=== PATIENT | female | born 1945 | race Caucasian/White ===

== ENCOUNTER 2020-08-15 15:10 | Inpatient (IN) | payer MEDICARE, OTHER, SELFPAY ==
[2020-08-15 15:36] VITALS: BP 143/79; PULSE 95; RESP 19; TEMP 37.1; O2SAT 93; BMI 29.2
--- NOTE | 2020-08-15 15:37 | XRR_ITS ---
PROCEDURE INFORMATION: Exam: XR Chest, 1 View Exam date and time: 08/15/2020 3:54 PM Age: 74 years old Clinical indication: Dyspnea TECHNIQUE: Imaging protocol: XR of the chest Views: 1 view. COMPARISON: CR Chest 1 [place] [id number] 11/10/2019 8:58 AM FINDINGS: Lungs: Patchy parenchymal densities are present in the right upper lobe and left lower lobe these findings are new since prior examination and are suspicious for pneumonia. Low lung volumes seen. Pleural space: Unremarkable. No pleural effusion. No pneumothorax. Heart/Mediastinum: Unremarkable. No cardiomegaly. Bones/joints: Unremarkable. XR/XR chest 1V portable [id number] IMPRESSION: Parenchymal densities right upper lobe and left lower lobe suspicious for pneumonia.
[2020-08-15 16:02] LABS: ABG PCO2 33.6 mmHg (35-45); ABG PH Result 7.53 (7.35-7.45); Arterial Blood Gas Hematocrit 35.7 % (37-47); Base Excess ABG 5.6 mmol/L (-2.0-2.0); Blood Gas Allen Test Pos; Blood Gas Operator Identificat CAK; Blood Gas Sample Site Radial, left; Blood Gas Sample Type Arterial; HCO3 ABG 28.2 mmol/L (22-26); Oxygen Device ROOM AIR; PO2 ABG 58.5 mmHg (80.0-100.0)
--- NOTE | 2020-08-15 16:33 | ED_ITS ---
HPI - SOB/Dyspnea General: Chief Complaint: Shortness of Breath/Dyspnea Stated Complaint: COVID POSS WITH SOB Time Seen by Provider: 08/15/20 15:28 Source: patient Mode of arrival: ambulatory Limitations: no limitations History of Present Illness: HPI Narrative: Mrs. Galeana is a nice 74-year-old female who comes in complaining of shortness of breath. She states she is been short of breath with nonproductive cough for the past 2 days. Patient was diagnosed with the COVID-19 infection on the third of this month. She states that has not had a fever or chills. Initially her symptoms were that of a URI and she was tested at the outpatient office. She states that because she had the shortness of breath and cough she was advised by her doctor to come here to the hospital. She states otherwise she feels fine. She does admit to mild increased shortness of breath with exertion but denies chest pain. Associated symptoms: Deny abdominal pain, chest congestion, chest pain, diaphoresis, dizziness, extremity pain, fever(s), hemoptysis, lightheadedness, nausea, orthopnea, palpitations, syncope or vomiting Review of Systems Const: Denies: fever(s), chills, body aches, fatigue, malaise or diaphoresis Eyes: Denies: change in vision, blurry vision, photophobia, eye discomfort, eye discharge, eye redness or yellow eyes ENMT: Denies: throat pain, odynophagia, hoarseness, swelling of lips/tongue, ear or mastoid pain, ear discharge, change in hearing or nasal discharge Card: Denies: chest pain, palpitations, irregular heart rhythm, edema, lightheadedness, syncope, pre-syncope, dyspnea on exertion or orthopnea Resp: Reports: dyspnea and non-productive cough; Denies: productive cough, wheezing, hemoptysis or chest congestion GI: Denies: abdominal pain, nausea, vomiting, hematemesis, coffee ground emesis, heartburn, diarrhea, constipation, GI cramping, hematochezia or melena : Denies: flank pain, dysuria, urinary frequency, urinary urgency or hematuria Musc: Denies: neck pain, back pain, extremity pain, extremity swelling, joint pain, joint swelling, joint redness, joint warmth or joint stiffness Skin/Breast: Denies: rash, pruritus, erythema, skin pain or skin tenderness Neuro: Denies: headache(s), numbness in extremities, weakness in extremities, sensory changes, lack of coordination, difficulty walking, dizziness, vertigo, confusion, Slurred speech present or seizure-like activity Darshan/Lymph: Denies: easy bruising, easy bleeding, petechiae, purpura or enlarged lymph nodes All/Imm: Denies: urticaria, throat swelling, tongue swelling, facial swelling or acute wheezing PFSH ED PFSH: Medical History (Updated 08/15/20 @ 19:22 by Mitchel Jimenes MD) Allergic rhinitis History of pancreatitis Surgical History (Updated 08/15/20 @ 19:14 by Mitchel Jimenes MD) History of knee surgery Family History (Updated 08/15/20 @ 19:14 by Mitchel Jimenes MD) Other CAD (coronary artery disease) Dementia Social History (Updated 08/15/20 @ 19:14 by Mitchel Jimenes MD) Smoking and tobacco status: never smoked Alcohol intake: never Physical Exam Const: COMMON NORMALS: no acute distress, patient oriented x3, no limitations and alert GENERAL APPEARANCE: cooperative HENMT: COMMON NORMALS: normocephalic, atraumatic, external ears normal, EAC's normal and Normal external nose present HEAD & SCALP: normal to inspection, normocephalic and atraumatic FACE & SINUS: normal facial exam and face s ymmetric NOSE: Normal external nose present and Normal nares present EXTERNAL EAR: Yes external ears normal EXTERNAL AUDITORY CANAL: EAC's normal MOUTH: Normal oral and palatal mucosa present, lip normal and tongue normal Eye: COMMON NORMALS: Equal, round and reactive pupils present and conjunctivae normal GENERAL EYE: appearance normal, both eyes and all related structures ALIGNMENT: Yes alignment normal PERIORBITAL: periorbital findings normal EYELID: eyelids normal CONJUNCTIVA: Yes conjunctivae normal SCLERA: sclerae normal PUPIL: Yes Equal, round and reactive pupils present Neck/C-Spine: COMMON NORMALS: full ROM, no lymphadenopathy, supple, no meningeal signs and no JVD GENERAL: Yes normal visual inspection and Yes trachea midline Chest: COMMONS NORMALS: normal inspection of the chest and normal palpation of entire chest wall Resp: COMMON NORMALS: normal respiratory effort, No retractions, No use of accessory muscles and clear to auscultation bilaterally EFFORT & INSPECTION: Yes able to speak in complete sentences and Yes symmetric chest movement AUSCULTATION: clear to auscultation bilaterally, no crackles, no rales, no rhonchi and no wheezes Cardio: COMMON NORMALS: no JVD, regular rate, regular rhythm, S1 normal heart sound present and S2 normal heart sound present RATE: regular rate RHYTHM: regular rhythm HEART SOUNDS: S1 normal heart sound present, S2 normal heart sound present, no click, no gallops, no murmurs and no rubs GI: COMMON NORMALS: Soft to palpation and No hepatosplenomegaly present PALPATION: Yes Soft to palpation, No Tenderness to palpation present (GI), No Guarding due to palpation present (GI), No Rigid due to palpation, Yes No hepatosplenomegaly present, No Hernia present, No Palpable mass present and No Pulsatile mass present : COMMON NORMALS: Yes no CVA tenderness BLADDER/KIDNEY EXAM: Yes no CVA tenderness EXTERNAL FEMALE EXAM: No Hernia present Back/Pelvis: COMMON NORMALS: no CVA tenderness, thoracic and lumbar spine normal to inspection, no thoracic nor lumbar tenderness and thoraco-lumbar ROM normal Extremity: COMMON NORMALS: normal to inspection, full ROM, capillary refill normal, no joint enlargement, no clubbing, cyanosis or edema and no calf tenderness Neuro: COMMON NORMALS: patient oriented x3, CN's II-XII intact bilaterally, moves all extremities, no focal motor deficits and no sensory deficits noted SENSORIUM/ORIENTATION: Yes alert MENINGEAL SIGNS: Yes no meningeal signs SPEECH: speech normal Psych: COMMON NORMALS: mental status grossly normal, Normal thought process present, cooperative, normal affect, speech normal and activity/motor behavior normal SPEECH: Yes normal speech THOUGHT PROCESS: Normal thought process present Skin: COMMON NORMALS: no rashes or lesions noted, turgor normal, no jaundice, no petechiae and no mottling GENERAL SKIN EXAM: no rashes or lesions noted and turgor normal Course Vital Signs: Vital signs: Vital Signs Temperature 98.8 F 08/15/20 15:36 Pulse Rate 90 08/15/20 18:54 Respiratory Rate 19 H 08/15/20 15:36 Blood Pressure 142/77 08/15/20 18:54 Pulse Oximetry 98 08/15/20 18:54 MDM - SOB/Dyspnea MDM Narrative: Medical decision making narrative: The patient has new onset of shortness of breath with cough and dyspnea on exertion for the past 2 days. She is several days into this Covid infection, it appears at least 14. Possibility of secondary bacterial pneumonia is present or just a prolonged COVID infection is possible. The patient is hypoxic and is requiring supplemental oxygen. She is not in distress. I have discussed the case with Dr. Jimenes he agrees to admission for rhythm severe, Decadron and oxygen. Lab Data: Attestation: I reviewed the patient's lab results. Labs: Lab Results 08/15/20 08/15/20 08/15/20 Range/Units 15:50 17:00 17:00 WBC 6.1 (4.0-10.0) 10^3/ uL RBC 4.03 L (4.1-5.3) 10^6/u L Hgb 12.1 (11.5-15.3) g/dL Hct 37.7 (37.0-47.0) % MCV 93.5 (81-99) fL MCH 30.0 (28.0-34.0) pg MCHC 32.1 (30.0-36.0) g/dL RDW 12.5 (12.1-15.1) % Plt Count 334 (130-400) 10^3/c mm MPV 11.1 H (7.4-10.4) fL Neut % (Auto) 69.0 % Lymph % (Auto) 19.1 % [place] % (Auto) 10.1 % Eos % (Auto) 0.7 % Baso % (Auto) 0.3 % Neut # (Auto) 4.24 (1.8-7.7) 10^3/u L Lymph # (Auto) 1.2 (0.8-4.8) 10^3/u L [place] # (Auto) 0.6 (0.2-0.9) 10^3/u L Eos # (Auto) 0.0 (0.0-0.8) 10^3/u L Baso # (Auto) 0.0 (0.0-0.1) 10^3/u L Nucleated RBC % (a uto) 0 % Nucleated RBCs # 0.0 /100WBC D-Dimer (0-0.59) ug/mIFE U Specimen Type Arterial Sample Site Radial, left ABG pH 7.53 H (7.35-7.45) ABG pCO2 33.6 L (35-45) mmHg ABG pO2 58.5 L (80.0-100.0) mmH g ABG HCO3 28.2 H (22-26) mmol/L ABG Base Excess 5.6 H (-2.0-2.0) mmol/ L Tl Test Pos Hematocrit 35.7 L (37-47) % O2 Delivery Device Room air Elevator Repairer ID Cak Sodium 140 (136-145) mmol/L Potassium 3.2 L (3.5-5.1) mmol/L Chloride 102 (98-107) mmol/L Carbon Dioxide 26 (22-29) mmol/L Anion Gap 15.2 (5-19) BUN 8 (8-23) mg/dL Creatinine 0.6 (0.5-0.9) mg/dL GFR Calculation Not Reportable Glucose 91 (65-115) mg/dL Calculated Osmolal ity 288 (285-295) mOsm/k g Calcium 8.4 L (8.5-10.5) mg/dL Magnesium 2.2 (1.7-2.3) mg/dL Total Bilirubin 0.4 (0.15-1.2) mg/dL AST 96 H (0-32) U/L ALT 70 H (0-33) U/L Alkaline Phosphata se 111 H (35-105) IU/L Lactate Dehydrogen ase 255 H (135-214) U/L C-Reactive Protein 85.8 H (0.0-4.9) mg/L Total Protein 6.9 (6.6-8.7) g/dL Albumin 3.2 L (3.5-5.2) g/dL Globulin 3.7 (1.3-4.6) g/dL 08/15/20 Range/Units 17:00 WBC (4.0-10.0) 10^3/ uL RBC (4.1-5.3) 10^6/u L Hgb (11.5-15.3) g/dL Hct (37.0-47.0) % MCV (81-99) fL MCH (28.0-34.0) pg MCHC (30.0-36.0) g/dL RDW (12.1-15.1) % Plt Count (130-400) 10^3/c mm MPV (7.4-10.4) fL Neut % (Auto) % Lymph % (Auto) % [place] % (Auto) % Eos % (Auto) % Baso % (Auto) % Neut # (Auto) (1.8-7.7) 10^3/u L Lymph # (Auto) (0.8-4.8) 10^3/u L [place] # (Auto) (0.2-0.9) 10^3/u L Eos # (Auto) (0.0-0.8) 10^3/u L Baso # (Auto) (0.0-0.1) 10^3/u L Nucleated RBC % (a uto) % Nucleated RBCs # /100WBC D-Dimer 0.91 H (0-0.59) ug/mIFE U Specimen Type Sample Site ABG pH (7.35-7.45) ABG pCO2 (35-45) mmHg ABG pO2 (80.0-100.0) mmH g ABG HCO3 (22-26) mmol/L ABG Base Excess (-2.0-2.0) mmol/ L Tl Test Hematocrit (37-47) % O2 Delivery Device Elevator Repairer ID Sodium (136-145) mmol/L Potassium (3.5-5.1) mmol/L Chloride (98-107) mmol/L Carbon Dioxide (22-29) mmol/L Anion Gap (5-19) BUN (8-23) mg/dL Creatinine (0.5-0.9) mg/dL GFR Calculation Glucose (65-115) mg/dL Calculated Osmolal ity (285-295) mOsm/k g Calcium (8.5-10.5) mg/dL Magnesium (1.7-2.3) mg/dL Total Bilirubin (0.15-1.2) mg/dL AST (0-32) U/L ALT (0-33) U/L Alkaline Phosphata se (35-105) IU/L Lactate Dehydrogen ase (135-214) U/L C-Reactive Protein (0.0-4.9) mg/L Total Protein (6.6-8.7) g/dL Albumin (3.5-5.2) g/dL Globulin (1.3-4.6) g/dL Imaging Data^: CXR: Attestation: I personally reviewed and interpreted this imaging study as follows: My impression: Mild diffuse interstitial infiltrates Discharge Plan Discharge Patient Disposition: Admitted As Inpatient Admit Provider: Mitchel Jimenes Clinical Impression: Viral pneumonia, Hypoxia, COVID-19 virus infection Condition: Stable Referrals: Eyal Acevedo MD [Family Provider] - Discharge Date/Time: 08/15/20 19:19 Coding Level of Care Code 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
[2020-08-15] MEDS: sodium chloride 0.9% 1,000 ML 999 ML IV (17:00)
[2020-08-15] MEDS: dexamethasone 10 mg/mL INJ IVP (17:00)
[2020-08-15 17:08] VITALS: O2SAT 95
[2020-08-15 17:26] LABS: Basophils % 0.3 %; Eosinophils % 0.7 %; Hematocrit 37.7 % (37.0-47.0); Hemoglobin 12.1 g/dL (11.5-15.3); Lymphocytes # 1.2 10^3/uL (0.8-4.8); Lymphocytes % 19.1 %; Mean Corpuscular HGB Conc 32.1 g/dL (30.0-36.0); Mean Corpuscular Volume 93.5 fL (81-99); Mean Platelet Volume 11.1 fL (7.4-10.4); Monocytes # 0.6 10^3/uL (0.2-0.9); Monocytes % 10.1 %; Neutrophils # 4.24 10^3/uL (1.8-7.7); Nucleated Red Blood Cells % 0 %; Platelet Count 334 10^3/cmm (130-400); Red Blood Count 4.03 10^6/uL (4.1-5.3); Red Cell Distribution Width 12.5 % (12.1-15.1); White Blood Count 6.1 10^3/uL (4.0-10.0)
[2020-08-15 17:38] LABS: D Dimer 0.91 ug/mIFEU (0-0.59)
[2020-08-15 17:46] LABS: Alanine Aminotransferase 70 U/L (0-33); Albumin Level 3.2 g/dL (3.5-5.2); Alkaline Phosphatase 111 IU/L (35-105); Aspartate Amino Transferase 96 U/L (0-32); Blood Urea Nitrogen 8 mg/dL (8-23); Calcium 8.4 mg/dL (8.5-10.5); Carbon Dioxide 26 mmol/L (22-29); Creatinine Clr Calc Pharmacy 56.6792; Globulin 3.7 g/dL (1.3-4.6); Glucose 91 mg/dL (65-115); Magnesium 2.2 mg/dL (1.7-2.3); Total Bilirubin 0.4 mg/dL (0.15-1.2); Total Protein 6.9 g/dL (6.6-8.7)
[2020-08-15 18:01] LABS: Lactate Dehydrogenase 255 U/L (135-214); Potassium 3.2 mmol/L (3.5-5.1)
[2020-08-15 18:12] LABS: Anion Gap 15.2 (5-19); C Reactive Protein 85.8 mg/L (0.0-4.9)
[2020-08-15 18:17] VITALS: BP 155/84; PULSE 81; RESP 20; TEMP 36.8; O2SAT 92
[2020-08-15 18:17] LABS: Chloride 102 mmol/L (98-107); Osmolality Calculated 288 mOsm/kg (285-295); Sodium 140 mmol/L (136-145)
[2020-08-15 18:54] VITALS: BP 142/77; PULSE 90; O2SAT 98
--- NOTE | 2020-08-15 19:09 | PC.NURSE ---
report received from ROMMEL Quinn and care transferred to ROMMEL Ayoub
--- NOTE | 2020-08-15 19:12 | PM.HP ---
Providers/Chief Complaint Admitting Physician: Mitchel Jimenes MD Chief Complaint: COVID POSS WITH SOB History of Present Illness Kevin Galeana is a 74 year old female who reports she was diagnosed with COVID on the third of this month, at [facility]. She reports she initially had congestion, cough, fever. She did not have loss of taste. She had some loose stool and nausea. She seemed to get better, and then got worse again about 3 days ago with cough and shortness of breath. She denies any vomiting. She has had some low-grade temperature elevations. She denies any chest pain. Review of Systems General: Reports: 10 or more systems reviewed and unremarkable except in HPI and below Const: Reports: fever(s), chills and body aches Eyes: Denies: change in vision ENMT: Denies: throat pain Card: Denies: chest pain Resp: Reports: dyspnea and non-productive cough GI: Denies: abdominal pain : Denies: flank pain Musc: Denies: neck pain Skin/Breast: Denies: rash Neuro: Denies: headache(s) Psych: Denies: anxiety Endo: Denies: polyuria Darshan/Lymph: Denies: easy bruising All/Imm: Denies: urticaria Medications/Allergies Home Medications Medication Instructions Recorded Confirmed Last Taken Type cetirizine 5 mg PO DAILY PRN 08/15/20 08/15/20 Unknown History Allergies Allergy/AdvReac Type Severity Reaction Status Date / Time No Known Allergies Allergy Verified 08/15/20 15:39 PFSH Acute PFSH: Medical History (Updated 08/15/20 @ 19:22 by Mitchel Jimenes MD) Allergic rhinitis History of pancreatitis Surgical History (Updated 08/15/20 @ 19:14 by Mitchel Jimenes MD) History of knee surgery Family History (Updated 08/15/20 @ 19:14 by Mitchel Jimenes MD) Other CAD (coronary artery disease) Dementia Social History (Updated 08/15/20 @ 19:14 by Mitchel Jimenes MD) Smoking and tobacco status: never smoked Alcohol intake: never Vitals/I&O/Wt Last Vital Signs Temp 98.8 F 08/15/20 15:36 Pulse 90 08/15/20 18:54 Resp 19 H 08/15/20 15:36 BP 142/77 08/15/20 18:54 Pulse Ox 98 08/15/20 18:54 Weight last 48 hrs Weight 72.575 kg Physical Exam Narrative: EXAM NARRATIVE: General exam is a white female, no apparent distress HEENT: Pupils equally round. Oropharynx clear. Neck supple no lymphadenopathy or thyromegaly. No JVD Cardiovascular regular rate and rhythm without murmur Lungs c a few dry crackles bibasilar Abdomen is soft nontender with positive bowel sounds Extremities no cyanosis clubbing or edema Skin no rash Neuro no focal deficits. Data : 08/15/20 17:00 08/15/20 17:00 Micro: Microbiology 08/15/20 17:00 Blood Culture - Preliminary Blood SPECIMEN COLLECTED 08/15/20 17:00 Blood Culture - Preliminary Blood SPECIMEN COLLECTED Other data: D-dimer elevated at 0.91 pH 7.53, PCO2 33, PO2 58 on room air Liver function tests elevated with AST of 96, ALT 70, alk phos 111, LDH 255. CRP 85.8 Patchy infiltrates right upper and left lower lobe on chest x-ray A&P Assessment and plan (1) Pneumonia due to COVID-19 virus: Somewhat atypical presenting so late. Initiate dexamethasone Initiate remdesivir Albuterol as needed Follow-up inflammatory markers Check BNP Check pro calcitonin in case superimposed bacterial infection could be present Oxygen and supportive care. Wean oxygen as tolerated. Status: Acute (2) Acute respiratory failure: Secondary to above Supportive care with oxygen Status: Acute (3) Hypokalemia: Supplement potassium Check magnesium level Status: Acute Additional A&P Information History of pancreatitis Full code Lovenox for DVT prophylaxis Attestations Medical Necessity Statement*: Will need greater than 2 midnight stay for evaluation and treatment of Covid 19 associated pneumonia Time Spent in Patient Care: Greater than 35 minutes Coding Level of Care Code Acute Access Services Representative for [facility] Diagnoses Pneumonia due to COVID-19 virus U07.1; J12.89 Acute respiratory failure J96.00 Hypokalemia E87.6
[2020-08-15 19:49] VITALS: BP 155/84; PULSE 85; RESP 20; O2SAT 92
[2020-08-15 20:00] VITALS: BP 148/83; PULSE 85; RESP 22; O2SAT 91
[2020-08-15] MEDS: potassium chloride ER 10 mEq Tablet 40 MEQ PO (20:43)
[2020-08-15] MEDS: enoxaparin 40 mg/0.4 mL Syringe SUBCUT (20:44)
[2020-08-15] MEDS: levoFLOXacin 750 mg Tablet PO (20:44)
[2020-08-15 21:08] LABS: Add Urine Microscopic? NO
--- NOTE | 2020-08-15 21:13 | PC.NURSE ---
Admission to VICU Arrived from ED 1944 via gurney, transferred to bed with stand by assist, AO x4, follows commands, speech clear, regular unlabored RR 2L NC, C/O mild SOB that increased with ambulation, lungs clear throughout, chronic skin graft to L thigh site clean dry and intact no redness noted pt reported graft occurred a year and a half ago, supine 45 degrees call light within reach
[2020-08-15 21:27] LABS: Bilirubin Urine Neg (Negative); Blood Urine Neg (Negative); Glucose Urine UA Norm (Normal); Ketones Urine Negative (Negative); Leukocyte Esterase Urine Negative (Negative); Nitrate Urine Negative (Negative); Protein Urine Neg (Negative); Urine Appearance Clear (CLEAR); Urine Color Straw (Yellow); Urobilinogen Urine Norm (Negative); pH Urine 7 (5-7)
[2020-08-15 22:07] LABS: NT Pro B Type Natriuretic Pept 346 pg/mL (0-450); Procalcitonin 0.06 ng/mL (0-0.5)
[2020-08-15 22:18] LABS: Magnesium 2.1 mg/dL (1.7-2.3)
[2020-08-16] VITALS (20 sets, daily range): BP systolic 127–155; BP diastolic 70–95; PULSE 76–97; RESP 15–29; TEMP 36.4–36.7; O2SAT 89–94
[2020-08-16 05:12] LABS: Basophils % 0.2 %; Hematocrit 38.5 % (37.0-47.0); Hemoglobin 12.3 g/dL (11.5-15.3); Lymphocytes # 0.7 10^3/uL (0.8-4.8); Lymphocytes % 14.3 %; Mean Corpuscular HGB Conc 31.9 g/dL (30.0-36.0); Mean Corpuscular Hemoglobin 29.7 pg (28.0-34.0); Monocytes # 0.3 10^3/uL (0.2-0.9); Monocytes % 5.3 %; Neutrophils # 3.76 10^3/uL (1.8-7.7); Neutrophils % 79.4 %; Nucleated Red Blood Cells % 0 %; Platelet Count 437 10^3/cmm (130-400); Red Blood Count 4.14 10^6/uL (4.1-5.3); Red Cell Distribution Width 12.3 % (12.1-15.1); White Blood Count 4.7 10^3/uL (4.0-10.0)
[2020-08-16] MEDS: levoFLOXacin 750 mg Tablet PO (05:37)
[2020-08-16 05:43] LABS: Ferritin 480 ng/mL (15-150)
[2020-08-16 05:52] LABS: D Dimer 0.79 ug/mIFEU (0-0.59)
--- NOTE | 2020-08-16 06:01 | NUR.SHIFT ---
maintains sat 92-93 on 2L NC decreases to 89-90 RA with ambulation, intermittent non productive cough, reports improved respiratory effort from yesterday, afebrile, AOx4, follows commands, transfers with standby assist, denied pain
[2020-08-16] MEDS: dexamethasone 4 mg Tablet 6 MG PO (09:11)
--- NOTE | 2020-08-16 13:26 | PM.PN ---
Subjective Subjective: Interval history: Kevin reports she feels a lot better than she did when she came in. Less short of breath. No nausea. Medications: Reviewed: Yes Vitals/I&O/Wt Last Vital Signs Temp 97.8 F 08/16/20 12:00 Pulse 88 08/16/20 13:13 Resp 21 H 08/16/20 12:00 BP 144/78 08/16/20 12:00 Pulse Ox 94 08/16/20 13:13 08/15/20 08/16/20 08/16/20 22:59 06:59 14:59 Intake Total 478 / 478 Output Total 180 / 180 350 / 530 Balance -180 / -180 -350 / -530 478 / 478 Weight last 48 hrs Weight 72.575 kg Physical Exam Narrative: EXAM NARRATIVE: General exam is a white female, no apparent distress Cardiovascular regular rate and rhythm without murmur Lungs clear Abdomen is soft nontender with positive bowel sounds Extremities no cyanosis clubbing or edema Data : 08/16/20 04:45 08/15/20 17:00 Micro: Microbiology 08/15/20 17:00 Blood Culture - Preliminary Blood SPECIMEN COLLECTED 08/15/20 17:00 Blood Culture - Preliminary Blood SPECIMEN COLLECTED A&P Assessment and plan (1) Pneumonia due to COVID-19 virus: Somewhat atypical presenting so late. Continue dexamethasone Continue remdesivir Albuterol as needed Levaquin added secondary to concern for superimposed bacterial infection Wean oxygen as tolerated BMP was checked and normal. Status: Acute (2) Acute respiratory failure: Secondary to above Supportive care with oxygen Status: Acute (3) Hypokalemia: Supplemented. Magnesium level was normal. 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
--- NOTE | 2020-08-16 14:59 | PC.NURSE ---
pt went to the bathroom Noted desaturation of spO2 to 87-88% during activity on Room Air. Oxygen applied back to 2 L/min NC with longer tubing.
[2020-08-16] MEDS: enoxaparin 40 mg/0.4 mL Syringe SUBCUT (20:24)
[2020-08-16] MEDS: acetaminophen 325 mg Tablet 650 MG PO (20:24)
[2020-08-17] VITALS (16 sets, daily range): BP systolic 137–166; BP diastolic 76–99; PULSE 64–95; RESP 16–26; TEMP 36.5–36.8; O2SAT 90–95
[2020-08-17] MEDS: levoFLOXacin 750 mg Tablet PO (05:40)
[2020-08-17 05:52] LABS: Basophils % 0.1 %; Hematocrit 39.2 % (37.0-47.0); Hemoglobin 12.3 g/dL (11.5-15.3); Lymphocytes # 1.4 10^3/uL (0.8-4.8); Lymphocytes % 9.5 %; Mean Corpuscular HGB Conc 31.4 g/dL (30.0-36.0); Mean Corpuscular Hemoglobin 29.6 pg (28.0-34.0); Mean Corpuscular Volume 94.5 fL (81-99); Mean Platelet Volume 10.8 fL (7.4-10.4); Monocytes # 0.9 10^3/uL (0.2-0.9); Monocytes % 6.1 %; Neutrophils # 12.35 10^3/uL (1.8-7.7); Neutrophils % 83.5 %; Nucleated Red Blood Cells % 0 %; Platelet Count 491 10^3/cmm (130-400); Red Blood Count 4.15 10^6/uL (4.1-5.3); Red Cell Distribution Width 12.5 % (12.1-15.1); White Blood Count 14.8 10^3/uL (4.0-10.0)
[2020-08-17 06:14] LABS: Alanine Aminotransferase 70 U/L (0-33); Albumin Level 3.5 g/dL (3.5-5.2); Alkaline Phosphatase 94 IU/L (35-105); Anion Gap 15.6 (5-19); Aspartate Amino Transferase 35 U/L (0-32); Blood Urea Nitrogen 17 mg/dL (8-23); Calcium 8.6 mg/dL (8.5-10.5); Carbon Dioxide 24 mmol/L (22-29); Chloride 103 mmol/L (98-107); Creatinine Clr Calc Pharmacy 56.6792; Globulin 3.7 g/dL (1.3-4.6); Glucose 151 mg/dL (65-115); Osmolality Calculated 292 mOsm/kg (285-295); Potassium 3.6 mmol/L (3.5-5.1); Sodium 139 mmol/L (136-145); Total Bilirubin 0.2 mg/dL (0.15-1.2); Total Protein 7.2 g/dL (6.6-8.7)
--- NOTE | 2020-08-17 06:52 | PC.NURSE ---
Call to physician Dr. Dumont paged and notified regarding patient and her spouse coming into unit with a positive Covid test. The plan was to room the couple together; however, after reviewing this patient's chart, it was found that patient had not been retested for Covid19. The concern was that if patient was now negative, do we want to risk potentially re-infecting patient since her is positive. After discussing with Dr. Dumont, patient is likely still positive for Covid19 and will be appropriate to place in same room as her spouse.
--- NOTE | 2020-08-17 06:56 | PC.NURSE ---
Shift Events: Patient moved to bigger room, in anticipation of her coming to VICU, so that they can share the same hospital room. Patient remained alert and oriented x 4. Complaints of CHANG that was relieved with tylenol. Patient did not rest until patient's arrived to unit. Remains on 2L O2 nasal cannula.
[2020-08-17] MEDS: pantoprazole DR 40 mg Tablet PO (09:03)
[2020-08-17] MEDS: dexamethasone 4 mg Tablet 6 MG PO (09:03)
--- NOTE | 2020-08-17 12:51 | PM.PN ---
Subjective Subjective: Interval history: Kevin reports she is feeling even better than yesterday. She is down to 1 L of oxygen. No nausea. No fever. Medications: Reviewed: Yes Vitals/I&O/Wt Last Vital Signs Temp 98.2 F 08/17/20 10:46 Pulse 82 08/17/20 12:00 Resp 23 H 08/17/20 12:00 BP 166/89 08/17/20 12:00 Pulse Ox 95 08/17/20 12:00 08/16/20 08/17/20 08/17/20 22:59 06:59 14:59 Intake Total 336 / 1174 100 / 1274 240 / 240 Output Total 1000 / 1000 Balance -664 / 174 100 / 274 240 / 240 Weight last 48 hrs Weight 72.575 kg Physical Exam Narrative: EXAM NARRATIVE: General exam is a white female, no apparent distress Cardiovascular regular rate and rhythm without murmur Lungs clear Abdomen is soft nontender with positive bowel sounds Extremities no cyanosis clubbing or edema Data : 08/17/20 05:20 08/17/20 05:20 Micro: Microbiology 08/15/20 17:00 Blood Culture - Preliminary Blood NEGATIVE TO DATE 08/15/20 17:00 Blood Culture - Preliminary Blood NEGATIVE TO DATE A&P Assessment and plan (1) Pneumonia due to COVID-19 virus: Somewhat atypical presenting so late. Continue dexamethasone Continue remdesivir Albuterol as needed Levaquin added secondary to concern for superimposed bacterial infection Wean oxygen as tolerated She appears to be improving Status: Acute (2) Acute respiratory failure: Secondary to above Supportive care with oxygen Status: Acute (3) Hypokalemia: Supplemented. Magnesium level was normal. 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
[2020-08-17] MEDS: enoxaparin 40 mg/0.4 mL Syringe SUBCUT (21:05)
[2020-08-17] MEDS: polyethylene glycol 3350 Pkt 17 gm PO (21:05)
[2020-08-18] VITALS (20 sets, daily range): BP systolic 129–158; BP diastolic 68–98; PULSE 63–135; RESP 13–25; TEMP 36.6–36.8; O2SAT 90–98
[2020-08-18] MEDS: levoFLOXacin 750 mg Tablet PO (05:17)
[2020-08-18 05:27] LABS: Basophils % 0.1 %; Hematocrit 39.5 % (37.0-47.0); Hemoglobin 12.6 g/dL (11.5-15.3); Lymphocytes # 1.4 10^3/uL (0.8-4.8); Lymphocytes % 13.2 %; Mean Corpuscular HGB Conc 31.9 g/dL (30.0-36.0); Mean Corpuscular Hemoglobin 29.4 pg (28.0-34.0); Mean Corpuscular Volume 92.3 fL (81-99); Mean Platelet Volume 10.1 fL (7.4-10.4); Monocytes # 0.8 10^3/uL (0.2-0.9); Monocytes % 7.8 %; Neutrophils # 8.34 10^3/uL (1.8-7.7); Neutrophils % 77.9 %; Nucleated Red Blood Cells % 0 %; Platelet Count 569 10^3/cmm (130-400); Red Blood Count 4.28 10^6/uL (4.1-5.3); Red Cell Distribution Width 12.5 % (12.1-15.1); White Blood Count 10.7 10^3/uL (4.0-10.0)
[2020-08-18 05:53] LABS: Alanine Aminotransferase 127 U/L (0-33); Albumin Level 3.5 g/dL (3.5-5.2); Alkaline Phosphatase 99 IU/L (35-105); Anion Gap 15.4 (5-19); Aspartate Amino Transferase 91 U/L (0-32); Blood Urea Nitrogen 18 mg/dL (8-23); C Reactive Protein 13.7 mg/L (0.0-4.9); Calcium 8.3 mg/dL (8.5-10.5); Carbon Dioxide 26 mmol/L (22-29); Chloride 105 mmol/L (98-107); Creatinine Clr Calc Pharmacy 56.6792; Globulin 3.6 g/dL (1.3-4.6); Glucose 143 mg/dL (65-115); Osmolality Calculated 298 mOsm/kg (285-295); Potassium 4.4 mmol/L (3.5-5.1); Sodium 142 mmol/L (136-145); Total Bilirubin 0.3 mg/dL (0.15-1.2); Total Protein 7.1 g/dL (6.6-8.7)
[2020-08-18 06:00] LABS: D Dimer 0.57 ug/mIFEU (0-0.59)
[2020-08-18] MEDS: pantoprazole DR 40 mg Tablet PO (08:45)
[2020-08-18] MEDS: dexamethasone 4 mg Tablet 6 MG PO (08:45)
[2020-08-18] MEDS: petrolatum oint Pkt 5 gm 1 APPLIC TOPICAL (08:47)
--- NOTE | 2020-08-18 09:10 | PC.NURSE ---
up in bed am brk served at this time no distress at this time o2 in use watching tv at this time
--- NOTE | 2020-08-18 09:11 | PC.NURSE ---
up to bathroom with cane with max assist some dyspnea noted with activity at this time .. refused to eat any am brk sats at 91 %
--- NOTE | 2020-08-18 12:39 | PM.PN ---
Subjective Subjective: Interval history: Kevin reports she feels a little bit better. Still requiring oxygen at night, and desaturates with exertion to the bathroom. Medications: Reviewed: Yes Vitals/I&O/Wt Last Vital Signs Temp 98.3 F 08/18/20 04:00 Pulse 83 08/18/20 12:00 Resp 16 08/18/20 12:00 BP 148/81 08/18/20 12:00 Pulse Ox 90 08/18/20 12:00 08/17/20 08/18/20 08/18/20 22:59 06:59 14:59 Intake Total 240 / 480 350 / 350 Balance 240 / 480 350 / 350 Physical Exam Narrative: EXAM NARRATIVE: General exam is a white female, no apparent distress Cardiovascular regular rate and rhythm without murmur Lungs a few crackles bilaterally Abdomen is soft nontender with positive bowel sounds Extremities no cyanosis clubbing or edema Data : 08/18/20 05:04 08/18/20 05:04 A&P Assessment and plan (1) Pneumonia due to COVID-19 virus: Somewhat atypical presenting so late. Continue dexamethasone Continue remdesivir Albuterol as needed Levaquin added secondary to concern for superimposed bacterial infection. We will continue this currently Continue to wean oxygen. I am hopeful she might be able to discharge in the next 24 hours to 48 hours. Inflammatory markers today demonstrate normal dimer, markedly improved CRP ALT has increased slightly. Not yet 5 times normal. Will review again tomorrow as antiviral could cause this although COVID could cause as well. Status: Acute (2) Acute respiratory failure: Secondary to above Supportive care with oxygen Improving Status: Acute (3) Hypokalemia: Supplemented. Magnesium level was normal. Potassium is normal now Status: Acute Additional A&P Information History of pancreatitis Full code Lovenox for DVT prophylaxis Attestations Medical Necessity Statement*: Needs continued hospitalization for treatment of Covid 19 pneumonia with antiviral and steroid as well as supportive care. 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
--- NOTE | 2020-08-18 17:16 | DCPLANNER ---
Phoned Pt's cell # [phone] to explain the IM to her. No answer and phone is not taking messages. Will attempt it again tomorrow.
[2020-08-18] MEDS: enoxaparin 40 mg/0.4 mL Syringe SUBCUT (20:58)
[2020-08-18] MEDS: polyethylene glycol 3350 Pkt 17 gm PO (20:58)
[2020-08-19] VITALS (17 sets, daily range): BP systolic 110–130; BP diastolic 78–82; PULSE 62–99; RESP 7–25; TEMP 36.3–36.4; O2SAT 91–94
[2020-08-19] MEDS: levoFLOXacin 750 mg Tablet PO (05:40)
[2020-08-19 06:48] LABS: Basophils % 0.3 %; Eosinophils % 0.1 %; Hematocrit 42.8 % (37.0-47.0); Hemoglobin 13.1 g/dL (11.5-15.3); Lymphocytes # 1.8 10^3/uL (0.8-4.8); Lymphocytes % 16.8 %; Mean Corpuscular HGB Conc 30.6 g/dL (30.0-36.0); Mean Corpuscular Hemoglobin 29.8 pg (28.0-34.0); Mean Corpuscular Volume 97.3 fL (81-99); Monocytes # 1.1 10^3/uL (0.2-0.9); Monocytes % 10.1 %; Neutrophils # 7.54 10^3/uL (1.8-7.7); Neutrophils % 70.8 %; Nucleated Red Blood Cells % 0 %; Platelet Count 428 10^3/cmm (130-400); Red Cell Distribution Width 12.5 % (12.1-15.1); White Blood Count 10.7 10^3/uL (4.0-10.0)
[2020-08-19 07:15] LABS: Alanine Aminotransferase 99 U/L (0-33); Albumin Level 3.1 g/dL (3.5-5.2); Alkaline Phosphatase 83 IU/L (35-105); Aspartate Amino Transferase 42 U/L (0-32); Blood Urea Nitrogen 17 mg/dL (8-23); Calcium 8.8 mg/dL (8.5-10.5); Carbon Dioxide 24 mmol/L (22-29); Chloride 105 mmol/L (98-107); Creatinine Clr Calc Pharmacy 56.6792; Globulin 3.6 g/dL (1.3-4.6); Glucose 124 mg/dL (65-115); Osmolality Calculated 291 mOsm/kg (285-295); Sodium 139 mmol/L (136-145); Total Bilirubin 0.2 mg/dL (0.15-1.2); Total Protein 6.7 g/dL (6.6-8.7)
[2020-08-19] MEDS: pantoprazole DR 40 mg Tablet PO (08:47)
[2020-08-19] MEDS: dexamethasone 4 mg Tablet 6 MG PO (08:47)
--- NOTE | 2020-08-19 14:58 | PM.DCS ---
Discharge Providers Date of Admission: 08/15/20 18:17 Date of Discharge: August 19, 2020 Attending Provider at Admission: Mitchel Jimenes MD Attending Provider at Discharge: Kyle Pascal Diagnoses at Discharge Discharge Diagnosis (1) Pneumonia due to COVID-19 virus: Status: Acute (2) Acute respiratory failure: Status: Acute (3) Hypokalemia: Status: Acute (4) Transaminitis: Status: Acute Reason for Visit Reason for Visit: COVID POSS WITH SOB Hospital Course Hospital Course: Pleasant 74 yo lady diagnosed with COVID on August 01 and [facility] initially had congestion, cough and fever, some loose stool and nausea, seemed to get better, then got worse again about 3 days prior to admission. Reported low-grade temperatures. No chest pain or vomiting. Had chills and body aches. Dyspnea and nonproductive cough. Due to COVID-19 pneumonia she was started on remdesivir, dexamethasone, supportive care with oxygen. Hypokalemia was replaced. AST and ALT transiently elevated, considered possibly due to viral illness or possibly antiviral, but after peak 96 AST, 127 ALT, have been decreasing. She has no abdominal pain and appetite has remained good. She weaned off oxygen support and all other symptoms resolved. She remains afebrile and without any shortness of breath, cough, chest pain or pressure, headache, muscle ache. She is in good spirits, reports feeling very well and is wanting to return home. Discussed with her to follow-up with primary care with regards to reassessing liver function parameters to ensure today normalized. She also has been treated empirically with Levaquin due to possibility of superimposed bacterial infection. She will complete 2 more days after discharge. Discussed with her with regards to isolation. This is a little bit more difficult question to answer as also discussed with her son Kervin. Her original positive test was on 08/01. 20 days from that is going to be tomorrow, and so if she remains asymptomatic and afebrile 24 hours after that, could probably discontinue isolation. On a more cautious approach, molecular testing with negative result and with repetition 24 hours later would be more reliable. They are agreeable to discuss this again with primary care provider. She is aware to watch out for any red flags in herself or her who is also being discharged today and return to the hospital in case of any concerns. She did not qualify for oxygen on home O2 evaluation. Physical Exam Const: COMMON NORMALS: no acute distress and patient oriented x3 HENMT: COMMON NORMALS: oropharynx normal Neck/C-Spine: COMMON NORMALS: no JVD Resp: COMMON NORMALS: normal respiratory effort and clear to auscultation bilaterally AUSCULTATION: clear to auscultation bilaterally Cardio: COMMON NORMALS: no JVD, regular rhythm, S1 normal heart sound present, S2 normal heart sound present and No murmurs present (Cardio) RHYTHM: regular rhythm HEART SOUNDS: S1 normal heart sound present and S2 normal heart sound present GI: COMMON NORMALS: Normal to inspection, nondistended, normoactive bowel sounds present, Soft to palpation and non-tender PALPATION: Yes Soft to palpation Extremity: COMMON NORMALS: no joint enlargement and no pedal edema Neuro: COMMON NORMALS: patient oriented x3 and moves all extremities Skin: COMMON NORMALS: no rashes or lesions noted GENERAL SKIN EXAM: no rashes or lesions noted Discharge Data Data Completed and Pending: Completed Studies During Hospitalization Category Date Time Status XR chest 1V carmela ble [id number] Stat Exams 08/15/20 15:37 Completed Pending at discharge Category Date Time Status Blood Culture Sta t Lab 08/15/20 17:00 Results Labs from last 24 hours 08/19/20 08/19/20 06:35 06:35 WBC 10.7 H RBC 4.40 Hgb 13.1 Hct 42.8 MCV 97.3 MCH 29.8 MCHC 30.6 RDW 12.5 Plt Count 428 H MPV 11.0 H Neut % (Auto) 70.8 Lymph % (Auto) 16.8 Fountain % (Auto) 10.1 Eos % (Auto) 0.1 Baso % (Auto) 0.3 Neut # (Auto) 7.54 Lymph # (Auto) 1.8 Fountain # (Auto) 1.1 H Eos # (Auto) 0.0 Baso # (Auto) 0.0 Nucleated RBC % (a uto) 0 Nucleated RBCs # 0.0 Sodium 139 Potassium 4.0 Chloride 105 Carbon Dioxide 24 Anion Gap 14.0 BUN 17 Creatinine 0.5 GFR Calculation Not Reportable Glucose 124 H Calculated Osmolal ity 291 Calcium 8.8 Total Bilirubin 0.2 AST 42 H ALT 99 H Alkaline Phosphata se 83 Total Protein 6.7 Albumin 3.1 L Globulin 3.6 Vitals: Last Vital Signs Temp 97.5 F L 08/19/20 08:33 Pulse 89 08/19/20 08:33 Resp 21 H 08/19/20 08:33 BP 110/80 08/19/20 08:33 Pulse Ox 94 08/19/20 11:19 Discharge Plan Discharge Patient Disposition: Home Condition: Stable Prescriptions: New levofloxacin 750 mg Tablet 750 mg PO DAILY@0600 Qty: 2 RF: 0 Continued cetirizine 10 mg Tablet 5 mg PO DAILY PRN (Reason: Allergy Symptoms) RF: 0 Pepcid RF: 0 Protonix RF: 0 vitamin B complex RF: 0 Discharge Orders: Discharge Order (Routine); Ordered 08/19/20 Ordered By: Kyle Pascal Referrals: Eyal Acevedo MD [Physician] - 2 weeks Discharge Diet: Cardiac Discharge Activity: Resume usual activity and Increase activity as tolerated Activity Restrictions/Additional Instructions: Please maintain isolation for now until at least tomorrow, and if no further fever or any symptoms for at least 24 hours, potentially could discontinue isolation at that time. If you get significantly short of breath, spike high fevers, develop any chest pain or pressure, any fast breathing, change in color skin with bluing of your fingers or legs, any dizziness or fainting, or any other abnormal symptoms, please seek medical attention immediately. Complete 2 more days of Levaquin for possible superimposed bacterial pneumonia. Please work with your primary care doctor to reassess your liver function parameters as there was noted some mild elevation of AST and ALT while in the hospital which has been improving. Discharge Attestations Time Spent in Discharge Care*: greater than 30 min Quality Metrics Clinical Quality Measures During this hospital stay, did patient experience: None Coding Level of Care Code Acute Credit Operations Processor for [facility] Fwd Diagnoses Pneumonia due to COVID-19 virus U07.1; J12.89 Acute respiratory failure J96.00 Hypokalemia E87.6 Transaminitis R74.0
--- NOTE | 2020-08-19 15:42 | PC.NURSE ---
Dr tello oked for remdisever to be given early for pending DC home
--- NOTE | 2020-08-19 17:37 | PC.NURSE ---
patient discharged home at this time; patient provided discharge instructions along with home medications delivered to bedside patient assisted to wheel chair and accompanied to private vehicle all discharge instruction and belongings in hand patient alert oriented and in stable condition,
--- NOTE | 2020-08-23 09:57 | PC.SOCIAL ---
This conventional underwriter Spoke with Mrs. Kevin Galeana [phone] on the phone. She stated that both her and her were doing well, all except last night when she was having a pancreatitis attack. She stated that she is doing well now. I asked if she or her had seen their PCP since discharge she stated that their appointment is not until September 03. I informer her that if she would not care, I would like to try to see if I can get their appointment moved up sooner. She stated that she would be fine with that. I called [facility] Gutiérrez and they were able to move both their appointments up to this Wednesday at 8:30AM and 8:45AM. I did inform the nurse that Kevin was having the pancreatitis attacks. I spoke a little while about ways to protect their selves from the COVID as well as preventing the spread of the COVID. We spoke about proper face covering, proper hand washing, cleaning surfaces with disinfected, the family plans to have the home fogged to kill any bacteria as well as the car. We also spoke a bit about ways to keep their immune systems up which include healthy eating habits, keeping up on health screenings, lowering stress, and staying up to date with immunizations such as the flu and pneumonia vaccine. Another topic that was discussed was symptoms to monitor. These symptoms were; shortness of breath, trouble breathing, lips and/or face turning blue, tightness and pressure or pain in chest lasting longer then 5 minutes, and fever of 104 or higher. She stated that they did not have any of the symptoms. I also was able to educate both the and on the benefits of plasma donation. They found the information very interesting but feel they will likely not be able to donate.
== END 2020-08-19 17:38 | disposition home or self-care (01) | DRG 177 ==
LOC: ER 18:21 → ICU 18:41
PROVIDERS: Emergency Medicine; Admitting Provider Internal Medicine; Visit Provider Internal Medicine
DX: U07.1 COVID-19 (principal); J12.89 Other viral pneumonia; J96.00 Acute respiratory failure, unspecified whether with hypoxia or hypercapnia; E87.6 Hypokalemia
CPT/HCPCS: 12345; 36415; 36600; 71045; 80053; 81003; 82728; 82803; 83615; 83735; 83880; 84145; 85025; 85378; 86140; 87040; 96372; 96375; 99283; J1100; J1650; J7030; J8540

== ENCOUNTER 2020-12-06 10:35 | Outpatient (CLI) | payer MEDICARE, OTHER, SELFPAY ==
--- NOTE | 2020-12-06 10:48 | XR_ITS ---
WS: [id number] Right knee, 3 views standing, 12/06/2020 Clinical Data: RIGHT KNEE PAIN Comparison: None. Findings: There is lateral joint compartment narrowing. There are some osteophytes of the lateral tibial platea u and lateral femoral condyle. The patella was intact. There is minimal medial compartment narrowing. The soft tissues are normal. XR/XR knee RT 3V* [id number] Impression: Osteoarthritis of the lateral joint compartment of the right knee.
== END 2020-12-06 10:36 | disposition home or self-care (01) ==
LOC: RAD 10:41
PROVIDERS: Visit Provider Emergency Medicine
DX: M17.11 Unilateral primary osteoarthritis, right knee (principal)
CPT/HCPCS: 73562

== ENCOUNTER 2021-01-25 11:12 | Inpatient (IN) | payer MEDICARE, OTHER, SELFPAY ==
[2021-01-25] VITALS (13 sets, daily range): BP systolic 133–188; BP diastolic 66–90; PULSE 64–81; RESP 16–20; TEMP 36.3–37.1; O2SAT 92–98; BMI 30.7
--- NOTE | 2021-01-25 11:42 | XRR_ITS ---
PROCEDURE INFORMATION: Exam: XR Chest Exam date and time: 01/25/2021 12:08 PM Age: 75 years old Clinical indication: Cough and dyspnea; Additional info: Dyspnea/cough TECHNIQUE: Imaging protocol: XR of the chest Views: 1 view. COMPARISON: CR XR chest 1V portable [id number] 08/15/2020 3:45 PM FINDINGS: Lungs: Unremarkable. No consolidation. Pleural spaces: Unremarkable. No pleural effusion. No pneumothorax. Heart/Mediastinum: Unremarkable. No cardiomegaly. Bones/joints: Unremarkable. XR/XR chest 1V portable [id number] IMPRESSION: No acute findings.
--- NOTE | 2021-01-25 11:42 | CTR_ITS ---
PROCEDURE INFORMATION: Exam: CT Abdomen And Pelvis With Contrast Exam date and time: 01/25/2021 12:41 PM Age: 75 years old Clinical indication: Abdominal pain; Epigastric; Additional info: Abd pain TECHNIQUE: Imaging protocol: Computed tomography of the abdomen and pelvis with contrast. Radiation optimization: All CT scans at this facility use at least one of these dose optimization techniques: automated exposure control; mA and/or kV adjustment per patient size (includes targeted exams where dose is matched to clinical indication); or iterative reconstruction. Contrast material: OMNI 300; Contrast volume: 95 ml; Contrast route: INTRAVENOUS (IV); COMPARISON: CT abdomen pelvis w con* [id number] 11/05/2019 8:17 AM RADIATION DOSE METRICS: Total DLP (mGy-cm): 983.77 FINDINGS: Lungs: There is a small benign calcified granuloma in the right lung base. Mediastinal space: Small sliding hiatal hernia. Liver: Multiple small benign calcified granulomas in the liver. No other liver mass. Gallbladder and bile ducts: Normal. No calcified stones. No ductal dilation. Pancreas: There is fluid surrounding the pancreas which also extends into the proximal mesentery and anterior pararenal spaces. These findings are consistent with acute pancreatitis. The pancreas enhances normally. No pancreatic mass or ductal dilatation is seen. Spleen: Small benign calcified granulomas in the spleen. Adrenal glands: Normal. No mass. Kidneys and ureters: Normal. No hydronephrosis. Stomach and bowel: Unremarkable. No obstruction. No mucosal thickening. Appendix: No evidence of appendicitis. Intraperitoneal space: Unremarkable. No free air. No significant fluid collection. Vasculature: Unremarkable. No abdominal aortic aneurysm. Lymph nodes: Unremarkable. No enlarged lymph nodes. Urinary bladder: Unremarkable as visualized. Reproductive: Unremarkable as visualized. Bones/joints: Chronic degenerative changes are present in the spine with disc space narrowing sclerosis and osteophytes. There is grade 1-2 spondylolisthesis at L4-L5. Orthopedic hardware bridges an old left intertrochanteric fracture. Soft tissues: Unremarkable. CT/CT abdomen pelvis w con* [id number] IMPRESSION: Acute pancreatitis. Radiation Dose CTDIVOL = (mGy): DLP = 983.77 (mGy-cm)
[2021-01-25] MEDS: sodium chloride 0.9% 1,000 ML 999 ML IV (12:06)
[2021-01-25] MEDS: ondansetron 2 mg/ML SDV 2 mL 4 MG IVP ×2 (12:06→15:48)
[2021-01-25] MEDS: HYDROmorphone 1 mg/mL INJ 1 mL 0.5 MG IVP ×2 (12:07→14:42)
--- NOTE | 2021-01-25 12:12 | ED_ITS ---
HPI - Abdominal Pain General: Chief Complaint: Abdominal Pain Stated Complaint: abdomen pain Time Seen by Provider: 01/25/21 11:32 History of Present Illness: HPI narrative: 75-year-old female presents to the emergency room with complaints of left upper quadrant pain she has a history of pancreatitis and cholelithiasis yesterday she ate some frozen custard this seems to have triggered it. Overnight she began getting increasing pain with nausea. She denies dysuria urgency or frequency. Not had any chest pain or shortness of breath with this. MD elicited complaint: abdominal pain Pertinent past history: other (Pancreatitis) Onset (ago): hour(s) Pain Consistency: constant Location: Epigastric and LUQ Severity: severe Quality: stabbing Radiation: none Exacerbating factors: eating Relieving factors: rest Associated Symptoms: Reports GI cramping, nausea, poor appetite and vomiting; Denies anorexia, belching, bloating, change in bowel habits, change in stool character, chills, coffee ground emesis, constipation, diarrhea, dyspepsia, dysuria, excessive flatus, fever(s), heartburn, hematochezia, hematuria, hematemesis, fecal incontinence, loose stools, melena and syncope Related Data: Date of Last Menstrual Period: 08/15/00 Review of Systems Const: Denies: fever(s) or chills ENMT: Denies: throat pain, ear or mastoid pain, nasal discharge or nasal congestion Card: Denies: syncope Resp: Denies: dyspnea, productive cough or non-productive cough GI: Reports: nausea, vomiting and GI cramping; Denies: hematemesis, coffee ground emesis, heartburn, diarrhea, constipation, bloating, belching, excessive flatus, fecal incontinence, change in bowel habits, change in stool character, hematochezia or melena : Denies: dysuria or hematuria Skin/Breast: Denies: rash or pruritus PFSH ED PFSH: Medical History Acute pancreatitis Allergic rhinitis History of pancreatitis Surgical History History of knee surgery Family History Other CAD (coronary artery disease) Dementia Social History Smoking and tobacco status: never smoked Alcohol intake: never Female Reproductive History: Date of last menstrual period: 08/15/00 Physical Exam Const: COMMON NORMALS: no acute distress GENERAL APPEARANCE: cooperative and comfortable ORIENTATION/CONSCIOUSNESS: Yes awake, Yes oriented to person, Yes oriented to place and Yes oriented to time HENMT: COMMON NORMALS: normocephalic, atraumatic and hearing grossly normal bilaterally HEAD & SCALP: normocephalic and atraumatic Neck/C-Spine: COMMON NORMALS: no JVD Resp: COMMON NORMALS: normal respiratory effort, No retractions, No use of accessory muscles and clear to auscultation bilaterally AUSCULTATION: clear to auscultation bilaterally Cardio: COMMON NORMALS: no JVD, regular rate, regular rhythm and No murmurs present (Cardio) RATE: regular rate RHYTHM: regular rhythm GI: COMMON NORMALS: No hepatosplenomegaly present AUSCULTATION: Yes normoactive bowel sounds PALPATION: Yes Tenderness to palpation present (GI) Details: LUQ, No Guarding due to palpation present (GI) and Yes No hepatosplenomegaly present Extremity: COMMON NORMALS: normal to inspection, capillary refill normal, no clubbing, cyanosis or edema, no calf tenderness and no pedal edema Neuro: SENSORIUM/ORIENTATION: Yes oriented to person, Yes oriented to place and Yes oriented to time Skin: COMMON NORMALS: no rashes or lesions noted GENERAL SKIN EXAM: no rashes or lesions noted Course Vital Signs: Vital signs: Vital Signs Temperature 98.1 F 01/30/21 20:00 Pulse Rate 94 01/30/21 20:00 Respiratory Rate 18 01/30/21 20:00 Blood Pressure 137/84 01/30/21 20:00 Pulse Oximetry 95 01/30/21 20:00 MDM - Abdominal Pain MDM Narrative: Medical decision making narrative: Lipase greater than 9200. CT shows acute pancreatitis patient will be admitted started on IV antibiotics IV fluids antiemetics pain control and kept n.p.o. discussed with hospitalist orders written Lab Data: Labs: Lab Results 01/25/21 01/25/21 01/25/21 Range/Units 11:50 11:50 12:17 WBC 11.3 H (4.0-10.0) 10^3/ uL RBC 5.15 (4.1-5.3) 10^6/u L Hgb 15.2 (11.5-15.3) g/dL Hct 46.8 (37.0-47.0) % MCV 90.9 (81-99) fL MCH 29.5 (28.0-34.0) pg MCHC 32.5 (30.0-36.0) g/dL RDW 12.6 (12.1-15.1) % Plt Count 277 (130-400) 10^3/c mm MPV 10.7 H (7.4-10.4) fL Neut % (Auto) 73.6 % Lymph % (Auto) 17.7 % Granite % (Auto) 6.9 % Eos % (Auto) 1.0 % Baso % (Auto) 0.4 % Neut # (Auto) 8.34 H (1.8-7.7) 10^3/u L Lymph # (Auto) 2.0 (0.8-4.8) 10^3/u L Granite # (Auto) 0.8 (0.2-0.9) 10^3/u L Eos # (Auto) 0.1 (0.0-0.8) 10^3/u L Baso # (Auto) 0.0 (0.0-0.1) 10^3/u L Nucleated RBC % (a uto) 0 % Nucleated RBCs # 0.0 /100WBC Sodium 140 (136-145) mmol/L Potassium 3.4 L (3.5-5.1) mmol/L Chloride 103 (98-107) mmol/L Carbon Dioxide 24 (22-29) mmol/L Anion Gap 16.4 (5-19) BUN 15 (8-23) mg/dL Creatinine 0.7 (0.5-0.9) mg/dL GFR Calculation Not Reportable Glucose 122 H (65-115) mg/dL Calculated Osmolal ity 292 (285-295) mOsm/k g Calcium 9.5 (8.5-10.5) mg/dL Magnesium 1.7 (1.7-2.3) mg/dL Total Bilirubin 0.6 (0.15-1.2) mg/dL AST 19 (0-32) U/L ALT 14 (0-33) U/L Alkaline Phosphata se 71 (35-105) IU/L Total Protein 7.5 (6.6-8.7) g/dL Albumin 4.4 (3.5-5.2) g/dL Globulin 3.1 (1.3-4.6) g/dL Lipase > 9270 H (13-60) U/L Urine Color Dark yellow (Yellow) Urine Appearance Clear (CLEAR) Urine pH 5 (5-7) Ur Specific Gravit y 1.020 (1.005-1.030) Urine Protein Trace (Negative) Urine Glucose (UA) Norm (Normal) Urine Ketones Negative (Negative) Urine Blood Neg (Negative) Urine Nitrate Negative (Negative) Urine Bilirubin Neg (Negative) Urine Urobilinogen Norm (Negative) mg/dL Ur Leukocyte Johanna ase Negative (Negative) Urine RBC None (0-2) /hpf Urine WBC Rare (0-5) /hpf Ur Squamous Epith Cells 0-4 H (0-5) /hpf Amorphous Sediment 1+ /hpf Urine Bacteria Trace (NONE) /hpf Hyaline Casts 0-4 H /lpf Coarse Granular Ca sts 0-4 H /lpf Urine Mucus 2+ /hpf Discharge Plan Discharge Admit Provider: Alysa Wei Condition: Stable Discharge Orders: Discharge Order (Routine); Ordered 01/30/21 Ordered By: Kyle Pacsal Discharge Diet: Diabetic and Low Fat Discharge Activity: Increase activity as tolerated Coding Level of Care Code ED Respiratory Scientist for Anam Aguilera
[2021-01-25 12:16] LABS: Basophils % 0.4 %; Eosinophils # 0.1 10^3/uL (0.0-0.8); Hematocrit 46.8 % (37.0-47.0); Hemoglobin 15.2 g/dL (11.5-15.3); Lymphocytes % 17.7 %; Mean Corpuscular HGB Conc 32.5 g/dL (30.0-36.0); Mean Corpuscular Hemoglobin 29.5 pg (28.0-34.0); Mean Corpuscular Volume 90.9 fL (81-99); Mean Platelet Volume 10.7 fL (7.4-10.4); Monocytes # 0.8 10^3/uL (0.2-0.9); Monocytes % 6.9 %; Neutrophils # 8.34 10^3/uL (1.8-7.7); Neutrophils % 73.6 %; Nucleated Red Blood Cells % 0 %; Platelet Count 277 10^3/cmm (130-400); Red Blood Count 5.15 10^6/uL (4.1-5.3); Red Cell Distribution Width 12.6 % (12.1-15.1); White Blood Count 11.3 10^3/uL (4.0-10.0)
[2021-01-25 12:19] LABS: Alanine Aminotransferase 14 U/L (0-33); Albumin Level 4.4 g/dL (3.5-5.2); Alkaline Phosphatase 71 IU/L (35-105); Anion Gap 16.4 (5-19); Aspartate Amino Transferase 19 U/L (0-32); Blood Urea Nitrogen 15 mg/dL (8-23); Calcium 9.5 mg/dL (8.5-10.5); Carbon Dioxide 24 mmol/L (22-29); Chloride 103 mmol/L (98-107); Globulin 3.1 g/dL (1.3-4.6); Glucose 122 mg/dL (65-115); Magnesium 1.7 mg/dL (1.7-2.3); Osmolality Calculated 292 mOsm/kg (285-295); Potassium 3.4 mmol/L (3.5-5.1); Sodium 140 mmol/L (136-145); Total Bilirubin 0.6 mg/dL (0.15-1.2); Total Protein 7.5 g/dL (6.6-8.7)
--- NOTE | 2021-01-25 12:21 | ECG_ITS ---
[facility] Test Date: 2021-01-25 Pat Name: Kevin Galeana Department: Room: Gender: Female Tooth Grinder: : 1945 Requested By: Raji Desai Order Number: [id number] Rohith MD: Zachary Loja M.D. Measurements Intervals Halliday Rate: 67 P: 10 SD: 171 QRS: -42 QRSD: 142 T: -14 QT: 439 QTc: 465 Interpretive Statements SINUS RHYTHM RIGHT BUNDLE BRANCH BLOCK [120+ ms QRS DURATION, UPRIGHT V1, 40+ ms S IN I/aVL/V4/V5/V6] POSSIBLE ANTERIOR MYOCARDIAL INFARCTION [30 ms Q WAVE IN V3/V4, OR R < 0.2 mV IN V4], OF INDETERMINATE AGE INFERIOR MYOCARDIAL INFARCTION [40+ ms Q WAVE AND/OR ST/T ABNORMALITY IN II/aVF], OF INDETERMINATE AGE Compared to ECG 11/05/2019 08:57:20 Myocardial infarct finding now present Sinus arrhythmia no longer present Electronically Signed On 01-26-2021 17:14:19 WEATHERIZATION FIELD TECHNICIAN by Zachary Loja M.D. [email or web address] medical groupAdvanced Manufacturing Control Systemsparma [facility].[employer]/store/NU/[id number] rivera
[2021-01-25] MEDS: iohexol 300 mg/mL 100 mL Btl IV (12:53)
[2021-01-25 13:40] LABS: Urine Appearance Clear (CLEAR); Urine Color Dark Yellow (Yellow); pH Urine 5 (5-7)
[2021-01-25 13:41] LABS: Add Urine Microscopic? YES; Amorphous Sediment Urine 1+ /hpf; Bacteria Urine TRACE /hpf; Bilirubin Urine Neg (Negative); Blood Urine Neg (Negative); Glucose Urine UA Norm (Normal); Hyaline Casts Urine 0-4 /lpf; Ketones Urine Negative (Negative); Leukocyte Esterase Urine Negative (Negative); Mucus Urine 2+ /hpf; Nitrate Urine Negative (Negative); Protein Urine Trace (Negative); Squamous Epithelial Cell Urine 0-4 /hpf (0-5); Urobilinogen Urine Norm (Negative); WBC Urine RARE /hpf (0-5)
[2021-01-25 13:43] LABS: Add Urine Culture? No; Coarse Granular Casts Urine 0-4 /lpf
[2021-01-25] MEDS: piperacillin-tazobactam 3.375 GM in sodium chloride 0.9% (plus) 50 ML IV (13:56)
[2021-01-25] MEDS: HYDROmorphone 1 mg/mL INJ 1 mL 0.2 MG IVP ×3 (16:10→23:30)
[2021-01-25] MEDS: D5-NS 0.45% + KCL 20 mEq 20 MEQ/1,000 ML BAG 125 MEQ IV (16:19)
--- NOTE | 2021-01-25 16:26 | P.HP_ITS ---
Providers/Chief Complaint Admitting Physician: Alysa Wei Primary Care Provider: Eyal Acevedo MD Chief Complaint: abdomen pain History of Present Illness 74-year-old female with a past medical history significant for COVID-19 pneumonia for which she was admitted in July 2020, gastritis and pancreatitis who has presented to the hospital with mid epigastric abdominal elizabeth n. This has been progressively worsening for the past few days. Associated with nausea and poor appetite. Patient follows with gastroenterology in [place]. Previous episode was suspected to be related to gallstones. Denies any recent fever chills. No respiratory distress chest pain, diarrhea or constipation. Laboratory workup on arrival showed a WBC of 11.3, hemoglobin of 15.2, hematocrit of 46.8 and a platelet count of 277. Sodium 140, potassium 3.4, chloride 103, bicarb 24, BUN 15 and creatinine 0.7. Lipase is pending. LFTs were within normal limits. Urinalysis was normal. CT of abdomen pelvis was performed which showed fluid surrounding the pancreas extending into the proximal mesentery in anterior prior renal spaces. These findings were consistent with acute pancreatitis. Of note in review of gallbladder, no stones or ductal dilation was noted. Chest x-ray did not show any acute findings. Patient was admitted to the hospital for ongoing management of acute pancr eatitis. Review of Systems General: Reports: 10 or more systems reviewed and unremarkable except in HPI and below Medications/Allergies Home Medications Medication Instructions Recorded Confirmed Last Taken Type cetirizine 5 mg PO DAILY PRN 08/15/20 01/25/21 01/24/21 History Protonix 1 tab PO DAILY@0930 08/16/20 01/25/21 01/24/21 History vitamin B complex 1 tab PO DAILY@0930 08/16/20 01/25/21 01/24/21 History Vitamin D3 1 tab PO DAILY@0930 01/25/21 01/25/21 01/24/21 History multivitamin with minerals 1 tab PO DAILY@0930 01/25/21 01/25/21 01/24/21 History [Hair,Skin and Nails] polyethylene glycol 3350 [Miralax] 17 g PO DAILY@0930 01/25/21 01/25/21 01/24/21 History Allergies Allergy/AdvReac Type Severity Reaction Status Date / Time morphine Allergy ADR-Nausea Verified 01/25/21 11:25 PFSH Acute PFSH: Medical History (Updated 01/25/21 @ 16:27 by Alysa Wei MD) Allergic rhinitis History of pancreatitis Surgical History (Updated 08/15/20 @ 19:14 by Mitchel Jimenes MD) History of knee surgery Family History (Updated 08/15/20 @ 19:14 by Mitchel Jimenes MD) Other CAD (coronary artery disease) Dementia Social History (Updated 08/15/20 @ 19:14 by Mitchel Jimenes MD) Smoking and tobacco status: never smoked Alcohol intake: never Female Reproductive History: Date of last menstrual period: 08/15/00 Vitals/I&O/Wt Last Vital Signs Temp 98.7 F 01/25/21 15:38 Pulse 65 01/25/21 15:38 Resp 18 01/25/21 16:10 BP 159/84 01/25/21 15:38 Pulse Ox 96 01/25/21 16:10 Weight last 48 hrs Weight 76.204 kg Physical Exam Narrative: EXAM NARRATIVE: General-mild distress due to abdominal pain HEENT-grossly unremarkable CVS-regular rate rhythm Chest-clear to auscultation bilaterally Abdomen-tenderness to palpation in mid epigastric region Extremities-no lower extremity edema Neuro-which grossly unremarkable Psych-cooperative Data : 01/25/21 11:50 01/25/21 11:50 A&P Assessment and plan (1) Acute pancreatitis: Status: Acute (2) Gastritis: Status: Acute Acute Pancreatitis - Lipase pending - CT abd/pelvis - fluid surrounding pancreas extending to p.mesentery - Bowel rest - NPO - IVF as ordered - IV pain control - Zofran PRN for nausea - May consider surgery consult - CMP, Lipase in am Hypokalemia - K 3.4 - IVF fluid replacement additive Hx of COVID Pneumonia - Chest x-ray stable - No further work up Gastritis - Pepcid 20 mg IV BID DVT pox - Lovenox 40 mg SQ daily Attestations Medical Necessity Statement*: Patient will require over 2 midnight stay in hospital for evaluation and treatment of acute pancreatitis requiring IV fluids and IV pain medication Time Spent in Patient Care: Greater than 35 minutes (>than 50% of time spent in counselling and/or direct pt care on unit) . Coding Level of Care Code Acute Undercover Operator for g Fwd Diagnoses Acute pancreatitis K85.90 Gastritis K29.70
[2021-01-25] MEDS: enoxaparin 40 mg/0.4 mL Syringe SUBCUT (17:33)
[2021-01-25] MEDS: famotidine 20 mg/2 mL INJ IVP (17:34)
[2021-01-26] VITALS (9 sets, daily range): BP systolic 145–176; BP diastolic 75–89; PULSE 62–83; RESP 16–20; TEMP 36.6–37.9; O2SAT 92–95
[2021-01-26] MEDS: D5-NS 0.45% + KCL 20 mEq 20 MEQ/1,000 ML BAG 125 MEQ IV ×2 (00:40→11:22)
--- NOTE | 2021-01-26 02:01 | PC.NURSE ---
Verbal order received from Dr. Dumont to discontinue the telemetry at this time.
[2021-01-26] MEDS: HYDROmorphone 1 mg/mL INJ 1 mL 0.2 MG IVP ×3 (02:36→18:12)
[2021-01-26] MEDS: ondansetron 2 mg/ML SDV 2 mL 4 MG IVP (02:40)
[2021-01-26] MEDS: famotidine 20 mg/2 mL INJ IVP ×2 (05:37→17:33)
[2021-01-26 06:31] LABS: Basophils % 0.1 %; Hematocrit 44.3 % (37.0-47.0); Hemoglobin 14.1 g/dL (11.5-15.3); Lymphocytes % 5.9 %; Mean Corpuscular HGB Conc 31.8 g/dL (30.0-36.0); Mean Corpuscular Hemoglobin 29.8 pg (28.0-34.0); Mean Corpuscular Volume 93.7 fL (81-99); Mean Platelet Volume 10.3 fL (7.4-10.4); Monocytes # 1.1 10^3/uL (0.2-0.9); Monocytes % 6.7 %; Neutrophils # 14.71 10^3/uL (1.8-7.7); Neutrophils % 86.9 %; Nucleated Red Blood Cells % 0 %; Platelet Count 257 10^3/cmm (130-400); Red Blood Count 4.73 10^6/uL (4.1-5.3); Red Cell Distribution Width 12.8 % (12.1-15.1); White Blood Count 16.9 10^3/uL (4.0-10.0)
[2021-01-26 06:59] LABS: Alanine Aminotransferase 12 U/L (0-33); Albumin Level 3.6 g/dL (3.5-5.2); Alkaline Phosphatase 59 IU/L (35-105); Anion Gap 14.6 (5-19); Aspartate Amino Transferase 15 U/L (0-32); Blood Urea Nitrogen 9 mg/dL (8-23); Calcium 8.4 mg/dL (8.5-10.5); Carbon Dioxide 21 mmol/L (22-29); Chloride 106 mmol/L (98-107); Globulin 2.9 g/dL (1.3-4.6); Glucose 164 mg/dL (65-115); Osmolality Calculated 288 mOsm/kg (285-295); Potassium 3.6 mmol/L (3.5-5.1); Sodium 138 mmol/L (136-145); Total Bilirubin 0.4 mg/dL (0.15-1.2); Total Protein 6.5 g/dL (6.6-8.7)
--- NOTE | 2021-01-26 07:19 | PC.NURSE ---
Bedside report to Inna CARNEY at this time.
[2021-01-26 07:27] LABS: Lipase 1237 U/L (13-60)
--- NOTE | 2021-01-26 17:23 | PM.PN ---
Subjective Subjective: Interval history: Patient noted significant improvement in pain. She did have multiple episodes of nausea and vomiting overnight. No fevers or chills. Low-grade temp. Wanting to Advanced diet. Medications: Reviewed: Yes Vitals/I&O/Wt Last Vital Signs Temp 99.5 F 01/26/21 15:26 Pulse 80 01/26/21 15:26 Resp 17 01/26/21 15:26 BP 152/76 01/26/21 15:26 Pulse Ox 93 01/26/21 15:26 01/26/21 01/26/21 01/26/21 06:59 14:59 22:59 Intake Total 1000 / 1150 1000 / 1000 Output Total 100 / 600 Balance 900 / 550 1000 / 1000 Weight last 48 hrs Weight 76.204 kg Physical Exam Narrative: EXAM NARRATIVE: General-mild distress due to abdominal pain HEENT-grossly unremarkable CVS-regular rate rhythm Chest-clear to auscultation bilaterally Abdomen-tenderness to palpation in mid epigastric region Extremities-no lower extremity edema Neuro-which grossly unremarkable Psych-cooperative Data : 01/26/21 06:00 01/26/21 06:00 A&P Assessment and plan (1) Acute pancreatitis: Status: Acute (2) Gastritis: Status: Acute Acute Pancreatitis - Hx of prior episode >1 year prior - Lipase > 9000 -> 1237 - CT abd/pelvis - fluid surrounding pancreas extending to p.mesentery - Leukocytosis - afebrile - holding on abx for now - NPO -> advanced to [facility] today - IVF NS at 75cc/hr - IV pain control - Zofran PRN for nausea - May consider surgery consult - Patient would like to return to [place] for GS - CMP, Lipase in am Hypokalemia - K 3.4 - 3.6 - CMP in am - Replace as needed. Hx of COVID Pneumonia - Chest x-ray stable - No further work up Gastritis - Pepcid 20 mg IV BID DVT pox - Lovenox 40 mg SQ daily Disposition: - Plan to return to home once stable for discharge. Attestations Medical Necessity Statement*: Will require further hospitalization for management of acute pancreatitis Time Spent in Patient Care: Greater than 35 minutes Coding Level of Care Code Acute Trench Pipe Layer for Anam Aguielra Diagnoses Acute pancreatitis K85.90 Gastritis K29.70
[2021-01-26] MEDS: enoxaparin 40 mg/0.4 mL Syringe SUBCUT (17:33)
[2021-01-26] MEDS: sodium chloride 0.9% 1,000 ML 75 ML IV (18:22)
--- NOTE | 2021-01-27 | CT_ITS ---
NOTE: Report was unsigned for reason: Order was edited. Original Signature date and time was: 01/27/[address] ABDOMEN AND PELVIS NONCONTRAST HISTORY: sepsis, abdominal pain TECHNIQUE: Imaging performed through the abdomen and pelvis. Coronal and sagittal reformats are submitted. All CT scans at [facility] use at least one of these dose optimization techniques: automated exposure control; mA and/or kV adjustment per patient size (includes targeted exams where dose is matched to clinical indication); or iterative reconstruction. DLP: 893.04 mGy.cm COMPARISON: 01/25/2021 Lower thorax: New small bilateral pleural effusion since the prior study. Chronic emphysematous changes at the lung bases. 5 mm nodule at the RIGHT lung base is stable since 11/05/2019. Small hiatal hernia. Liver: Enlarged liver with hepatic steatosis and prior granulomatous disease. Gallbladder: Normally distended gallbladder contains stones. High density contrast in the gallbladder from vicarious excretion and prior contrast injection. There is mild thickening of the wall the gallbladder. Pancreas: Pancreas is edematous and enlarged. Moderate amount of peripancreatic fluid with loss of the normal contours of the pancreas. Spleen: Normal spleen with granulomata. Adrenal glands: Normal. No mass. Right kidney: Mild perinephric stranding. No obstruction. Left kidney: Mild perinephric stranding with no obstruction. Aorta: Mild atherosclerosis abdominal aorta with no aneurysm. No adenopathy identified. Increase in the amount of mesenteric edema. Overall there is been increase in the stranding and fat stranding throughout the abdomen. GI tract: Increase in the amount of air fecal material throughout the colon. Appendix is normal. Abdominal wall: Negative. No hernia. Pelvis: Atrophic uterus as expected. No free fluid in the pelvis. Osseous structures: L4 anterolisthesis by 10 mm. IMPRESSION: 1. Overall increased in the amount of mesenteric edema and anasarca as compared to 01/25/2021. 2. New small bilateral pleural effusions. 3. Changes of acute pancreatitis with no abscess. 4. Cholelithiasis with no bile duct dilatation. 5. New perinephric stranding around each kidney with no obstruction. Correlate for possible acute polynephritis. 6. [facility] abdomen pelvis wo con [id number] IMPRESSION: 1. Overall increased in the amount of mesenteric edema and anasarca as compare d to 01/25/2021. 2. New small bilateral pleural effusions. 3. Changes of acute pancreatitis with no abscess. 4. Cholelithiasis with no bile duct dilatation. 5. New perinephric stranding around each kidney with no obstruction. Correlate for possible acute polynephritis. 6. Constipation.
[2021-01-27 03:58] VITALS: BP 144/72; PULSE 78; RESP 17; TEMP 37.9; O2SAT 91
[2021-01-27] MEDS: ondansetron 2 mg/ML SDV 2 mL 4 MG IVP (06:08)
[2021-01-27] MEDS: famotidine 20 mg/2 mL INJ IVP ×2 (06:08→17:43)
[2021-01-27 07:04] LABS: Basophils # 0.1 10^3/uL (0.0-0.1); Basophils % 0.3 %; Hematocrit 37.8 % (37.0-47.0); Hemoglobin 12.4 g/dL (11.5-15.3); Lymphocytes # 1.4 10^3/uL (0.8-4.8); Lymphocytes % 7.4 %; Mean Corpuscular HGB Conc 32.8 g/dL (30.0-36.0); Mean Corpuscular Volume 91.5 fL (81-99); Mean Platelet Volume 10.9 fL (7.4-10.4); Monocytes # 1.5 10^3/uL (0.2-0.9); Monocytes % 8.1 %; Neutrophils # 15.76 10^3/uL (1.8-7.7); Neutrophils % 83.6 %; Nucleated Red Blood Cells % 0 %; Platelet Count 216 10^3/cmm (130-400); Red Blood Count 4.13 10^6/uL (4.1-5.3); White Blood Count 18.9 10^3/uL (4.0-10.0)
[2021-01-27 07:18] LABS: Alanine Aminotransferase 10 U/L (0-33); Albumin Level 3.3 g/dL (3.5-5.2); Alkaline Phosphatase 57 IU/L (35-105); Anion Gap 13.3 (5-19); Aspartate Amino Transferase 17 U/L (0-32); Blood Urea Nitrogen 5 mg/dL (8-23); Calcium 8.1 mg/dL (8.5-10.5); Carbon Dioxide 25 mmol/L (22-29); Chloride 102 mmol/L (98-107); Globulin 2.8 g/dL (1.3-4.6); Glucose 103 mg/dL (65-115); Lipase 235 U/L (13-60); Osmolality Calculated 282 mOsm/kg (285-295); Potassium 3.3 mmol/L (3.5-5.1); Sodium 137 mmol/L (136-145); Total Protein 6.1 g/dL (6.6-8.7)
[2021-01-27 07:25] VITALS: BP 159/79; PULSE 73; RESP 18; TEMP 36.7; O2SAT 93
[2021-01-27] MEDS: sodium chloride 0.9% 1,000 ML 75 ML IV (08:14)
--- NOTE | 2021-01-27 10:34 | XRR_ITS ---
PROCEDURE INFORMATION: Exam: XR Chest Exam date and time: 01/27/2021 10:42 AM Age: 75 years old Clinical indication: Patient HX: Fever, abdomen pain TECHNIQUE: Imaging protocol: XR of the chest Views: 1 view. COMPARISON: CR (CHEST, ) 01/25/2021 12:06 PM FINDINGS: Lungs: Interstitial prominence and chronic granulomatous disease. Pleural spaces: No pleural effusion. Heart/Mediastinum: Borderline cardiomegaly. Vasculature: Ectasia of the thoracic aorta. Bones/joints: Osteopenia and degenerative change. Gastrointestinal tract: Bowel dilatation in the visualized upper abdomen. XR/XR chest 1V portable [id number] IMPRESSION: 1. Interstitial prominence and chronic granulomatous disease. 2. Additional findings as described above.
[2021-01-27 11:22] VITALS: BP 142/77; PULSE 73; RESP 18; TEMP 37.7; O2SAT 91
--- NOTE | 2021-01-27 11:24 | US_ITS ---
WS: [id number] RIGHT UPPER QUADRANT ULTRASOUND HISTORY: hepatobiliary - sepsis, cholelithiasis COMPARISON: None available. Liver: 16.1 cm in length. Normal size liver. No bile duct dilatation or mass. Gallbladder: Normally distended with cholelithiasis. Nonshadowing focus within the gallbladder also m ay be a gallbladder polyp. No significant wall thickening or pericholecystic fluid. CBD: 0.6 cm Pancreas: Not visualized. Completely obscured by bowel gas. Right kidney: 10.4 cm in length. Normal size and echogenicity. No hydronephrosis or mass. Aorta and IVC: Unremarkable abdominal aorta and IVC. No ascites. US/US abdomen limited [id number] IMPRESSION: 1. Cholelithiasis without evidence for acute cholecystitis. 2. No bile duct dilatation. 3. Pancreas not visualized.
--- NOTE | 2021-01-27 11:24 | CT_ITS ---
WS: [id number] CT ABDOMEN AND PELVIS NONCONTRAST HISTORY: sepsis, abdominal pain TECHNIQUE: Imaging performed through the abdomen and pelvis. Coronal and sagittal reformats are submi tted. All CT scans at [facility] use at least one of these dose optimization techniques: automated exposure control; mA and/or kV adjustment per patient size (includes targeted exams where d ose is matched to clinical indication); or iterative reconstruction. DLP: 893.04 mGy.cm COMPARISON: 01/25/2021 Lower thorax: New small bilateral pleural effusion since the prior study. Chronic emphysematous martin es at the lung bases. 5 mm nodule at the RIGHT lung base is stable since 11/05/2019. Small hiatal kimberly ia. Liver: Enlarged liver with hepatic steatosis and prior granulomatous disease. Gallbladder: Normally distended gallbladder contains stones. High density contrast in the gallbladder from vicarious excretion and prior contrast injection. There is mild thickening of the wall the gall bladder. Pancreas: Pancreas is edematous and enlarged. Moderate amount of peripancreatic fluid with loss of th e normal contours of the pancreas. Spleen: Normal spleen with granulomata. Adrenal glands: Normal. No mass. Right kidney: Mild perinephric stranding. No obstruction. Left kidney: Mild perinephric stranding with no obstruction. Aorta: Mild atherosclerosis abdominal aorta with no aneurysm. No adenopathy identified. Increase in the amount of mesenteric edema. Overall there is been increase in the stranding and fat stranding throughout the abdomen. GI tract: Increase in the amount of air fecal material throughout the colon. Appendix is normal. Abdominal wall: Negative. No hernia. Pelvis: Atrophic uterus as expected. No free fluid in the pelvis. Osseous structures: L4 anterolisthesis by 10 mm.
--- NOTE | 2021-01-27 11:24 | MR_ITS ---
WS: [id number] MRI RIGHT KNEE HISTORY: sepsis, recent knee injection COMPARISON: None available. Anterior cruciate ligament: No identifiable ACL. Posterior cruciate ligament: Intact. Medial collateral ligament: Partial tear in the proximal MCL. No full-thickness tear. Posterior lateral corner structures: Mild thickening involving the posterior lateral corner structure s. No tear. Medial menisci: Intrasubstance degeneration in the anterior and posterior horns. No tear. Lateral meniscus: Markedly abnormal meniscus. No identifiable meniscus and the lateral compartment. Extensor mechanism: Distal quadriceps tendon and patellar tendons are intact. Fluid and soft tissue: There is a small amount of fluid in the suprapatellar bursa and also in the ma in compartments of the knee. There is thickening of the synovium with a small amount of increased patrick ma in the soft tissues surrounding the knee. Moderate-sized Jerez's cyst extends over length of at le ast 5 cm. The newman of the cyst are thickened and irregular. Osseous and articular structures: Patellofemoral compartment: Moderate to severe arthropathy with loss of cartilage. No marrow signal a bnormalities. Medial compartment: Severe narrowing of the medial compartment. Complete loss of cartilage with osteo phytes and subchondral edema. No fractures. Lateral compartment: Severe narrowing of the joint space with loss of cartilage. Hypertrophic osteoph ytes from the joint line. MR/MR knee RT wo/w con [id number] IMPRESSION: 1. Cannot exclude septic joint without IV contrast. 2. There is a small amount of fluid in the suprapatellar bursa and also within the medial and lateral compartments with subcutaneous edema. Thickening of the synovium. This may be of benign reactive response or infectious. 3. Moderate-sized complex Jerez's cyst. 4. 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 5. Chronic ACL tear. 6. Partial tear MCL. 7. Completely torn obliterated menisci the lateral compartment.
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
[2021-01-27] MEDS: piperacillin-tazobactam 3.375 GM in sodium chloride 0.9% (plus) 50 ML IV ×2 (11:38→17:42)
--- NOTE | 2021-01-27 11:55 | PC.NURSE ---
pt to ultrasound by wheelchair with tech
[2021-01-27 12:03] LABS: Lactate (Lactic Acid level) 1.4 mmol/L (0.5-2.2)
[2021-01-27] MEDS: lidocaine 1% 5 ML in potassium chloride premix 100 ML 50 ML IV (13:04)
[2021-01-27 14:26] LABS: Add Urine Microscopic? YES; Bilirubin Urine Neg (Negative); Blood Urine 2+ (Negative); Glucose Urine UA Norm (Normal); Ketones Urine Negative (Negative); Leukocyte Esterase Urine Negative (Negative); Nitrate Urine Negative (Negative); Protein Urine Neg (Negative); Specific Gravity, Urine 1.005 (1.005-1.030); Urine Appearance Clear (CLEAR); Urine Color Yellow (Yellow); Urobilinogen Urine Norm (Negative); pH Urine 7 (5-7)
[2021-01-27 14:28] LABS: Add Urine Culture? No; Bacteria Urine TRACE /hpf; RBC Urine 0-4 /hpf (0-2); Squamous Epithelial Cell Urine 0-4 /hpf (0-5)
[2021-01-27 15:22] VITALS: BP 146/72; PULSE 72; RESP 16; TEMP 37.2; O2SAT 91
--- NOTE | 2021-01-27 16:01 | PC.NURSE ---
pt refuses to wear SCD's and they are not indicated as pt is covered for VTE with her lovenox injections
[2021-01-27] MEDS: enoxaparin 40 mg/0.4 mL Syringe SUBCUT (17:42)
--- NOTE | 2021-01-27 18:00 | PC.NURSE ---
pt to MRI by ambulance
[2021-01-27 20:00] VITALS: BP 155/77; PULSE 73; RESP 17; TEMP 37.4; O2SAT 91
[2021-01-28] VITALS: BP 156/83; PULSE 89; RESP 17; TEMP 38.2; O2SAT 93
[2021-01-28] MEDS: piperacillin-tazobactam 3.375 GM in sodium chloride 0.9% (plus) 50 ML IV ×3 (03:28→18:14)
[2021-01-28 04:00] VITALS: BP 156/80; PULSE 81; RESP 17; TEMP 37.1; O2SAT 93
[2021-01-28] MEDS: famotidine 20 mg/2 mL INJ IVP (04:29)
[2021-01-28 05:59] LABS: Basophils # 0.1 10^3/uL (0.0-0.1); Basophils % 0.4 %; Eosinophils % 0.2 %; Hematocrit 39.2 % (37.0-47.0); Hemoglobin 12.6 g/dL (11.5-15.3); Lymphocytes # 1.6 10^3/uL (0.8-4.8); Mean Corpuscular HGB Conc 32.1 g/dL (30.0-36.0); Mean Corpuscular Hemoglobin 29.8 pg (28.0-34.0); Mean Corpuscular Volume 92.7 fL (81-99); Mean Platelet Volume 10.7 fL (7.4-10.4); Monocytes # 1.4 10^3/uL (0.2-0.9); Monocytes % 9.6 %; Neutrophils # 11.29 10^3/uL (1.8-7.7); Neutrophils % 78.1 %; Nucleated Red Blood Cells % 0 %; Platelet Count 203 10^3/cmm (130-400); Red Blood Count 4.23 10^6/uL (4.1-5.3); Red Cell Distribution Width 12.6 % (12.1-15.1); White Blood Count 14.5 10^3/uL (4.0-10.0)
[2021-01-28 06:29] LABS: Alanine Aminotransferase 8 U/L (0-33); Albumin Level 3.3 g/dL (3.5-5.2); Alkaline Phosphatase 90 IU/L (35-105); Anion Gap 11.8 (5-19); Aspartate Amino Transferase 13 U/L (0-32); Blood Urea Nitrogen 7 mg/dL (8-23); Calcium 8.7 mg/dL (8.5-10.5); Carbon Dioxide 27 mmol/L (22-29); Chloride 99 mmol/L (98-107); Globulin 3.4 g/dL (1.3-4.6); Glucose 91 mg/dL (65-115); Lipase 58 U/L (13-60); Osmolality Calculated 278 mOsm/kg (285-295); Sodium 135 mmol/L (136-145); Total Bilirubin 1.3 mg/dL (0.15-1.2); Total Protein 6.7 g/dL (6.6-8.7)
[2021-01-28 06:57] LABS: Potassium 2.8 mmol/L (3.5-5.1)
[2021-01-28 07:15] VITALS: BP 134/75; PULSE 81; RESP 19; TEMP 37.4; O2SAT 96
[2021-01-28 08:27] LABS: Magnesium 1.8 mg/dL (1.7-2.3)
[2021-01-28] MEDS: potassium chloride ER 20 mEq Tablet 40 MEQ PO (09:02)
[2021-01-28] MEDS: polyethylene glycol 3350 Pkt 17 gm PO (09:03)
--- NOTE | 2021-01-28 10:10 | PC.SOCIAL ---
Pg 2 IMM Explained to pt Pg 2 IMM. No questions voiced. Provided pt a copy. Signed, dated, & timed a copy & placed in chart.
[2021-01-28 11:13] VITALS: BP 147/80; PULSE 76; RESP 17; TEMP 36.8; O2SAT 93
--- NOTE | 2021-01-28 11:53 | MR_ITS ---
WS: [id number] MRI right knee pre and postcontrast. HISTORY: Follow-up for possible septic joint. Precontrast T1 fat saturated sequences and T2 sequences performed. Postcontrast sequences in 3 planes . Study is read in conjunction with the noncontrast study from 01/27/2021. There is mild diffuse synovial enhancement and synovial thickening. There is only a small amount of f luid in the joint space. Lobulated fluid with peripheral soft tissue enhancement measures 2.0 x 0.6 c m in the lateral patellofemoral joint space. There is also enhancement of the periphery of the Jerez' s cyst.
--- NOTE | 2021-01-28 15:12 | PC.NURSE ---
At 1445 patient left the floor with EMS staff for MRI.
--- NOTE | 2021-01-28 15:25 | PC.NURSE ---
patient returned from MRI at this time.
[2021-01-28 16:00] VITALS: BP 156/84; PULSE 80; RESP 18; TEMP 37.2; O2SAT 94
[2021-01-28] MEDS: enoxaparin 40 mg/0.4 mL Syringe SUBCUT (17:49)
[2021-01-28] MEDS: famotidine 20 mg Tablet PO (17:49)
[2021-01-28 19:28] VITALS: BP 144/67; PULSE 81; RESP 18; TEMP 38.2; O2SAT 93
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
[2021-01-28] MEDS: magnesium sulfate premix 2 GM/50 ML PIGGYBACK IV (22:10)
[2021-01-29] VITALS: BP 139/74; PULSE 79; RESP 17; TEMP 36.9; O2SAT 92
[2021-01-29] MEDS: piperacillin-tazobactam 3.375 GM in sodium chloride 0.9% (plus) 50 ML IV ×3 (03:26→17:35)
[2021-01-29 04:00] VITALS: BP 120/72; PULSE 82; RESP 18; TEMP 37.2; O2SAT 94
[2021-01-29 05:53] LABS: Basophils % 0.3 %; Eosinophils # 0.1 10^3/uL (0.0-0.8); Eosinophils % 0.9 %; Hematocrit 38.6 % (37.0-47.0); Hemoglobin 12.7 g/dL (11.5-15.3); Lymphocytes # 1.5 10^3/uL (0.8-4.8); Lymphocytes % 12.8 %; Mean Corpuscular HGB Conc 32.9 g/dL (30.0-36.0); Mean Corpuscular Hemoglobin 30.4 pg (28.0-34.0); Mean Corpuscular Volume 92.3 fL (81-99); Mean Platelet Volume 10.3 fL (7.4-10.4); Monocytes # 1.2 10^3/uL (0.2-0.9); Monocytes % 10.5 %; Neutrophils % 74.7 %; Nucleated Red Blood Cells % 0 %; Platelet Count 227 10^3/cmm (130-400); Red Blood Count 4.18 10^6/uL (4.1-5.3); Red Cell Distribution Width 12.5 % (12.1-15.1); White Blood Count 11.7 10^3/uL (4.0-10.0)
[2021-01-29 06:16] LABS: Alanine Aminotransferase 12 U/L (0-33); Alkaline Phosphatase 61 IU/L (35-105); Aspartate Amino Transferase 17 U/L (0-32); Blood Urea Nitrogen 8 mg/dL (8-23); Calcium 8.2 mg/dL (8.5-10.5); Carbon Dioxide 26 mmol/L (22-29); Chloride 100 mmol/L (98-107); Globulin 3.3 g/dL (1.3-4.6); Glucose 88 mg/dL (65-115); Lipase 46 U/L (13-60); Osmolality Calculated 282 mOsm/kg (285-295); Sodium 137 mmol/L (136-145); Total Bilirubin 1.2 mg/dL (0.15-1.2); Total Protein 6.3 g/dL (6.6-8.7)
[2021-01-29 07:03] VITALS: BP 130/65; PULSE 68; RESP 18; TEMP 37.2; O2SAT 92
[2021-01-29] MEDS: polyethylene glycol 3350 Pkt 17 gm PO (07:39)
[2021-01-29] MEDS: famotidine 20 mg Tablet PO ×2 (07:39→17:35)
[2021-01-29] MEDS: potassium chloride ER 20 mEq Tablet 40 MEQ PO (09:04)
[2021-01-29 10:58] VITALS: BP 150/79; PULSE 84; RESP 17; TEMP 37.2; O2SAT 98
--- NOTE | 2021-01-29 12:13 | PC.CHAP ---
Pastoral Care Encounter/Spiritual Assessment Type of Contact [] Declined milk route deliverer visit [] Patient/Family/Request visit [] Outpatient visit [] Follow-up visit [] Physician referral [] Code/Alert [X] Routine visit [] Staff referral [] Actively dying [] Patient sleeping [] Family support [] [] Out of room [] Palliative care [] [] Receiving care in room [] Pre-surgical visit [] Trauma [] Long length of stay [] ICU visit [] Other: Relational/Emotional Strength [X] Patient feels connected with others/family/visitors/staff [] Distress [] Loneliness/isolation [] Abandonment Spirituality of Patient [X] Person of Brittney [] Attends Denominational of their Brittney [] Believes in Prayer [] Reads Bible or Spiritism materials [] There are Spiritual issues to be addressed Senior Environmental Consultant Interventions [X] Prayer [x] Active listening [x] Non-anxious presence [x] Spiritual/emotional support [] Crisis/trauma care [] Spiritual counseling [] Bereavement support [] Provided bereavement packet [] Provided Bible/devotional materials [] Provided toy/stuffed animal, coloring book to patient or family member [] Provided Communion [] Anointing/[place] [] Salvation [x] Completed spiritual assessment [] Other: Impact on Illness or Injury [] Angry [] Fearful [] Anxious [] Often cries [] Exhaustion [] Unable to work [] Unable to attend gnosticism [] Unable to walk/stand [] Unable to read [] Unable to drive [] Unable to eat/drink [] Unable to sleep [] Unable to be with family [] Patient intubated [] Other: Summary SO was present for visit. Pt was upbeat and happy, feels like her life is blessed. Prayers offered and received. Time spent with patient 5m
--- NOTE | 2021-01-29 15:00 | P.CONIM_ITS ---
Providers/Reason For Consult Consulting Physican/Specialty*: Dr. Concetta Bower - Orthopedics Reason for Consult*: Right knee pain and possible septic joint Requesting Physcian: Kyle Pascal Attending Physician: Kyle Pascal Primary Care Provider: Eyal Acevedo MD History of Present Illness History of Present Illness Kevin Galeana is a 75 year old female who presented at the time of admission with pancreatitis. She was admitted and treated for this, and her pancreatitis symptoms have resolved. She continued, however, to have a high white count and fevers with unexplained source of the fevers. I was consulted by the medical team to evaluate her knee for a possible septic joint. Of note, the patient had injections to this knee for postoperative pain relief 1 day prior to the onset of her pancreatitis. Her onset of pancreatitis was January 25 with the injections being January 24. Prior to consultation with me, the patient had had an MRI of her knee and this was available for review. X-rays were also available for review. I personally reviewed the studies. Review of Systems General: Reports: 10 or more systems reviewed and unremarkable except in HPI and below Narrative: The patient did have COVID on August 01. Const: Reports: fever(s) and chills Eyes: Denies: photophobia Card: Denies: chest pain or dyspnea on exertion Resp: Denies: dyspnea or productive cough GI: Reports: nausea (Poor appetite) and other (History of gallstones) Musc: Denies: joint warmth Skin/Breast: Denies: erythema or changes in skin color Neuro: Denies: numbness in extremities Psych: Denies: anxiety or depression Darshan/Lymph: Denies: easy bruising or easy bleeding All/Imm: Denies: acute wheezing Meds/Allergies Home Medications and Allergies Home Medications Medication Instructions Recorded Confirmed Last Taken Type cetirizine 5 mg PO DAILY PRN 08/15/20 01/25/21 01/24/21 History Protonix 1 tab PO DAILY@92908/16/20 01/25/21 01/24/21 History vitamin B complex 1 tab PO DAILY@30 08/16/20 01/25/21 01/24/21 History Vitamin D3 1 tab PO DAILY@92901/25/21 01/25/21 01/24/21 History multivitamin with minerals 1 tab PO DAILY@30 01/25/21 01/25/21 01/24/21 History [Hair,Skin and Nails] polyethylene glycol 3350 [Miralax] 17 g PO DAILY@0930 01/25/21 01/25/21 01/24/21 History Allergies Allergy/AdvReac Type Severity Reaction Status Date / Time morphine Allergy ADR-Nausea Verified 01/25/21 11:25 Current Medications Current Medications Generic Name Dose Route Start Last Admin Trade Name Freq PRN Reason Stop Dose Admin Enoxaparin Sodium 40 mg 01/25/21 17:00 01/28/21 17:49 Enoxaparin 40 Mg/0.4 Ml Syringe SUBCUT 40 mg Q24H TASIA Administration Famotidine 20 mg 01/28/21 18:00 01/29/21 07:39 Famotidine 20 Mg Tablet PO 20 mg BID TASIA Administration Hydromorphone HCl 0.2 mg 01/25/21 16:22 01/26/21 18:12 Hydromorphone 1 Mg/Ml Inj 1 Ml IVP 0.2 mg Q2H PRN Administration PAIN Piperacillin Sod/Tazobactam 50 mls @ 12.5 mls/hr 01/27/21 11:00 01/29/21 12:02 Sod 3.375 gm/ Sodium Chloride IV 12.5 mls/hr Q8H TASIA Administration Protocol Ondansetron HCl 4 mg 01/25/21 15:39 01/27/21 06:08 Ondansetron 2 Mg/Ml Sdv 2 Ml IVP 4 mg Q6H PRN Administration NAUSEA AND VOMITING Polyethylene Glycol 17 gm 01/28/21 09:30 01/29/21 07:39 Polyethylene Glycol 3350 Pkt 17 Gm PO 17 gm DAILY@0930 TASIA Administration PFSH Acute PFSH: Medical History Allergic rhinitis History of pancreatitis Surgical History History of knee surgery Family History Other CAD (coronary artery disease) Dementia Social History Smoking and tobacco status: never smoked Alcohol intake: never Female Reproductive History: Date of last menstrual period: 08/15/00 Vitals/I&O/Wt Last Vital Signs Temp 99.0 F 01/29/21 10:58 Pulse 84 01/29/21 10:58 Resp 17 01/29/21 10:58 BP 150/79 01/29/21 10:58 Pulse Ox 98 01/29/21 10:58 01/29/21 01/29/21 01/29/21 06:59 14:59 22:59 Intake Total 50 / 1170 530 / 530 Balance 50 / 1170 530 / 530 Physical Exam Const: COMMON NORMALS: no acute distress, average body habitus, patient oriented x3 and alert GENERAL APPEARANCE: cooperative and comfortable ORIENTATION/CONSCIOUSNESS: Yes awake HENMT: COMMON NORMALS: normocephalic and atraumatic HEAD & SCALP: normocephalic and atraumatic Eye: GENERAL EYE: appearance normal, both eyes and all related structures Chest: COMMONS NORMALS: normal inspection of the chest Resp: COMMON NORMALS: normal respiratory effort EFFORT & INSPECTION: Yes able to speak in complete sentences and Yes symmetric chest movement Extremity: RIGHT LOWER EXTREMITY: Yes knee joint (No effusion or erythema about the knee) Right knee: Yes inspection (No significant finding aside from ecchymosis at injection site), Yes palpation (Minimal to no tenderness to palpation), Yes ROM (0 to 130 degrees) and Yes neurovascular exam (Intact distally with no evidence of DVT) Neuro: COMMON NORMALS: patient oriented x3 SENSORIUM/ORIENTATION: Yes alert Psych: COMMON NORMALS: mental status grossly normal APPEARANCE: Yes grossly normal ATTITUDE: Yes calm and Yes engaged ATTENTION/CONCENTRATION: Yes attention grossly intact Skin: COMMON NORMALS: no rashes or lesions noted GENERAL SKIN EXAM: no rashes or lesions noted Data Micro: Micro: Microbiology 01/29/21 11:42 Blood Culture - Pr eliminary Blood SPECIMEN [facility] 01/29/21 11:40 Blood Culture - Pr eliminary Blood SPECIMEN [facility] 01/27/21 11:50 Blood Culture - Pr eliminary Blood SPECIMEN [facility] 01/27/21 11:02 Blood Culture - Pr eliminary Blood NEGATIVE TO AGUSTINA E Imaging^: Xray Ortho: I personally reviewed and interpreted this imaging study as follows: My impression: X-rays demonstrate significant osteoarthritis of the knee primarily involving the lateral compartment. There is valgus deformity as well. There is no evidence of significant soft tissue swelling. There is no evidence of acute fracture or dislocation. MRI: I personally reviewed and interpreted this imaging study as follows: My impression: There is minimal effusion within the knee joint. There is no evidence of fracture. The synovium is minimally thickened. 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 There was noted to be enhancement of the periphery of the Jerez's cyst, but this is not of significant concern. A&P Assessment and plan (1) Primary osteoarthritis of right knee: Patient is scheduled for total knee arthroplasty in [place]. She presented with pancreatitis, and subsequently, had elevated white count and medical issues concerning for sepsis. There was no obvious source for her sepsis, and therefore, I was asked to evaluate for the knee as the patient had had recent multiple injections preoperatively. Upon my evaluation, the knee is benign. She has range of motion from 0 to 130 degrees. There is minimal to no palpable effusion. There is no evidence of infection. The knee is of equal warmth to the opposite knee. The patient has a osteoarthritic knee for which she is prepared to have total knee arthroplasty, but there is no evidence of acute findings such as septic knee. Status: Acute (2) Sepsis: Secondary to ongoing laboratory changes, there was concern of sepsis. I was asked to evaluate the knee with regard to possible source. Status: Acute Consult Attestations Medical Necessity Statement: Per medical service Coding Level of Care Code Acute Clinical Education Assistant for [facility] Fwd Exam Comprehensive Diagnoses Primary osteoarthritis of right knee M17.11 Sepsis A41.9
[2021-01-29 15:22] VITALS: BP 136/81; PULSE 81; RESP 18; TEMP 37.3; O2SAT 96
[2021-01-29 17:01] LABS: Bilirubin Urine Neg (Negative); Blood Urine 2+ (Negative); Glucose Urine UA Norm (Normal); Ketones Urine Negative (Negative); Leukocyte Esterase Urine Negative (Negative); Nitrate Urine Negative (Negative); Protein Urine Neg (Negative); Specific Gravity, Urine 1.005 (1.005-1.030); Sulfosalicylic Acid Urine Negative (Negative); Urine Appearance Clear (CLEAR); Urine Color Yellow (Yellow); Urobilinogen Urine 4 mg/dL (Negative); pH Urine 8 (5-7)
[2021-01-29 17:02] LABS: Add Urine Microscopic? YES; RBC Urine 0-4 /hpf (0-2); WBC Urine RARE /hpf (0-5)
[2021-01-29 17:03] LABS: Add Urine Culture? No; Squamous Epithelial Cell Urine RARE /hpf (0-5)
[2021-01-29] MEDS: enoxaparin 40 mg/0.4 mL Syringe SUBCUT (17:35)
[2021-01-29 20:00] VITALS: BP 121/76; PULSE 83; RESP 17; TEMP 38.2; O2SAT 93
--- NOTE | 2021-01-29 20:05 | PM.PN ---
Subjective Subjective: Interval history: Today so far she has been doing well. So far no further fever since last night. Abdominal symptoms continue to resolve. She is wanting to advance to GI soft diet trial. No vomiting or diarrhea. Denies new symptoms. Does not have shortness of breath or cough. No new rash. Denies changes in her right lower extremity. Vitals/I&O/Wt Last Vital Signs Temp 99.1 F 01/29/21 15:22 Pulse 81 01/29/21 15:22 Resp 18 01/29/21 15:22 BP 136/81 01/29/21 15:22 Pulse Ox 96 01/29/21 15:22 01/29/21 01/29/21 01/29/21 06:59 14:59 22:59 Intake Total 50 / 1170 530 / 530 170 / 700 Balance 50 / 1170 530 / 530 170 / 700 Physical Exam Const: COMMON NORMALS: no acute distress, patient oriented x3 and alert GENERAL APPEARANCE: cooperative and comfortable ORIENTATION/CONSCIOUSNESS: Yes awake HENMT: COMMON NORMALS: oropharynx normal Neck/C-Spine: COMMON NORMALS: no JVD Resp: COMMON NORMALS: normal respiratory effort and clear to auscultation bilaterally AUSCULTATION: clear to auscultation bilaterally Cardio: COMMON NORMALS: no JVD, regular rhythm, S1 normal heart sound present, S2 normal heart sound present and No murmurs present (Cardio) RHYTHM: regular rhythm HEART SOUNDS: S1 normal heart sound present and S2 normal heart sound present GI: COMMON NORMALS: Normal to inspection, nondistended, normoactive bowel sounds present, Soft to palpation and non-tender PALPATION: Yes Soft to palpation OTHER: Minimal if any tenderness. Extremity: COMMON NORMALS: no joint enlargement and no pedal edema OTHER: No changes in the knee. No new erythema or warmth. Neuro: COMMON NORMALS: patient oriented x3 and moves all extremities SENSORIUM/ORIENTATION: Yes alert Skin: COMMON NORMALS: no rashes or lesions noted GENERAL SKIN EXAM: no rashes or lesions noted Data : 01/29/21 05:40 01/29/21 05:40 Micro: Microbiology 01/27/21 11:50 Blood Culture - Preliminary Blood NEGATIVE TO DATE 01/29/21 11:42 Blood Culture - Preliminary Blood SPECIMEN COLLECTED 01/29/21 11:40 Blood Culture - Preliminary Blood SPECIMEN COLLECTED A&P Assessment and plan (1) Sepsis: Status: Acute (2) Knee swelling: Status: Acute (3) Acute pancreatitis: Status: Acute (4) Gastritis: Status: Acute Sepsis: It does not appear at this time that the fluid collection is currently accessible after discussion with orthopedics, radiology. She does not have symptoms of joint infection. Fluid collection is also very small. Discussed also with her orthopedic surgeon Dr. De La Cruz. Since she continues to improve, and is interested in discharging from the hospital. Overall consensus per discussion with specialists as well as with her is to continue with empiric coverage with oral antibiotic, with outpatient follow-up with regards to the condition of her knee with the coding support specialist in [place]. Additional consideration given to intra-abdominal process with new perinephric stranding. Urinalysis again repeated today. We are also repeating blood culture. In case she remains afebrile, with continued improvement in leukocytosis, and no further issues, she would like to discharge home, and will tentatively plan to do so tomorrow unless there are further issues. Her son is in agreement with the plan and will be keeping a close eye on her after discharge. She knows to seek medical attention in case of any concerning symptoms. She understands that we have not 100% ruled out occult infection, possibly in the knee joint, although likelihood of this appears to be rather small. Right lower extremity duplex negative for VTE. Ileus: Resolving. Tolerating clear liquid diet. Would like a trial of GI soft diet which is ordered. Recurrent ileus episodes in the past. Continue bowel regimen. Abdominal tenderness: Resolving. Improving pancreatitis. Acute Pancreatitis: Resolving pancreatitis. Lipase down to normal. Abdominal tenderness resolving. Hypokalemia: replace. Hx of COVID Pneumonia Gastritis - Pepcid 20 mg IV BID DVT pox - Lovenox 40 mg SQ daily Disposition: - Plan to return to home once stable for discharge. Attestations Medical Necessity Statement*: Continue admission for assessment management of resolving sepsis, disposition planning. Coding Level of Care Code Acute Mechanic'S Assistant for [facility] Diagnoses Sepsis A41.9 Knee swelling M25.469 Acute pancreatitis K85.90 Gastritis K29.70
--- NOTE | 2021-01-29 20:36 | USCV_ITS ---
Kervin Seymourkatie Age: 75 Gender: F : 1945 Exam Date: 01/29/2021 06:32 Ordering Phys: Kyle Pascal MD Technologist: Ada Vigil [place] [facility] [place] RLE Swelling HISTORY: Lower extremity swelling. PROCEDURES: Venous duplex imaging was performed in only the right lower extremity. The following venous structures were evaluated: common femoral vein, profunda vein, proximal portion of the greater saphenous vein, superficial femoral vein, and the popliteal vein. In addition, the posterior tibial and peroneal trunk were evaluated. FINDINGS: Normal 2-D Doppler and augmentation and compressibility throughout the lower extremity venous structures. Additional imaging through the proximal calf veins also reveals no thrombus. Limited evaluation of the greater saphenous vein is patent with no thrombus. CONCLUSIONS No DVT right lower extremity. Dr. Nallely Webster DO (Electronically Signed) Final Date: 29 January 2021 08:11 S
[2021-01-30] VITALS (7 sets, daily range): BP systolic 97–137; BP diastolic 62–84; PULSE 79–94; RESP 17–18; TEMP 36.7–37.6; O2SAT 92–95
[2021-01-30] MEDS: piperacillin-tazobactam 3.375 GM in sodium chloride 0.9% (plus) 50 ML IV ×2 (03:21→12:13)
[2021-01-30 06:17] LABS: Basophils % 0.4 %; Eosinophils # 0.2 10^3/uL (0.0-0.8); Eosinophils % 1.9 %; Hematocrit 38.3 % (37.0-47.0); Hemoglobin 12.5 g/dL (11.5-15.3); Lymphocytes # 1.7 10^3/uL (0.8-4.8); Lymphocytes % 18.1 %; Mean Corpuscular HGB Conc 32.6 g/dL (30.0-36.0); Mean Corpuscular Hemoglobin 29.8 pg (28.0-34.0); Mean Corpuscular Volume 91.2 fL (81-99); Mean Platelet Volume 10.5 fL (7.4-10.4); Monocytes # 1.2 10^3/uL (0.2-0.9); Monocytes % 12.5 %; Neutrophils # 6.25 10^3/uL (1.8-7.7); Nucleated Red Blood Cells % 0 %; Platelet Count 258 10^3/cmm (130-400); Red Cell Distribution Width 12.5 % (12.1-15.1); White Blood Count 9.5 10^3/uL (4.0-10.0)
[2021-01-30 06:43] LABS: Alanine Aminotransferase 19 U/L (0-33); Albumin Level 3.3 g/dL (3.5-5.2); Alkaline Phosphatase 71 IU/L (35-105); Anion Gap 12.9 (5-19); Aspartate Amino Transferase 20 U/L (0-32); Blood Urea Nitrogen 10 mg/dL (8-23); Calcium 8.7 mg/dL (8.5-10.5); Carbon Dioxide 27 mmol/L (22-29); Chloride 100 mmol/L (98-107); Globulin 3.4 g/dL (1.3-4.6); Glucose 103 mg/dL (65-115); Osmolality Calculated 283 mOsm/kg (285-295); Sodium 137 mmol/L (136-145); Total Bilirubin 0.9 mg/dL (0.15-1.2); Total Protein 6.7 g/dL (6.6-8.7)
[2021-01-30 06:59] LABS: Potassium 2.9 mmol/L (3.5-5.1)
[2021-01-30] MEDS: famotidine 20 mg Tablet PO ×2 (09:05→17:29)
[2021-01-30] MEDS: potassium chloride ER 20 mEq Tablet 40 MEQ PO (09:05)
[2021-01-30] MEDS: polyethylene glycol 3350 Pkt 17 gm PO (09:05)
--- NOTE | 2021-01-30 11:40 | PC.SOCIAL ---
IMM Update Pg. 2 of IMM updated and reviewed with patient who verbalized understanding. Copy provided.
--- NOTE | 2021-01-30 11:57 | CT_ITS ---
WS: [id number] CT ABDOMEN AND PELVIS WITH CONTRAST HISTORY: recurrent fever, recent hepatitis, possible pyelonephritis. TECHNIQUE: Imaging performed of the abdomen and pelvis with IV contrast. Single phase imaging of the abdomen. Coronal and sagittal reformats are submitted. All CT scans at [facility] use at least one of these dose optimization techniques: automated exposure control; mA and/or kV adjustment per patient size (includes targeted exams where dose is matched to clinical indication); or iterativ e reconstruction. IV CONTRAST: Omnipaque 300; 95 mL IV. Oral contrast: No DLP: 1538.51 mGy.cm COMPARISON: 01/27/2021 and 01/25/2021 Lower thorax: Lung bases are slightly hyperinflated. Small bilateral pleural effusions have slightly decreased in size. Mild enlargement of the heart. Small hiatal hernia. Liver/biliary system: Normal size liver with a few scattered hypodensities which are probably cysts b ut really too small to characterize. Small hepatic granulomata. Portal vein is patent. No bile duct d ilatation. Gallbladder: Gallbladder is slightly contracted. There are small known stones within the gallbladder. No adjacent fluid. Pancreas: Pancreas is edematous and mildly heterogeneous. There is still a small amount of edema surr ounding the pancreas. There is a subtle area of nonenhancement within the body of the pancreas which may be an area of necrosis. There are several residual ill-defined fluid collections adjacent to the pancreatic body and also along the fourth portion of the duodenum. The collection along the fourth po rtion of the duodenum is slightly deformed measuring 3.1 x 1.0 cm. Developing pseudocyst should be co nsidered as a possible etiology. This would not be accessible for drainage. No bile duct dilatation o r pancreatic hemorrhage. Spleen: Granulomata. Normal size. Adrenal glands: Normal. Right kidney: Improved perinephric stranding as compared to the prior study. No obstruction. Left kidney: Improved perinephric stranding as compared to the prior study. No obstruction. Aorta: Mild atherosclerosis with no aneurysm. Lymphadenopathy: None. Free fluid: Peripancreatic fluid. GI tract: There is marked gaseous distention of the colon. No wall thickening but there is significan t dilatation of the transverse colon and even the stomach with air. No free air is identified. Abdominal wall: Unremarkable abdominal wall. No hernia. Pelvis: No adenopathy or free fluid. Uterus is atrophic. Bones: L4 anterolisthesis by 8 mm. Prior LEFT hip ORIF. CT/CT abdomen pelvis w con* [id number] IMPRESSION: 1. Persistent but improved changes of acute pancreatitis. There are still flui d collections around the pancreas. Some of these are becoming slightly more dev eloped suggesting these could be developing pseudocyst. There is also an area o f decreased attenuation and decreased enhancement within the body of the pancre as. This could been interbody pancreatic pseudocyst or area of pancreatic necro sis. No hemorrhage. At this time there is no drainable collection. Also signifi cant improvement since 01/25/2021. Recommend continued CT follow-up to be sure t hese collections resolving pancreatitis improves. Suggest follow-up in 4-6 week s. 2. No residual perinephric stranding. No renal obstruction. 3. Marked dilatation of the colon with air, most significant involving the asc ending and transverse colon which is probably an ileus. 4. Small but slightly improved bilateral pleural effusions.
[2021-01-30] MEDS: iohexol 300 mg/mL 100 mL Btl IV (15:41)
[2021-01-30] MEDS: enoxaparin 40 mg/0.4 mL Syringe SUBCUT (17:29)
--- NOTE | 2021-01-30 20:46 | PC.NURSE ---
PT educated on discharge instructions, new medications, and follow up appointments, PT escorted by nurse off the floor with all personal belingings and discharge packet to the surgery entrance via wheelchair at 2039. PT assisted into daughters vehicle by nurse and PT left hospital grounds.
--- NOTE | 2021-01-30 23:40 | PM.DCS ---
Discharge Providers Date of Admission: 01/25/21 13:49 Date of Discharge: January 30, 2021 Attending Provider at Admission: Alysa Wei Attending Provider at Discharge: Kyle Pascal Primary Care Provider: Eyal Acevedo MD Diagnoses at Discharge Discharge Diagnosis (1) Sepsis: Status: Acute (2) Knee swelling: Status: Acute (3) Acute pancreatitis: Status: Acute (4) Gastritis: Status: Acute Reason for Visit Reason for Visit: abdomen pain Hospital Course Hospital Course Very pleasant 75-year-old lady with history of pancreatitis, cholelithiasis, following with gastroenterology in [place], recurrent ileus, right knee end-stage osteoarthritis with preparations for TKA, 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 CT abdomen pelvis showing acute pancreatitis. Normal appearing gallbladder without ductal dilation. Chest x-ray without acute findings. She was initiated on supportive care with IV hydration, bowel rest, pain control, nausea control, electrolyte supplementation for hypokalemia, Pepcid for possible gastritis. Initially with slow to improve abdominal pain, but with persistently improving lipase down to [id number]. However, hospital course complicated by sepsis with continued rise in leukocytosis, 16.9-18.9 on 01/27, and with noted low-grade fevers 100 point 3, febrile through the night 01/26-01/27 with recurrence of fever in the evening of 01/27. Empirically started on Zosyn due to concern for intra-abdominal infection. CT abdomen pelvis repeated. Due to history of gallstones also obtained hepatobiliary ultrasound. CT showed overall increased mesenteric edema and anasarca. IV fluids were discontinued. Noted new small bilateral pleural effusions. Changes of acute pancreatitis with no abscess. Cholelithiasis with no bile duct dilation. Noted perinephric stranding around each kidney without obstruction consideration of possible pyelonephritis. Constipation. At that time she was having also symptoms of again recurrence of ileus. Was kept on bowel rest. Was having nausea, but no vomiting. Some persistence of central abdominal pain. Both gradually improved and now resolved. Abdominal ultrasound without acute cholecystitis. Noted cholelithiasis. No CBD dilation. Pancreas not visualized. Chest x-ray was repeated and was unremarkable. UA was repeated with 0-4 WBC, not impressive for urinary tract infection. She had no symptoms. As at that time and also came to light she had soft tissue needling above and below the knee for nerve freezing as part of the Iovera procedure in preparation for TKA, additional imaging of the knee were obtained due to lack of other credible source of sepsis. Blood cultures were obtained. Knee MRI was obtained with and without contrast. This showed finding of mild diffuse synovial enhancement and synovial thickening. Small amount of fluid in the joint space. Lobulated fluid with peripheral soft tissue enhancement measuring 2 x 0.6 cm in the lateral patellofemoral joint space. Also noted enhancement of the periphery of the moderately complex Jerez's cyst. She was assessed by orthopedics. Results also discussed with radiology. It was determined there was not enough fluid to be able to access for a sample. Findings also discussed with her orthopedic surgeon in [place]. Overall consensus appears that joint infection likelihood is very low given lack of clinical symptoms, very low risk procedure, lack of convincing evidence of imaging. Blood culture so far remains negative. Discussed with her and her son, and we also discussed that infection is not 100% excluded. This is probably much less likely, but vigilance will need to be exercised in case of any lack of resolution of fever, or any worsening condition of her joint with transition to oral antibiotics. We discussed risks of recurrence of infection, systemic spread of infection, septic embolization to other sites, risks of recurrence of sepsis, disability and , notes underlying importance of seeking medical attention in case there is any concerning change in condition and avoidance of procedures or medications which may exacerbate the risk of infection. Her condition overall gradually continue to improve. Right lower extremity venous duplex was negative for VTE. We discussed that she appears to be responding to Zosyn. Without convincing source of infection, and with recurrence of low-grade fever, although at less frequent intervals and with resolution of leukocytosis, resolution of sepsis, and vital signs remained stable, we did assess additionally by CT abdomen pelvis with contrast as she was wanting to return home with set up of outpatient follow-up, and this appears to show perhaps a more likely source of her fever. On the repeat contrast CT today noted to have persistent but improved changes of acute pancreatitis, still fluid collections around the pancreas, some becoming slightly more developed suggesting this could be developing pseudocyst. Also noted in the area of decreased attenuation and decreased enhancement within the body of the pancreas. This could possibly represent interbody pancreatic pseudocyst or area of pancreatic necrosis. No hemorrhage. At this time no drainable collection. Also significant improvement since 01/25/2021. With follow-up imaging recommended in 4-6 weeks. No residual perinephric stranding. Marked dilation of colon with air. Today she also noted having some diarrhea, although states this is not unusual for her after episodes of pancreatitis. We additionally assessed stool studies for C. difficile which were negative. Occult blood was negative. Stool culture and ova and parasites are pending. We discussed risks of pancreatitis with necrosis and infection. Does not appear that there is an area currently that could be targeted for microbial sample. Her condition continues to improve with resolution of most symptoms, normalization of lipase, resolution abdominal pain, and with tolerating oral intake, with improving fevers, resolution of leukocytosis, there is no need for debridement or necrosectomy. We discussed risks of recurrence/progression infection with transition to oral antibiotics. We discussed we discussed that rather low likelihood of systemic spread of infection given suspect infection of area of pancreatic necrosis, although likelihood that this has spread and is also causing the findings in her knee should probably be low. We discussed the risks of transition to oral therapy with ciprofloxacin and Flagyl. She will complete the course of additional 7 days. She will be staying with her son, and states she will be vigilant as to any worsening of her condition, seeking medical attention in case of any concerning changes. She is asked to follow-up with her desk pen set assembler at soonest available appointment given again recurrence of pancreatitis, consideration of additional evaluation for underlying etiologies. Of note although no obstruction noted on CT or ultrasonography, and gallstone pancreatitis with a currently obstructed stone is not suspected, possibility of transient/passed stone given known cholelithiasis was discussed with her and her son. Her liver parameters were normal on admission, and are currently normal at discharge, but transiently T bili was noted to bump up to highest of 1.3 on 01/28. We briefly considered pursuing additional assessment with repeat MRCP, although she would prefer at this time to revisit with her desk pen set assembler first. Please see full imaging and laboratory findings for details. Do not hesitate to reach out with questions. Physical Exam Const: COMMON NORMALS: no acute distress and patient oriented x3 HENMT: COMMON NORMALS: oropharynx normal Neck/C-Spine: COMMON NORMALS: no JVD Resp: COMMON NORMALS: normal respiratory effort and clear to auscultation bilaterally AUSCULTATION: clear to auscultation bilaterally Cardio: COMMON NORMALS: no JVD, regular rhythm, S1 normal heart sound present, S2 normal heart sound present and No murmurs present (Cardio) RHYTHM: regular rhythm HEART SOUNDS: S1 normal heart sound present and S2 normal heart sound present GI: COMMON NORMALS: Normal to inspection, nondistended, normoactive bowel sounds present, Soft to palpation and non-tender PALPATION: Yes Soft to palpation Extremity: COMMON NORMALS: no joint enlargement and no pedal edema Neuro: COMMON NORMALS: patient oriented x3 and moves all extremities Skin: COMMON NORMALS: no rashes or lesions noted GENERAL SKIN EXAM: no rashes or lesions noted Discharge Data Data Completed and Pending: Completed Studies During Hospitalization Category Date Time Status CT abdomen pelvis w con* [id number] Rout ine Cat Scan 01/30/21 11:[address] abdomen pelvis w con* [id number] Stat Cat Scan 01/25/21 11:[address] abdomen pelvis wo con [id number] Rout ine Cat Scan 01/27/21 11:24 Completed XR chest 1V carmela ble [id number] Routine Exams 01/27/21 10:34 Completed XR chest 1V carmela ble [id number] Stat Exams 01/25/21 11:42 Com[place] MR [place] RT wo/[place] [id number] Urgent MRI 01/27/21 11:24 [place] [id number] Routin e Ultrasound 01/29/21 20:36 Completed [place] abdomen limite d [id number] Routine Ultrasound 01/27/21 11:24 Completed Pending at discharge Category Date Time Status Blood Culture Sta t Lab 01/27/21 11:50 Results Blood Culture Sta t Lab 01/29/21 11:42 Results Clostridioides Di fficile PCR Routin e Lab 01/30/21 15:54 Results Enteric Bacterial Panel by PCR Rout ine Lab 01/30/21 15:54 Results Enteric Parasite Panel by PCR Routi ne Lab 01/30/21 15:54 Results Immunochemical Fe monika OCB Routine Lab 01/30/21 15:54 Results Urine Culture Rou elijah Lab 01/29/21 12:49 Results Labs from last 24 hours 01/30/21 01/30/21 05:30 05:30 WBC 9.5 RBC 4.20 Hgb 12.5 Hct 38.3 MCV 91.2 MCH 29.8 MCHC 32.6 RDW 12.5 Plt Count 258 MPV 10.5 H Neut % (Auto) 66.0 Lymph % (Auto) 18.1 [place] % (Auto) 12.5 Eos % (Auto) 1.9 Baso % (Auto) 0.4 Neut # (Auto) 6.25 Lymph # (Auto) 1.7 [place] # (Auto) 1.2 H Eos # (Auto) 0.2 Baso # (Auto) 0.0 Nucleated RBC % (a uto) 0 Nucleated RBCs # 0.0 Sodium 137 Potassium 2.9 L Chloride 100 Carbon Dioxide 27 Anion Gap 12.9 BUN 10 Creatinine 0.5 GFR Calculation Not Reportable Glucose 103 Calculated Osmolal ity 283 L Calcium 8.7 Total Bilirubin 0.9 AST 20 ALT 19 Alkaline Phosphata se 71 Total Protein 6.7 Albumin 3.3 L Globulin 3.4 Vitals: Last Vital Signs Temp 98.1 F 01/30/21 20:00 Pulse 94 01/30/21 20:00 Resp 18 01/30/21 20:00 BP 137/84 01/30/21 20:00 Pulse Ox 95 01/30/21 20:00 Discharge Plan Discharge Patient Disposition: Home Condition: Stable Prescriptions: New Cipro 500 mg tablet 500 mg PO BID Qty: 14 RF: 0 Flagyl 500 mg tablet 500 mg PO Q8H 7 Days Qty: 21 RF: 0 potassium chloride 20 mEq tablet extended release 20 meq PO DAILY Qty: 14 RF: 0 Continued Hair,Skin and Nails Tablet 1 tab PO DAILY@0930 RF: 0 Miralax 17 gram/dose Powder 17 g PO DAILY@0930 RF: 0 Vitamin D3 1 tab PO DAILY@0930 RF: 0 cetirizine 10 mg Tablet 5 mg PO DAILY PRN (Reason: Allergy Symptoms) RF: 0 Protonix 1 tab PO DAILY@0930 RF: 0 vitamin B complex 1 tab PO DAILY@0930 RF: 0 Discharge Orders: Discharge Order (Routine); Ordered 01/30/21 Ordered By: Kyle Pascal Other Ambulatory Orders: CT abdomen pelvis w con* [id number] (Routine) Timeframe: 5 Weeks Facility: [facility] - Location: [facility] Ordered By: Kyle Pascal Referrals: LUCIA GARCIA NP [Referring] - 4-7 days Lance De La Cruz MD [Referring] - 4-7 days Eyal Acevedo MD [Primary Care Provider] - 4-7 days Discharge Diet: Diabetic and Low Fat Discharge Activity: Increase activity as tolerated Patient Instructions: Ciprofloxacin (By mouth), Potassium Chloride (By mouth), Metronidazole (By mouth), Pancreatitis (GEN), Cholelithiasis (GEN), Sepsis (GEN), Ileus (GEN) Activity Restrictions/Additional Instructions: Please complete antibiotic course for suspected infection, with pancreatitis with suspected area of necrosis, possible forming pseudocyst, with possible infection. Please discuss with your primary care doctor and desk pen set assembler regarding pancreatitis with sepsis, abnormal findings on CT scan with fluid collections, and area of hypodensity concerning for possible forming pseudocyst, possible necrosis. Please discuss with your primary care doctor and orthopedic physician also regarding abnormal findings on MRI of the knee, with mild diffuse synovial enhancement, synovial thickening, small amount of fluid with lobulated fluid with peripheral soft tissue enhancement measuring 2 x 0.6 cm in lateral patellofemoral joint space. As well as enhancement of the periphery of moderately complex Jerez's cyst. Please discuss with your primary care doctor about mildly to moderately low potassium levels requiring replacement. Please follow-up potassium level with your primary care doctor next visit. Please have your primary care doctor follow-up final studies with regards to stool culture and ova and parasites to follow-up on diarrhea. C. difficile and occult blood tests are negative. Please exercise caution if you notice recurrence of frequent or high fevers, worsening abdominal pain, nausea, vomiting inability to tolerate oral intake, swelling, redness, tenderness or other changes that are concerning in your knee or any other concerning symptoms, please seek medical attention without delay due to concern of possible infection or other problems that may need immediate attention. 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
== END 2021-01-30 20:40 | disposition home or self-care (01) | DRG 438 ==
LOC: ER 11:32 → MEDSURG 14:31
PROVIDERS: Admitting Provider Hospitalist; Emergency Provider Family Medicine; PCP Family Medicine; Visit Provider Internal Medicine
DX: K85.90 Acute pancreatitis without necrosis or infection, unspecified (principal); A41.9 Sepsis, unspecified organism; K56.7 Ileus, unspecified; Z86.16 Personal history of COVID-19; K29.70 Gastritis, unspecified, without bleeding; E87.6 Hypokalemia; K80.80 Other cholelithiasis without obstruction; Z87.01 Personal history of pneumonia (recurrent); M17.11 Unilateral primary osteoarthritis, right knee
CPT/HCPCS: 36415; 71045; 73721; 73723; 74176; 74177; 76705; 80053; 81001; 82274; 83605; 83630; 83690; 83735; 85025; 87040; 87086; 87493; 87506; 93005; 93971; 96365; 96372; 96375; 96376; 99285; A9577; J1170; J1650; J2405; J2543; J3475; J3480; J3490; J7030; Q9967

== ENCOUNTER 2021-07-15 11:29 | Outpatient (CLI) | payer MEDICARE, OTHER, SELFPAY ==
--- NOTE | 2021-07-15 | US_ITS ---
WS: [id number] ULTRASOUND ABDOMEN LIMITED CLINICAL INFORMATION: PANCREATITIS, ACUTE COMPARISON: January 27, 2021 FINDINGS: Liver Size: Normal. Craniocaudal length: 12.7 cm. Echogenicity: Normal. Surface nodularity: None. Mass (size and location): None. Bile ducts Intrahepatic ducts: Normal. Common bile duct diameter: 0.29 cm. Gallbladder Cholelithiasis Gallstones: Present Gallbladder sludge: None. Gallbladder wall thickening: None. Pericholecystic fluid: None. Sonographic Shannon sign: Absent. Pancreas Echogenic Right kidney: Normal. Hydronephrosis: None. Size: 9.9 cm x 4.2 cm x 4.6 cm. Abdominal aorta and IVC Visualized portions are normal. Ascites: None. US/US liver [id number] IMPRESSION: 1. Normal liver. 2. Cholelithiasis. No gallbladder wall thickening. Normal common bile duct. 3. Echogenic pancreas can be seen with pancreatitis and/or fatty infiltration. Recommend correlation with pancreatic enzymes. Normal pancreatic duct. No visu alized peripancreatic fluid. Findings can be followed up with abdominal pelvis contrast-enhanced CT. 4. No hydronephrosis in right kidney.
== END 2021-07-15 11:30 | disposition home or self-care (01) ==
LOC: RADOUTREAD 11:35
PROVIDERS: PCP Family Medicine; Visit Provider Family Medicine
DX: K85.90 Acute pancreatitis without necrosis or infection, unspecified (principal); K80.20 Calculus of gallbladder without cholecystitis without obstruction
CPT/HCPCS: 76705

== ENCOUNTER 2021-07-28 13:46 | Outpatient (CLI) | payer MEDICARE, OTHER, SELFPAY ==
--- NOTE | 2021-07-28 14:04 | CT_ITS ---
WS: [id number] CT ABDOMEN CONTRAST TECHNIQUE: Contrast enhanced CT of the abdomen with coronal and sagittal reformatted images. CLINICAL INFORMATION: ACUTE PANCREATITIS COMPARISON: Prior CT January 30, 2021 January 27, 2021. Ultrasound July 15, 2021 DLP: 620.[address] scans at [facility] use at least one of these dose optimization techniques: automat ed exposure control; mA and/or kV adjustment per patient size (includes targeted exams where dose is matched to clinical indication); or iterative reconstruction. FINDINGS: Diffuse fatty infiltration of the liver. A few incidental hepatic cysts. Splenic granulomas. Normal G E junction. Atelectasis in the lung bases. Noncalcified nodule right lower lobe measuring 7 mm unchan ged since January 30, 2021 and stable since November 05, 2019. Small amount of subpleural nodularity in both lung bases. Previously described acute pancreatitis has essentially resolved. Mild fatty atrophy of the pancreas. Normal pancreatic parenchymal enhancement. No pseudocyst or peripancreatic fluid collections. Normal gallbladder. No intrahepatic biliary ductal dilatation. Adrenal glands are normal. Normal renal parenchymal enhancement. No hydronephrosis. Moderate spondyli tic changes lumbar spine. CT/CT abdomen w con* [id number] IMPRESSION: 1. Previously described findings of acute pancreatitis have essentially resolv ed. No significant peripancreatic edema or inflammatory stranding today. 2. No pseudocyst or Peripancreatic fluid collections. 3. Normal pancreatic parenchymal enhancement. 4. Diffuse fatty infiltration the liver with a few incidental hepatic cysts. 5. Noncalcified 7 mm nodule right lower lobe stable since 2018. Recommend 12 m onth follow-up CT chest.
[2021-07-28] MEDS: iohexol 300 mg/mL 100 mL Btl IV (14:29)
[2021-07-28] MEDS: iohexol 300 mg/mL 50 mL Btl PO (14:30)
== END 2021-07-28 13:47 | disposition home or self-care (01) ==
PROVIDERS: PCP Family Medicine; Visit Provider Family Medicine
DX: K85.90 Acute pancreatitis without necrosis or infection, unspecified (principal); R91.1 Solitary pulmonary nodule; K76.0 Fatty (change of) liver, not elsewhere classified; K76.89 Other specified diseases of liver
CPT/HCPCS: 74160; Q9967

== ENCOUNTER 2022-03-25 09:04 | Outpatient (CLI) | payer MEDICARE, OTHER, SELFPAY ==
--- NOTE | 2022-03-25 09:29 | CT_ITS ---
WS: [id number] CT ABDOMEN AND PELVIS WITH CONTRAST HISTORY: REBOUND TENDERNESS, recent pancreatitis. Abdominal pain and bloating. TECHNIQUE: Imaging performed of the abdomen and pelvis with IV contrast. Single phase imaging of the abdomen. Coronal and sagittal reformats are submitted. All CT scans at [facility] use at [facility] one of these dose optimization techniques: automated exposure control; mA and/or kV adjustment per patient size (includes targeted exams where dose is matched to clinical indication); or iterative re construction. IV CONTRAST: Omnipaque 350; 95 mL IV. Oral contrast: Yes. DLP: 1168.52 mGy.cm COMPARISON: 07/28/2021 Lower thorax: Stable round 6 mm noncalcified nodule at the RIGHT lung base. Nodule is present on rangel ral prior examinations. Benign granuloma at the RIGHT lung base. Moderate cardiomegaly. Small hiatal hernia. Liver/biliary system: Normal size liver with granulomata. Well-circumscribed low-attenuation nodule i n the RIGHT lobe and a few scattered granulomata are stable. Normal portal vein. Gallbladder: Normal. No gallstones or wall thickening. No pericholecystic fluid. Pancreas: Normal size pancreas and pancreatic duct. No adjacent inflammation. Spleen: Normal size spleen. Granulomata. Adrenal glands: Normal. Right kidney: Normal. Left kidney: Mild perinephric stranding. No obstruction. Aorta: Mild atherosclerosis with no aneurysm. Calcified plaque at the origins of the SMA and celiac a xis. No occlusions. Lymphadenopathy: None. Free fluid: None. GI tract: Moderate distention of the stomach with air and contrast. No small bowel obstruction or wal l thickening. There is marked dilatation of the colon with air. Lumen of the transverse colon measure s up to 10 cm in diameter. There is marked circumferential mucosal thickening at the cecum. Soft tiss ue wall thickening at the cecum measures up to 1.4 cm. No adjacent lymph nodes. There is a very high- grade transition site noted near the distal transverse colon or splenic flexure. Marked dilatation of the transverse colon. Abrupt transition point and the distal colon is collapsed. Focal stricture is identified but not a lot of increased soft tissue. These findings are highly suspicious for an underl nicole neoplasm or possible inflammatory stricture. No adjacent lymph nodes. Abdominal wall: Unremarkable abdominal wall. No hernia. Pelvis: Small amount of free fluid in the pelvis. The uterus is atrophic and anteverted. No lymph nod es. Minimal distention of the urinary bladder. Bones: L4 anterolisthesis by 7 mm. No pars defects. Facet disease in the lower lumbar spine. No osteo blastic or osteolytic bone disease. Prior ORIF LEFT hip. CT/CT abdomen pelvis w con* [id number] IMPRESSION: 1. High-grade colon obstruction with change in caliber of the distal transver se/splenic flexure. Focal area of luminal stenosis without significantly increa sed soft tissue. Neoplastic and postinflammatory stricture within the different ial. 2. Additional circumferential soft tissue thickening at the cecum suspicious f or neoplasm. 3. Recommend colonoscopy evaluation of the colon. 4. Small amount of free fluid in the pelvis. 5. No adenopathy or metastatic disease to the adrenal glands. Stable RIGHT low er lobe 6 mm noncalcified pulmonary nodule. Notified Eyal Acevedo MD at 03/25/2022 12:50 PM.
[2022-03-25] MEDS: iohexol 350 mg/mL 100 mL Btl IV (10:52)
[2022-03-25] MEDS: iohexol 300 mg/mL 50 mL Btl PO (10:52)
== END 2022-03-25 09:05 | disposition home or self-care (01) ==
LOC: RAD 09:09
PROVIDERS: PCP Family Medicine; Visit Provider Family Medicine
DX: R10.829 Rebound abdominal tenderness, unspecified site (principal); K56.609 Unspecified intestinal obstruction, unspecified as to partial versus complete obstruction
CPT/HCPCS: 74177

== ENCOUNTER → 2022-11-02 13:33 | Outpatient (BNVA) | payer MEDICARE, OTHER, SELFPAY | PROVIDERS: PCP Family Medicine; Visit Provider Podiatrist Foot & Ankle Surgery | DX: M21.41 Flat foot [pes planus] (acquired), right foot (principal); M21.42 Flat foot [pes planus] (acquired), left foot; M21.621 Bunionette of right foot; M21.622 Bunionette of left foot | CPT/HCPCS: 73630; 99204 ==

== ENCOUNTER → 2022-12-15 14:33 | Outpatient (BNVA) | payer MEDICARE, OTHER, SELFPAY | PROVIDERS: PCP Family Medicine; Visit Provider Podiatrist Foot & Ankle Surgery | DX: M21.41 Flat foot [pes planus] (acquired), right foot (principal); M21.42 Flat foot [pes planus] (acquired), left foot; M21.621 Bunionette of right foot; M21.622 Bunionette of left foot | CPT/HCPCS: 99213 ==

== ENCOUNTER 2023-12-28 10:08 | Outpatient (CLI) | payer MEDICARE, OTHER, SELFPAY ==
--- NOTE | 2023-12-28 | ECG_ITS ---
[facility] Test Date: 2023-12-28 Pat Name: Kevin Galeana Department: Room: Gender: Female Minister Of Religion: : 1945 Requested By: Yajaira Bowman Order Number: [id number] Rohith MD: Zachary Loja M.D. Interpretive Statements NAME OF STUDY: LEXISCAN SESTAMIBI STRESS TEST INDICATION: [Chest Pain] Procedure: At the baseline, the blood pressure was 149/88 mmHg with a heart rate of 74 bpm. The electrocardiogram showed normal sinus rhythm, normal axis with normal ST and T's. Right bundle branch block The Lexiscan was infused over a period of 20 seconds. A total of 0.4 mg of Lexiscan was infused. The stress phase was continued for a total of 5 minutes. Heart rate was at the end of stress phase was 95 bpm and a blood pressure of 141/66 mmHg. The EKG at the peak infusion revealed normal sinus rhythm with no significant ST-T wave changes. PVCs are seen. Sestamibi was injected 20 seconds after the Lexiscan infusion. Blood pressure at the end of recovery phase was 121/94 mmHg with a heart rate of 83 bpm. Conclusion: 1. Normal EKG response to Lexiscan infusion 2. No Lexiscan induced chest pain or cardiac arrhythmia. 3. Normal blood pressure and heart rate response. 4. Sestamibi/sestamibi perfusion scan pending; see separate report. Electronically Signed On 01-02-2024 12:02:20 DIRECT CUSTOMER SERVICE REPRESENTATIVE by Zachary Loja M.D. [email or web address]
[2023-12-28 11:16] VITALS: BMI 32.9
--- NOTE | 2023-12-28 11:21 | NMCV_ITS ---
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 Images obtained in supine and prone position. SPECT RESULTS Technical Quality: Excellent Raw Data Analysis: Normal Image Corrections: No attenuation or motion correction applied Summed Stress Score: 2 Summed Rest Score: 0 Summed Difference Score: 2 PERFUSION FINDINGS SPECT images demonstrate homogeneous tracer distribution throughout the myocardium. FUNCTIONAL RESULTS (calculated via Gated SPECT) Stress Image LV EF (%): 71 Stress EDV (mL):62 TID: 0.86 Stress ESV (mL):18 FUNCTIONAL FINDINGS: There is normal left ventricular systolic function. IMPRESSIONS 1. Normal myocardial perfusion imaging with no evidence of ischemia 2. LV systolic function is normal Zachary Loja MD (Electronically Signed) Final Date: 01 January 2024 13:36 S
[2023-12-28] MEDS: regadenoson 0.4 Mg/5 ml Syringe IVP (13:45)
[2023-12-28 13:59] VITALS: BP 113/84; PULSE 62
== END 2023-12-28 10:09 | disposition home or self-care (01) ==
PROVIDERS: PCP Family Medicine; Visit Provider Family Medicine
DX: R07.9 Chest pain, unspecified (principal)
CPT/HCPCS: 36415; 78452; 93017; 96374; A9500; J2785

== ENCOUNTER 2024-01-03 15:16 | Outpatient (CLI) | payer MEDICARE, OTHER, SELFPAY ==
--- NOTE | 2024-01-03 15:20 | MM_ITS ---
WS: [id number] BILATERAL 3D TOMOSYNTHESIS DIGITAL SCREENING MAMMOGRAPHY WITH CAD CLINICAL INFORMATION: SCREENING HISTORY: Screening mammogram. No current complaints. COMPARISON: None. TECHNIQUE: Bilateral CC and MLO views. FINDINGS: Scattered fibroglandular densities bilaterally. No suspicious focal mass, asymmetry, calcifications, or architectural distortion. No evidence of malignancy. Vascular calcification. A few incidental punc garcia calcifications. IMPRESSION: MM/[place] [id number] BI-RADS: 2-Benign FOLLOW UP: 1 Year Follow-up Recommend return to annual screening mammography.
== END 2024-01-03 15:17 | disposition home or self-care (01) ==
LOC: RAD 15:16
PROVIDERS: PCP Family Medicine; Visit Provider Family Medicine
DX: Z12.31 Encounter for screening mammogram for malignant neoplasm of breast (principal); R92.323 Mammographic fibroglandular density, bilateral breasts
CPT/HCPCS: 77063; 77067

== ENCOUNTER → 2024-12-19 13:12 | Outpatient (BNVA) | payer MEDICARE, OTHER, SELFPAY | PROVIDERS: PCP Family Medicine; Visit Provider Thoracic Surgery (Cardiothoracic Vascular Surgery) | DX: I96 Gangrene, not elsewhere classified (principal); L98.491 Non-pressure chronic ulcer of skin of other sites limited to breakdown of skin | CPT/HCPCS: 97597; 99213 ==

== ENCOUNTER → 2024-12-26 13:45 | Outpatient (BNVA) | payer MEDICARE, OTHER, SELFPAY | PROVIDERS: PCP Family Medicine; Visit Provider Thoracic Surgery (Cardiothoracic Vascular Surgery) | DX: I96 Gangrene, not elsewhere classified (principal); L98.491 Non-pressure chronic ulcer of skin of other sites limited to breakdown of skin | CPT/HCPCS: 97597 ==

== ENCOUNTER → 2025-01-02 13:19 | Outpatient (BNVA) | payer MEDICARE, OTHER, SELFPAY | PROVIDERS: PCP Family Medicine; Visit Provider Thoracic Surgery (Cardiothoracic Vascular Surgery) | DX: I96 Gangrene, not elsewhere classified (principal); L98.491 Non-pressure chronic ulcer of skin of other sites limited to breakdown of skin | CPT/HCPCS: 97597; A6219 ==

== ENCOUNTER 2025-01-11 12:58 | Outpatient (CLI) | payer MEDICARE, OTHER, SELFPAY ==
--- NOTE | 2025-01-11 13:00 | MM_ITS ---
WS: [id number] BILATERAL SCREENING DIGITAL TOMOSYNTHESIS MAMMOGRAM WITH CAD HISTORY: SCREENING COMPARISON: 01/03/2024 Bilateral CC and MLO views with tomosynthesis and synthetic mammography submitted. Computer aided detection analyzed. Breast composition: There are scattered areas of fibroglandular density. No suspicious masses, microcalcifications or architectural distortion. Vascular and benign calcifications within each breast. MM/MM scr tomosynthesis 92408 IMPRESSION: BI-RADS: 2 - Benign. FOLLOW UP: 1 Year Follow-up
--- NOTE | 2025-01-11 13:30 | XR_ITS ---
WS: [id number] DEXA (DUAL ENERGY X-RAY ABSORPTIOMETRY) Bone mineral density was performed using a Famely machine. HISTORY: ASYMPTOMATIC MENOPAUSAL STATE COMPARISON: None available. Lumbar spine BMD (L1-L4): 1.103 g/cm2 T score: -0.6 Z score: 0.6 Total hip BMD: Right: 0.729. T score: -2.2 Z score: -0.6 LEFT forearm BMD: 0.620 g/cm2. T score: -2.9 Z score: -0.2 10 year probability of a major osteoporotic fracture is 17.8 XR/XR DEXA axial skeleton* 33849 IMPRESSION: OSTEOPOROSIS based upon the WHO classification for females.
== END 2025-01-11 12:59 | disposition home or self-care (01) ==
LOC: RAD 12:59
PROVIDERS: PCP Family Medicine; Visit Provider Family Medicine
DX: Z12.31 Encounter for screening mammogram for malignant neoplasm of breast (principal); Z78.0 Asymptomatic menopausal state; R92.323 Mammographic fibroglandular density, bilateral breasts; R92.1 Mammographic calcification found on diagnostic imaging of breast; M81.0 Age-related osteoporosis without current pathological fracture
CPT/HCPCS: 77063; 77067; 77080

== ENCOUNTER → 2025-01-19 10:54 | Outpatient (BNVA) | payer MEDICARE, OTHER, SELFPAY | PROVIDERS: PCP Family Medicine; Visit Provider Thoracic Surgery (Cardiothoracic Vascular Surgery) | DX: I96 Gangrene, not elsewhere classified (principal); L98.491 Non-pressure chronic ulcer of skin of other sites limited to breakdown of skin | CPT/HCPCS: 97597; A6210; A6248 ==

== ENCOUNTER → 2025-02-02 10:54 | Outpatient (BNVA) | payer MEDICARE, OTHER, SELFPAY | PROVIDERS: PCP Family Medicine; Visit Provider Thoracic Surgery (Cardiothoracic Vascular Surgery) | DX: I96 Gangrene, not elsewhere classified (principal); L97.121 Non-pressure chronic ulcer of left thigh limited to breakdown of skin | CPT/HCPCS: 97597; A6210; A6248 ==

== ENCOUNTER → 2025-02-15 08:25 | Outpatient (BNVA) | payer MEDICARE, OTHER, SELFPAY | PROVIDERS: PCP Family Medicine; Visit Provider Thoracic Surgery (Cardiothoracic Vascular Surgery) | DX: I96 Gangrene, not elsewhere classified (principal); L98.491 Non-pressure chronic ulcer of skin of other sites limited to breakdown of skin; L97.121 Non-pressure chronic ulcer of left thigh limited to breakdown of skin | CPT/HCPCS: 97597; A6248 ==

== ENCOUNTER → 2025-03-01 11:08 | Outpatient (BNVA) | payer MEDICARE, OTHER, SELFPAY | PROVIDERS: PCP Family Medicine; Visit Provider Thoracic Surgery (Cardiothoracic Vascular Surgery) | DX: I96 Gangrene, not elsewhere classified (principal); L98.491 Non-pressure chronic ulcer of skin of other sites limited to breakdown of skin; L97.121 Non-pressure chronic ulcer of left thigh limited to breakdown of skin | CPT/HCPCS: 97597; 97598 ==

== ENCOUNTER → 2025-03-15 11:10 | Outpatient (BNVA) | payer MEDICARE, OTHER, SELFPAY | PROVIDERS: PCP Family Medicine | DX: I96 Gangrene, not elsewhere classified (principal); L98.491 Non-pressure chronic ulcer of skin of other sites limited to breakdown of skin; L97.121 Non-pressure chronic ulcer of left thigh limited to breakdown of skin | CPT/HCPCS: 11042; 97597 ==

== ENCOUNTER → 2025-03-29 11:12 | Outpatient (BNVA) | payer MEDICARE, OTHER, SELFPAY | PROVIDERS: PCP Family Medicine | DX: I96 Gangrene, not elsewhere classified (principal); L98.492 Non-pressure chronic ulcer of skin of other sites with fat layer exposed; L97.121 Non-pressure chronic ulcer of left thigh limited to breakdown of skin | CPT/HCPCS: 11042; 97597 ==

== ENCOUNTER → 2025-04-12 11:13 | Outpatient (BNVA) | payer MEDICARE, OTHER, SELFPAY | PROVIDERS: PCP Family Medicine; Visit Provider Thoracic Surgery (Cardiothoracic Vascular Surgery) | DX: I96 Gangrene, not elsewhere classified (principal); L98.491 Non-pressure chronic ulcer of skin of other sites limited to breakdown of skin; L97.121 Non-pressure chronic ulcer of left thigh limited to breakdown of skin | CPT/HCPCS: 15271; A6212; A6250 ==

== ENCOUNTER → 2025-04-19 13:51 | Outpatient (BNVA) | payer MEDICARE, OTHER, SELFPAY | PROVIDERS: PCP Family Medicine | DX: I96 Gangrene, not elsewhere classified (principal); L98.491 Non-pressure chronic ulcer of skin of other sites limited to breakdown of skin; L97.121 Non-pressure chronic ulcer of left thigh limited to breakdown of skin | CPT/HCPCS: 15271; A6206; A6250 ==

== ENCOUNTER → 2025-04-26 14:10 | Outpatient (BNVA) | payer MEDICARE, OTHER, SELFPAY | PROVIDERS: PCP Family Medicine; Visit Provider Thoracic Surgery (Cardiothoracic Vascular Surgery) | DX: I96 Gangrene, not elsewhere classified (principal); L98.491 Non-pressure chronic ulcer of skin of other sites limited to breakdown of skin; L97.121 Non-pressure chronic ulcer of left thigh limited to breakdown of skin | CPT/HCPCS: 15271; 97597; J9999 ==

== ENCOUNTER → 2025-05-03 14:25 | Outpatient (BNVA) | payer MEDICARE, OTHER, SELFPAY | PROVIDERS: PCP Family Medicine; Visit Provider Thoracic Surgery (Cardiothoracic Vascular Surgery) | DX: I96 Gangrene, not elsewhere classified (principal); L98.491 Non-pressure chronic ulcer of skin of other sites limited to breakdown of skin; L97.121 Non-pressure chronic ulcer of left thigh limited to breakdown of skin | CPT/HCPCS: 15271; 97597 ==

== ENCOUNTER → 2025-05-11 10:59 | Outpatient (BNVA) | payer MEDICARE, OTHER, SELFPAY | PROVIDERS: PCP Family Medicine | DX: I96 Gangrene, not elsewhere classified (principal); L98.491 Non-pressure chronic ulcer of skin of other sites limited to breakdown of skin; Z09 Encounter for follow-up examination after completed treatment for conditions other than malignant neoplasm | CPT/HCPCS: 15271 ==

== ENCOUNTER → 2025-05-18 10:52 | Outpatient (BNVA) | payer MEDICARE, OTHER, SELFPAY | PROVIDERS: PCP Family Medicine; Visit Provider Thoracic Surgery (Cardiothoracic Vascular Surgery) | DX: I96 Gangrene, not elsewhere classified (principal); L97.121 Non-pressure chronic ulcer of left thigh limited to breakdown of skin | CPT/HCPCS: 97597; A6210 ==

== ENCOUNTER → 2025-05-25 10:29 | Outpatient (BNVA) | payer MEDICARE, OTHER, SELFPAY | PROVIDERS: PCP Family Medicine | DX: I96 Gangrene, not elsewhere classified (principal); L97.121 Non-pressure chronic ulcer of left thigh limited to breakdown of skin | CPT/HCPCS: 97597; A6210 ==

== ENCOUNTER → 2025-06-07 09:45 | Outpatient (BNVA) | payer MEDICARE, OTHER, SELFPAY | PROVIDERS: PCP Family Medicine; Visit Provider Thoracic Surgery (Cardiothoracic Vascular Surgery) | DX: I96 Gangrene, not elsewhere classified (principal); L98.491 Non-pressure chronic ulcer of skin of other sites limited to breakdown of skin | CPT/HCPCS: 97597; A6210 ==

== ENCOUNTER → 2025-06-22 10:55 | Outpatient (BNVA) | payer MEDICARE, OTHER, SELFPAY | PROVIDERS: PCP Family Medicine; Visit Provider Thoracic Surgery (Cardiothoracic Vascular Surgery) | DX: I96 Gangrene, not elsewhere classified (principal); L98.491 Non-pressure chronic ulcer of skin of other sites limited to breakdown of skin | CPT/HCPCS: 97597; A6210 ==

== ENCOUNTER → 2025-07-06 10:30 | Outpatient (BNVA) | payer MEDICARE, OTHER, SELFPAY | PROVIDERS: PCP Family Medicine; Visit Provider Thoracic Surgery (Cardiothoracic Vascular Surgery) | DX: I96 Gangrene, not elsewhere classified (principal); L97.121 Non-pressure chronic ulcer of left thigh limited to breakdown of skin; L98.491 Non-pressure chronic ulcer of skin of other sites limited to breakdown of skin | CPT/HCPCS: 97597; J9999 ==

== ENCOUNTER → 2025-07-19 13:50 | Outpatient (BNVA) | payer MEDICARE, OTHER, SELFPAY | PROVIDERS: PCP Family Medicine; Visit Provider Thoracic Surgery (Cardiothoracic Vascular Surgery) | DX: I96 Gangrene, not elsewhere classified (principal); L97.121 Non-pressure chronic ulcer of left thigh limited to breakdown of skin; L98.491 Non-pressure chronic ulcer of skin of other sites limited to breakdown of skin | CPT/HCPCS: 97597; J9999 ==

== ENCOUNTER → 2025-08-02 14:53 | Outpatient (BNVA) | payer MEDICARE, OTHER, SELFPAY | PROVIDERS: PCP Family Medicine; Visit Provider Thoracic Surgery (Cardiothoracic Vascular Surgery) | DX: I96 Gangrene, not elsewhere classified (principal); L98.491 Non-pressure chronic ulcer of skin of other sites limited to breakdown of skin; Z09 Encounter for follow-up examination after completed treatment for conditions other than malignant neoplasm | CPT/HCPCS: 97597 ==

== ENCOUNTER → 2025-08-16 11:13 | Outpatient (BNVA) | payer MEDICARE, OTHER, SELFPAY | PROVIDERS: PCP Family Medicine; Visit Provider Thoracic Surgery (Cardiothoracic Vascular Surgery) | DX: I96 Gangrene, not elsewhere classified (principal); L97.121 Non-pressure chronic ulcer of left thigh limited to breakdown of skin | CPT/HCPCS: 97597; J9999 ==

== ENCOUNTER → 2025-09-06 11:13 | Outpatient (BNVA) | payer MEDICARE, OTHER, SELFPAY | PROVIDERS: PCP Family Medicine; Visit Provider Thoracic Surgery (Cardiothoracic Vascular Surgery) | DX: I96 Gangrene, not elsewhere classified (principal); L97.121 Non-pressure chronic ulcer of left thigh limited to breakdown of skin | CPT/HCPCS: 97597; J9999 ==

== ENCOUNTER → 2025-09-27 11:13 | Outpatient (BNVA) | payer MEDICARE, OTHER, SELFPAY | PROVIDERS: PCP Family Medicine; Visit Provider Thoracic Surgery (Cardiothoracic Vascular Surgery) | DX: I96 Gangrene, not elsewhere classified (principal); L97.121 Non-pressure chronic ulcer of left thigh limited to breakdown of skin | CPT/HCPCS: 97597; J9999 ==

== ENCOUNTER → 2025-10-29 11:01 | Outpatient (BNVA) | payer MEDICARE, OTHER, SELFPAY | PROVIDERS: PCP Family Medicine; Visit Provider Thoracic Surgery (Cardiothoracic Vascular Surgery) | DX: I96 Gangrene, not elsewhere classified (principal); L97.121 Non-pressure chronic ulcer of left thigh limited to breakdown of skin | CPT/HCPCS: 97597; A6220 ==

== ENCOUNTER 2025-11-03 16:26 | Emergency (ER) | payer MEDICARE, OTHER, SELFPAY ==
[2025-11-03 16:28] VITALS: BP 182/83; PULSE 106; RESP 17; TEMP 36.8; O2SAT 98; BMI 32.0
--- NOTE | 2025-11-03 16:33 | CTR_ITS ---
PROCEDURE INFORMATION: Exam: CT Head Without Contrast Exam date and time: 11/03/2025 4:36 PM Age: 79 years old Clinical indication: Stroke-like symptoms; Left facial droop; Additional info: Symptoms of acute stroke TECHNIQUE: Imaging protocol: Computed tomography of the head without contrast. Radiation optimization: All CT scans at this facility use at least one of these dose optimization techniques: automated exposure control; mA and/or kV adjustment per patient size (includes targeted exams where dose is matched to clinical indication); or iterative reconstruction. Other technique: STROKE PROTOCOL was implemented. COMPARISON: No relevant prior studies available. RADIATION DOSE METRICS: Total DLP (mGy-cm): 1007.48 FINDINGS: Brain: No evidence of intra-axial or extra-axial hemorrhage. No mass effect or midline shift. Marie-white differentiation is maintained. Basilar cisterns are patent. Cerebral ventricles: No hydrocephalus. Paranasal sinuses: The visualized paranasal sinuses are well aerated. Mastoid air cells: The visualized mastoids and middle ears are clear. Bones: Calvarium is intact. No evidence of acute fracture. Soft tissues: No gross soft tissue abnormality. CT/CT head thrombolytic 27507 IMPRESSION: 1. No acute intracranial abnormality. ASSESSMENT: ASPECTS (Stephanie Stroke Program Early CT Score) is 10.
--- NOTE | 2025-11-03 16:33 | ECG_ITS ---
[facility] 2025[facility]03 Pat Name: Kevin Galeana Department: Room: Gender: Female Phlebotomist Associate: : [id number] Requested By: Lobito Mcmanus Order Number: [id number] Reading MD: ALIREZA CAM Measurements Intervals Zeigler Rate: 74 P: 17 CT: 170 QRS: -35 QRSD: 148 T: 14 QT: 429 QTc: 479 Interpretive Statements SINUS RHYTHM LEFT AXIS DEVIATION [QRS AXIS < -30] RIGHT BUNDLE BRANCH BLOCK [120+ ms QRS DURATION, UPRIGHT V1, 40+ ms S IN I/aVL/V4/V5/V6] POSSIBLE ANTERIOR MYOCARDIAL INFARCTION , OF INDETERMINATE AGE [30 ms Q WAVE IN V3/V4, OR R < 0.2 mV IN V4] Compared to ECG 01/25/2021 11:29:44 Left-axis deviation now present Myocardial infarct finding still present Electronically Signed On 11-03-2025 18:37:22 SMART ENERGY SPECIALIST by ALIREZA CAM [email or web address]
--- OUTSIDE RECORDS SUMMARY | 2025-11-03 16:36 | XMS_ITS | Encounter Summary ---
Author Organization [facility] Address [address] [place] [address] Care Team Providers Care Mechanical Test Engineer Name Role Phone Eyal Acevedo MD Primary Care Provider +1- [phone] Encounter Details Date Type Department Care Team (Late st Contact Info) Description 02/11/2001 Outpatient Historical [facility] [address] [facility] [address] [place] [id number] Candace Ledezma MD NO ADDRESS ON FILE Other screening mammogram (Primary Dx) Social History Tobacco Use Types Packs/Day Years Used Date Smoking Tobacco: Never Assessed Comments Unknown Sex and Gender Information Value Date Recorded Sex Assigned at Not on file Legal Sex Female 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
--- OUTSIDE RECORDS SUMMARY | 2025-11-03 16:36 | XMS_ITS | Encounter Summary ---
Author Organization [facility] Address [address] [place] [address] Care Team Providers Care Design Sales Consultant Name Role Phone Eyal Acevedo MD Primary Care Provider +1- [phone] Reason for Referral * Outpatient Services (Routine) - Closed Specialty Diagnoses / Procedures Referred By Yazan flores Referred To Contact Diagnoses Other screening mammogram Procedures MAMMO DIGITAL SCREEN Yajaira Ward MD [address] [place] [address] Phone: tel: fax: [facility] Pre-Registration [place] CALL TO MAKE APPOINTMENT ONLY [address] [place] [address] Phone: tel: fax: Referral ID Status Reason Start Date Expiration Date V isits Requested Visits Authorized [id number] Closed [facility] TO SCHEDULE (SGF) 06/23/2012 06/23/2013 1 1 Encounter Details Date Type Department Care Team (Latest Contact Info) Description 06/23/2012 Ancillary Orders [facility] Pre-Registration [place] CALL TO MAKE APPOINTMENT ONLY [address] [place] [address] Yajaira Jimenes MD [address] [place] [address] Other screening mammogram Social History Tobacco Use Types Packs/Day Years Used Date Smoking Tobacco: Never Assessed Comments Unknown Sex and Gender Information Value Date Recorded Sex Assigned at Not on file 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 Findings: Bilateral CC and MLO views were obtained. This examination was reviewed with the aid of a computer-aided detection system(CAD). The breast tissue density is average. No significant new findings since the prior mammogram(s). Procedure Note Wolfgang Hammond MD - 07/14/2012 Bilateral Mammogram Reason for Exam: Screening Comparison: Comparison is made with prior exam(s). Findings: Bilateral CC and MLO views were obtained. This examination was reviewed with the aid of a computer-aided detectionsystem(CAD). The breast tissue density is average. No significant new findings since the prior mammogram(s). Yajaira Jimenes MD MAMMO ORDERABLES Final Res ult documented in this encounter Visit Diagnoses Diagnosis Other screening mammogram Other screening mammogram documented in this encounter Care Teams Design Sales Consultant Relationship Specialty Start Date End Date Eyal Acevedo MD [address] [address] PCP - General Family Practice 03/20/21 documented as of this encounter
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
--- OUTSIDE RECORDS SUMMARY | 2025-11-03 16:36 | XMS_ITS | Encounter Summary ---
Author Organization [facility] Address [address] [place] [address] Care Team Providers Care Wallpaper Scraper Name Role Phone Eyal Acevedo MD Primary Care Provider +1- [phone] Encounter Details Date Type Department Care Team (Latest Contact Info) Description 02/26/2011 Ancillary Orders [facility] Nuclear Medicine [address] [place] [phone] Yajaira Jimenes MD [address] [place] [phone] Asymptomatic postmenopausal status (age-related) (natural) Social History Tobacco Use Types Packs/Day Years Used Date Smoking Tobacco: Never Assessed Comments Unknown Sex and Gender Information Value Date Recorded Sex Assigned at Not on file 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 Low bone density (marked osteopenia) in the right proximal femur significantly below the average of the patient's age matched control consistent with accelerated bone demineralization as the etiology of her marked osteopenia. Consider assessing fracture risk using the FRAX analysis tool for guidance of clinical management available online at www.nof.org. Narrative 04/06/2011 10:22 AM CDT DEXA Evaluation of the Lumbar Spine and right Proximal Femur: Reason for Consultation: Ovarian failure at risk for osteoporosis on hormone replacement and calcium therapy. Evaluation of bone mineral density. The following absorptiometry data were obtained. Technical quality of the examinations is satisfactory. Serial examination number one. Lumbar spine images and individual level measurements demonstrate degenerative changes at lower levels resulting in spurious elevation of bone density to a mild degree. L1-L3 BMD (g/cm2): 1.001 Adult T-score: -1.5 Age Matched Z-score: -0.5 Right femoral neck BMD (g/cm2): 0.771 Adult T-score: -1.9 Age Matched Z-score: -0.8 Right total hip BMD (g/cm2): 0.751 Adult T-score: -2.0 Age Matched Z-score: -1.2 Procedure Note Lance Ring MD - 04/06/2011 DEXA Evaluation of the Lumbar Spine and right Proximal Femur: Reason for Consultation: Ovarian failure at risk for osteoporosis on hormone replacement and calcium therapy. Evaluation of bone mineral density. The following absorptiometry data were obtained. Technical quality of the examinations is satisfactory. Serial examination number one. Lumbar spine images and individual level measurements demonstrate degenerative changes at lower levels resulting in spurious elevation of bone density to a mild degree. L1-L3 BMD (g/cm2): 1.001 Adult T-score: -1.5 Age Matched Z-score: -0.5 Right femoral neck BMD (g/cm2): 0.771 Adult T-score: -1.9 Age Matched Z-score: -0.8 Right total hip BMD (g/cm2): 0.751 Adult T-score: -2.0 Age Matched Z-score: -1.2 IMPRESSION Impression: Abnormal examination. Low bone density (marked osteopenia) in the right proximal femur significantly below the average of the patient's age matched control consistent with accelerated bone demineralization as the etiology of her marked osteopenia. Consider assessing fracture risk using the FRAX analysis tool for guidance of clinical management available online at www.nof.org. us Yajaira Jimenes MD DIAGNOSTIC IMAGING ORDERAB LES Final Result documented in this encounter Visit Diagnoses Diagnosis Asymptomatic postmenopausal status (age-related) (natural) Asymptomatic postmenopausal status (age-related) (natural) documented in this encounter Care Teams Wallpaper Scraper Relationship Specialty Start Date End Date Eyal Acevedo MD [address] [phone] PCP - General Family Practice 03/20/21 documented as of this encounter
--- OUTSIDE RECORDS SUMMARY | 2025-11-03 16:36 | XMS_ITS | Encounter Summary ---
Author Organization [facility] Address [address] [place] [address] Care Team Providers Care Radiator Core Tester Name Role Phone Eyal Acevedo MD Primary Care Provider +1- [phone] Encounter Details Date Type Department Care Team (Latest Contact Info) Description 04/29/1998 Outpatient Historical 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
--- OUTSIDE RECORDS SUMMARY | 2025-11-03 16:36 | XMS_ITS | Encounter Summary ---
Author Organization [facility] Address [address] [place] [address] Care Team Providers Care In Flight Refueling Craftsman Name Role Phone Eyal Acevedo MD Primary Care Provider +1- [phone] Encounter Details Date Type Department Care Team (Late st Contact Info) Description 02/26/2011 Ancillary Orders [facility] [address] [phone] Yajaira Jimenes MD [address] [place] [phone] Other screening mammogram Social History Tobacco Use Types Packs/Day Years Used Date Smoking Tobacco: Never Assessed Comments Unknown Sex and Gender Information Value Date Recorded Sex Assigned at Not on file 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 This examination was reviewed with the aid of a computer-aided detection system(CAD). The breast tissue density is average. No significant new findings since the prior mammogram(s). Procedure Note Candace Ledezma MD - 04/07/2011 Bilateral Mammogram Reason for Exam: Screening Comparison: Comparison is made with the prior exam(s) dated 02.11.01(mostrecent previous exam) Findings: Bilateral CC and MLO views were obtained. This examination was reviewed with the aid of a computer-aided detectionsystem(CAD). The breast tissue density is average. No significant new findings since the prior mammogram(s). us Yajaira Jimenes MD MAMMO ORDERABLES Final Res ult documented in this encounter Visit Diagnoses Diagnosis Other screening mammogram Other screening mammogram documented in this encounter Care Teams In Flight Refueling Craftsman Relationship Specialty Start Date End Date Eyal Acevedo MD [address] [phone] PCP - General Family Practice 03/20/21 documented as of this encounter
--- OUTSIDE RECORDS SUMMARY | 2025-11-03 16:36 | XMS_ITS | Clinical Summary ---
Author Organization [facility] Address [address] [place] [address] Phone Care Team Providers Care Director Property Name Role Phone Yajaira Jimenes MD Primary Care Provider +1- [phone] Allergies Active Allergy Reactions Criticality Noted Date Comments Morphine Unknown High 03/25/2018 ileus Medications cetirizine (ZyrTEC) 10 mg tablet Take 10 mg by mouth daily. 01/24/2021 Active oxyCODONE (ROXICODONE) 5 mg tabletIndication s:Status post total right knee replacement Take 1 Tablet (5 mg) by mouth every 4 hours as needed for Pain. No more than 6 tabs daily. Max Daily Amount: 30 mg 42 Tablet 0 03/21/2021 Active pantoprazole (PROTONIX) 40 mg Tablet, Delayed Release (E.C.) Take 1 Tablet (40 mg) by mouth daily car escort. 30 Tablet 0 04/29/2018 Active Active Problems Problem Noted Date Diagnosed Date Status post total right knee replacement 021 History of pancreatitis 03/20/2021 GERD (gastroesophageal reflux disease) History of COVID-19 -hospita lized for 5 days July 2020. 01/24/2021 Chronic constipation 01/24/2021 Allergic rhinitis 01/24/2021 Closed nondisplaced fracture of left ischium with routine healing, subsequent encounter 07/01/2018 Closed nondisplaced fracture of pelvis 8 Closed displaced transverse fracture of shaft of femur with routine healing 03/25/2018 Left tibialis posterior tendinitis 06/07/2016 Calcaneal spur of left foot 06/07/2016 Tailor's bunion of left foot 06/07/2016 Plantar fasciitis 06/07/2016 Pes planus of both feet 06/07/2016 Onychomycosis 06/07/2016 Pronation of both feet 06/07/2016 Abnormal TSH Resolved Problems Problem Noted Date Diagnosed Date Resolved Date Primary osteoarthritis of right knee 01/24/2021 04/15/2021 Preoperative general physical examination 01/24/2021 03/20/2021 Cellulitis of left lower extremity 04/19/2018 01/24/2021 Hypokalemia 04/14/2018 01/24/2021 Multiple trauma 04/14/2018 04/28/2018 History of ileus 04/14/2018 04/28/2018 Open wound of left hip and t high with complication 04/08/2018 01/24/2021 Acute blood loss anemia 04/08/201812/31 Hypotension (arterial) 03/25/201801/24 Immunizations Immunization Administration Dates Next Due (ADACEL/BOOSTRIX)(10 YR UP) TDAP VACCINE, 0.5ML, IM 03/25/2018 Family History Medical History Relation Name Comments No Known Problems Brother Arthritis-osteo Daughter Asthma Daughter Heart Disease Father Heart Surgery Father Glaucoma Maternal Aunt 1 Breast Cancer Maternal Aunt 2 Healthy Maternal Grandfather Osteoporosis Maternal Grandmother Alzheimer's Disease Mother Stroke Mother Heart Disease Paternal Grandmother Migraines Paternal Grandmother Prostate Cancer Paternal Grandmother Heart Disease Sister 1 Hypertension Sister 1 No Known Problems Sister 2 Healthy Son 1 Healthy Son 2 Healthy Son 3 Relation Name Status Comments Brother Alive Daughter Alive Father (Age 94) Maternal Aunt 1 Alive Maternal Aunt 2 Maternal Grandfather Maternal Grandmother Mother (Age 89) Paternal Grandfather Paternal Grandmother Sister 1 Alive Sister 2 Alive Son 1 Alive Son 2 Alive Son 3 Alive Social History Tobacco Use Types Packs/Day Years Used Date Smoking Tobacco: Never Smokeless Tobacco: Never Alcohol Use Standard Drinks/Week Comments No 0 (1 standard drink = 0.6 oz pur e alcohol) Comments Unknown Sex and Gender Information Value Date Recorded Sex Assigned at Not on file 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 Gender Identity Not on file Sexual Orientation Not on file Last Filed Vital Signs Vital Sign Reading Time Taken Comments Blood Pressure 128/78 03/23/2022 11:58 AM CDT Pulse 77 03/23/2022 11:58 AM CDT Temperature 36.8 C (98.2 F) 03/22/2021 7:56 AM CDT Respiratory Rate 16 03/22/2021 7:56 AM CDT Oxygen Saturation - - Inhaled Oxygen Concentration - - Weight 71.7 kg (158 lb) 03/23/2022 11:58 AM CDT Height 157.5 cm (5' 2 ) 03/23/2022 11:58 AM CDT Body Mass Index 28.9 03/23/2022 11:58 AM CDT Plan of Treatment Health Maintenance Due Date Last Done Comments PNEUMOCOCCAL VACCINE 50+ YEA RS (1 of 1 - PCV) 1994 ZOSTER VACCINE (1 of 2) 1994 OSTEOPOROSIS SCREENING 04/06/2016 04/06/2011, 2010 RSV VACCINE (60+ or ) (1 - 1-dose 75+ series) 2019 INFLUENZA VACCINE (#1) 2025 DTAP/TDAP/TD VACCINES (2 - Td or Tdap) 03/25/2028 Medical Devices Implanted Type Area Payroll Accounting Manager Device Identifier Shelf Expiration Date Model / Serial / Lot Primatrix Meshed [id number] - Sna Implanted:Qty: 3 on 04/09/2018 by Nico Moreno MD Biological Left: Leg [employer] 04/28/2022 [id number] / NA / [id number] Description:Bovine ski n tissue Cement [employer] Mv Zirconium Dioxide St Lf Disp [id number] - [id number] Implanted:Qty: 1 on 03/21/2021 by Lance De La Cruz MD Cement Right: Knee [employer] [id number] 04/28/2022 [id number] / / [id number] Cement Palacos Mv Zirconium Dioxide St Lf Disp [id number] - [id number] Implanted:Qty: 1 on 03/21/2021 by Lance De La Cruz MD Cement Right: Knee [employer] [id number] 04/28/2022 [id number] / / [id number] Knee Knee Description:Left knee replac ement Comp Fem Attune Ps Cmnt Sz5 1504-00-225 - [id number] Implanted:Qty: 1 on 03/21/2021 by Lance De La Cruz MD Knee Right: Knee [employer] [id number] 07/29/2030 [id number] / / [id number] Comp Tib Attune Fb Cmnt Sz4 1506-70-004 - [id number] Implanted:Qty: 1 on 03/21/2021 by Lance De La Cruz MD Knee Right: Knee [employer] [id number] 09/28/2030 [id number] / / [id number] Insert Attune Fb Cr Sz5 5mm 1516-20-505 - [id number] Implanted:Qty: 1 on 03/21/2021 by Lance De La Cruz MD Knee Right: Knee [employer] [id number] 09/28/2024 [id number] / / [id number] Nail Intrtn [id number] 130d [id number] - Sna Implanted:Qty: 1 on 03/26/2018 by Helio English MD Nail Left: Femur [employer] 01/04/2026 [id number] / NA / [id number] Description:PER INVOICE Screw Lag/Comp 95/90 [id number] - Sna Implanted:Qty: 1 on 03/26/2018 by Helio English MD Screw Left: Femur [employer] 12/20/2027 [id number] / NA / [id number] Description:PER INVOICE Screw Trgn Lp 5.0x40mm [id number] - Sna Implanted:Qty: 1 on 03/26/2018 by Helio English MD Screw Left: Femur [employer] 12/15/2027 [id number] / NA / [id number] Description:PER INVOICE Screw Trgn Lp 5.0x47.5mm [id number] - Sna Implanted:Qty: 1 on 03/26/2018 by Helio English MD Screw Left: Femur [employer] 12/19/2027 [id number] / NA / [id number] Description:PER INVOICE Procedures Procedure Name Priority Date/Time Associated Diagnosis Comments XR DEXA BONE DENSITY AXIAL 1 OR MORE SITES Routine 04/06/2011 10:01 AM CDT Asymptomatic postmenopausal status (age-related) (natural) from Last 3 Months or Most Recently Relevant to Health Maintenance Results * XR DEXA BONE DENSITY AXIAL 1 OR MORE SITES (04/06/2011 10:01 AM CDT) Anatomical Region Laterality Modality Other Impressions 04/06/2011 10:22 AM CDT Impression: Abnormal [...] -1.2 Procedure Note Lance Ring MD - 01/29/2023 DEXA Evaluation of the Lumbar Spine and [...] of clinical management available online at www.nof.org. Yajaira Jimenes MD DIAGNOSTIC IMAGING ORDERAB LES Final Result from Last 3 Months or Most Recently Relevant to Health Maintenance Insurance MEDICARE PART A AND B * Guarantor: KEVIN LIRIANO Account Type Relation to Patient Date of Phone Billing Address Personal/Family [address] [place] [address] [facility] Medicare Part D Care Teams Director Property Relationship Specialty Start Date End Date Yajaira Jimenes MD [address] [place] [address] PCP - General 03/21/21
--- OUTSIDE RECORDS SUMMARY | 2025-11-03 16:36 | XMS_ITS | Encounter Summary ---
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
--- OUTSIDE RECORDS SUMMARY | 2025-11-03 16:36 | XMS_ITS | Continuity of Care Document ---
Author Organization MARK Kanu Gutiérrez [facility], L[facility]CL[facility], [facility] ([facility]) Address [address] [place] [address] Care Team Providers Care Recruitment Internship Name Role Phone FORREST ACEVEDO Primary Care Provider Unavaila ble Assessment No assessment recorded. Plan of Treatment Reminders Order Date Submit Date Provider Last Modified By Organization Details Last Modified Time Details Appointments RECHEC K 2025 11:10A M Forrest Acevedo MD Not available Not available Not available Lab hemogl obin A1C/he moglob in total, QN, blood 2024 025 estefanía [facility], [address], [facility], [place], [address], 09/07/2025 15:39:00 Referral None record ed. Procedures None record ed. Surgeries None record ed. Imaging None record ed. Medication Orders None record ed. Patient TargetsNo targets recorded. Patient Instructions Encounter Date Encounter Id Patient Instructions Last Modified By Organization Details Last Modified Time 08/21/2025 [id number] back pain: care instructions [email or web address] Not available 08/31/2025 10:30:50 Reason for Referral None Reported. Results Created Date Observation Date Name Description Value Unit Range Abnormal Flag Note LastModifiedBy Organization Detail LastModifiedTime 08/16/2008/16/2025 CBC WBC 4.4 x10 4.0-10 .5 Not Available [facility] [address], [place], [address], 08/16/2025 13:38:46 08/16/20 25 08/16/2025 CBC RBC 4.61 x10 3.50-5 .50 Not Available [facility] [address] [facility], [place], [address], 08/16/2025 13:38:46 08/16/20 25 08/16/2025 CBC HGB 14.1 g/dL 12.0-1 6.0 Not Available [facility] [address] [facility], [place], [address], 08/16/2025 13:38:46 08/16/2008/16/2025 CBC HCT 42.9 % 37.0-4 7.0 Not Available [facility] [address] [facility], [place], [address], 08/16/2025 13:38:46 08/16/20 25 08/16/2025 CBC MCV 93.0 fL 80.0-9 9.9 Not Available [facility] [address] [facility], [place], [address], 08/16/2025 13:38:46 08/16/2008/16/2025 CBC MCH 30.5 pg 27.0-3 2.0 Not Available [facility] [address] [facility], [place], [address], 08/16/2025 13:38:46 08/16/2008/16/2025 CBC MCHC 32.8 g/dL 32.0-3 6.0 Not Available [facility] [address] [facility], [place], [address], 08/16/2025 13:38:46 08/16/20 25 08/16/2025 CBC RDW 13.8 % 11.5-1 4.5 Not Available [facility] [address] [facility], [place], [address], 08/16/2025 13:38:46 08/16/20 25 08/16/2025 CBC plt 257.4 x10 140.0- 451.0 Not Available [facility] [address] [facility], [place], [address], 08/16/2025 13:38:46 08/16/20 25 08/16/2025 CBC lymphocytes % 37.6 % 20.0-5 0.0 Not Available [facility] [address] [place] [address] [facility], [place], [address], 08/16/2025 13:38:46 08/16/20 25 08/16/2025 CBC granulcytes % 46.8 % 30.0-7 0.0 Not Available [facility] [address] [facility] [address], [place], [address], 08/16/2025 13:38:46 08/16/20 25 08/16/2025 CBC monocytes % 13.0 % 2.0-16 .0 Not Available [facility] [address] [place] [address] [address], [place], [address], 08/16/2025 13:38:46 08/16/20 25 08/16/2025 CBC granulcytes# 2.0 x10 Not Neelima ilable [facility] [address] [facility] [address], [place], [address], 08/16/2025 13:38:46 08/16/20 25 08/16/2025 CBC lymphocytes # 1.6 x10 Not Available [facility] [address] [place] [address] [facility], [place], [address], 08/16/2025 13:38:46 08/16/20 25 08/16/2025 CBC monocytes # 0.6 x10 Not Avai lable [facility] [address] [address], [place], [address], 08/16/2025 13:38:46 08/16/20 25 08/16/2025 CMP (FEMA LE) glucose 104.0 mg/dL 60.0-9 9.0 high Not Available [facility] [address] [facility], [place], [address], 08/16/2025 14:34:14 08/16/20 25 08/16/2025 CMP (FEMA LE) BUN (blood urea nitrogen) 15.0 mg/dL 10.0-2 6.0 Not Available [facility] [address] [facility], [place], [address], 08/16/2025 14:34:14 08/16/20 25 08/16/2025 CMP (FEMA LE) creatinine (serum) 0.8 mg/dL 0.4-1. 5 Not Available [facility] [address] [facility], [place], [address], 08/16/2025 14:34:14 08/16/20 25 08/16/2025 CMP (FEMA LE) BUN/creatini ne ratio 18.75 ratio Not Available [facility] [address] [facility], [place], [address], 08/16/2025 14:34:14 08/16/20 25 08/16/2025 CMP (FEMA LE) eGFR calculated 73.4 Not Available [facility] [address] [facility], [place], [address], 08/16/2025 14:34:14 08/16/20 25 08/16/2025 CMP (FEMA LE) total protein 7.7 g/dL 6.0-8. 5 Not Available [facility] [address] [facility], [place], [address], 08/16/2025 14:34:14 08/16/20 25 08/16/2025 CMP (FEMA LE) total bilirubin 1.0 mg/dL 0.2-1. 3 Not Available [facility] [address] [facility] [address], [place], [address], 08/16/2025 14:34:14 08/16/20 25 08/16/2025 CMP (FEMA LE) albumin 4.5 g/dL 3.5-5. 5 Not Available [facility] [address] [facility] [address], [place], [address], 08/16/2025 14:34:14 08/16/20 25 08/16/2025 CMP (FEMA LE) globulin 3.2 calc Not Available [facility] [address] [facility] [address], [place], [address], 08/16/2025 14:34:14 08/16/20 25 08/16/2025 CMP (FEMA LE) AST (SGOT) 45.0 U/L 0.0-46 .0 Not Available [facility] [address] [facility] [address], [place], [address], 08/16/2025 14:34:14 08/16/20 25 08/16/2025 CMP (FEMA LE) altv (SGPT) 15.0 U/L 13.0-6 9.0 normal Not Available [facility] [address] [facility] [address], [place], [address], 08/16/2025 14:34:14 08/16/20 25 08/16/2025 CMP (FEMA LE) A/G ratio 1.4 ratio Not Available [facility] [address] [facility] [address], [place], [address], 08/16/2025 14:34:14 08/16/20 25 08/16/2025 CMP (FEMA LE) ALP phos 68.0 U/L 30.0-1 40.0 normal Not Available [facility] [address] [facility] [address], [place], [address], 08/16/2025 14:34:14 08/16/20 25 08/16/2025 CMP (FEMA LE) calcium 9.3 mg/dL 8.4-10 .5 Not Available [facility] [address] [facility] [address], [place], [address], 08/16/2025 14:34:14 08/16/20 25 08/16/2025 CMP (FEMA LE) sodium 140.0 mmol/ L 136.0- 145.0 Not Available [facility] [address] [facility] [address], [place], [address], 08/16/2025 14:34:14 08/16/20 25 08/16/2025 CMP (FEMA LE) potassium 4.0 mmol/ L 3.5-5. 1 Not Available [facility] [address] [facility] [address], [place], [address], 08/16/2025 14:34:14 08/16/20 25 08/16/2025 CMP (FEMA LE) chloride 106.0 mmol/ L 98.0-1 10.0 normal Not Available [facility] [address] [facility] [address], [place], [address], 08/16/2025 14:34:14 08/16/2008/16/2025 CMP (FEMA LE) C02 26.0 mmol/ L 22.0-3 1.0 Not Available [facility] [address] [facility] [address], [place], [address], 08/16/2025 14:34:14 08/16/20 25 08/16/2025 CMP (FEMA LE) anion gap 8.0 calc Not Available [facility] [address] [facility] [address], [place], [address], 08/16/2025 14:34:14 08/16/20 25 08/16/2025 CMP (FEMA LE) osmolality 290.2 calc Not Available [facility] [address] [facility] 1, [place], [address], 08/16/2025 14:34:14 08/16/20 25 08/16/2025 LIPID PROFI LE (FEMA LE) cholesterol 145.0 mg/dL 0.0-20 0.0 Not Available [facility] [address] [facility] 1, [place], [address], 08/16/2025 14:34:17 08/16/20 25 08/16/2025 LIPID PROFI LE (FEMA LE) trig 83.0 mg/dL 0.0-15 0.0 Not Available [facility] [address] [facility] 1, [place], [address], 08/16/2025 14:34:17 08/16/20 25 08/16/2025 LIPID PROFI LE (FEMA LE) HDL - direct 50.0 mg/dL >40.0 Not Available [facility] [address] [facility] 1, [place], [address], 08/16/2025 14:34:17 08/16/20 25 08/16/2025 LIPID PROFI LE (FEMA LE) VLDL - direct 16.6 mg/dL Not Available [facility] [address] [facility] 1, [place], [address], 08/16/2025 14:34:17 08/16/20 25 08/16/2025 LIPID PROFI LE (FEMA LE) LDL - direct 78.4 mg/dL 0.0-13 0.0 Not Available [facility] [address] [facility] 1, [place], [address], 08/16/2025 14:34:17 Result Notes None recorded. Problems Name Problem SNOMED Code Status Onset Date Resolution Date Notes Provider Name and Address Organization Details Recorded Time History of tubal ligation 950695702 Completed 202102/15/2025 Tubal Ligatio n; 4:02PM by Molly Silverman, Office Visit; Promote d; acuity set as *; SHAEHEN [facility] 5 12:29:08 Total knee replacemen t Completed 202102/15/2025 Total Knee Replace ment; 4:02PM by Molly Silverman, Office Visit; Promote d; acuity set as *; SHAHEEN [facility] 5 12:29:14 Heartburn 93267872 Active 2022 SHAHEEN ingram [facility] 5 13:09:10 Low back pain 747805386 Active 2023 SHAHEEN [facility] 5 12:29:11 Ulcer of lower extremity 22648322 Active 2024 SHAHEEN [facility]ram [facility] 5 12:53:59 Pain in limb 50090527 Active 2024 SHAHEEN [facility] 5 12:54:03 Allergic contact dermatitis 663444532 Active 2024 Evin Lemus MD [address] [place] [address], [address], [facility] 5 13:47:45 Hyperglyce steven 84957124 Active 2024 Forrest Acevedo MD [address] [place], [address], [facility], Andre 13:37:07 Problem Notes None recorded. Procedures Surgical History Date Name Laterality Status Provider Name and Address Organization Details Recorded Time 025 Most [facility] 17:14:47 mammography completed [facility] Andre 02/22/2025 18:37:45 025 dual energy X-ray [facility]pti[facility]25 17:17:43 [facility] 10:54:27 [facility]15[facility]25 12:29:42 [facility] 12:30:41 [facility] bilateral fall[facility] 12:31:24 Imaging Results None recorded. Procedure [...] and Address Organization Details Last Updated DateTime 157.48 cm 32.5 kg/m2 32674.6 5 g 20 /min 97.8 [degF] 72 /min 96 % 136/84 mm[Hg] SHAHEEN ROJAS [facility]CL[facility] 13:07:24 Social History Question Answer Notes LastModified by [employer] Details LastModified Time Tobacco Smoking Status Never Smoker KARY [facility] 08/16/2024 10:53:21 Are You [...] difficulty concentrating, remembering or making decisions? [place] [address] Information no t available 02/15/2025 Family History [...] virus, trivalent, preservative 9 completed Not Available [facility] 06/26/2023 02:27:38 pneumococcal polysaccharide PPV23 9 completed Not Available [facility] 06/26/2023 02:27:38 Past Encounters Encounter ID Performer Location Encounter Start Date Encounter Closed Date Diagnosis/Indication Diagnosis SNOMED-CT Code Diagnosis ICD10 Code Diagnosis IMO Codes Diagnosis Note [id number] Forrest Acevedo MD [facility] ([facility]) [address] [place] [phone] 08/16/2025 13:00:16 08/17/2025 12:43:47 Physical examination [id number] Z00.00 [id number] Forrest Acevedo MD [facility] ([facility]) [address] [place] [phone] 08/21/2025 12:09:30 09/03/2025 08:30:04 Heartburn 31454257 R12 Low back pain 705418892 M54.59 0875501171 Ulcer of l ower extremity 39411522 L97.909 Hyperglycemia 29314230 R 73.9 30242 Health Concerns Section Related Observation LastModified by Organization Detai ls LastModified Time None Recorded Concern Status LastModified by Organization Details LastModified Time None Recorded Payers Encounter Date Sequence Insurance Name Policy Number Policy Caicedo Covered Member ID Caicedo Member ID Guarantor Name 08/21/2025 1 [place] WPS Loelizabethna Green [id number] Louanna Green 08/21/2025 2 [facility] 9 - PLAN F (MEDICARE SUPPLEMENT) Louanna Green [id number] Louanna Green Notes Date Note Type Note Provider Name and Address Organization Details Recorded Time 5 text/html Back PainReported by PatientHPIFor location, [...] for her back pain. Forrest Acevedo MD [address] [place] [address], [phone], [facility] 08/31/2025 10:30:59 OBGyn Episode No OBEpisode recorded.
--- OUTSIDE RECORDS SUMMARY | 2025-11-03 16:36 | XMS_ITS | Encounter Summary ---
Author Organization [facility] Address [address] [place] [address] Care Team Providers Care Food Broker Name Role Phone Eyal Acevedo MD Primary Care Provider +1- [phone] Encounter Details Date Type Department Care Team (Latest Contact Info) Description 03/27/1998 Outpatient Historical [facility] Dermatology- [facility] [address] [facility] [address] [place] [phone] Fausto Jacobs NO ADDRESS ON FILE Other seborrheic keratosis (Primary Dx) Social History Tobacco Use Types Packs/Day Years Used Date Smoking Tobacco: Never Assessed Comments Unknown Sex and Gender Information Value Date Recorded Sex Assigned at Not on file 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
--- OUTSIDE RECORDS SUMMARY | 2025-11-03 16:36 | XMS_ITS | Clinical Summary ---
Author Organization [facility] Address [address] [place] [address] Phone Care Team Providers Care Paper Cone Grader Name Role Phone Eyal Acevedo MD Primary Care Provider +1- [phone] Allergies Active Allergy Reactions Criticality Noted Date Comments Morphine Unknown High 03/25/2018 ileus Medications pantoprazole (PROTONIX) 40 mg Tablet, Delayed Release (E.C.) Take 1 Tablet (40 mg) by mouth daily binder fixer. 30 Tablet 8 Active cetirizine (ZyrTEC) 10 mg tablet Take 10 mg by mouth daily. Active oxyCODONE (ROXICODONE) 5 mg tabletIndication s:Status post total right knee replacement Take 1 Tablet (5 mg) by mouth every 4 hours as needed for Pain. No more than 6 tabs daily. Max Daily Amount: 30 mg 42 Tablet 03/22/2021 12:56 PM CDT 1 Active traMADoL (ULTRAM) 50 mg tabletIndication s:Status post total right knee replacement Take 1 Tablet (50 mg) by mouth every 6 hours as needed for Pain. 40 Tablet 03/22/2021 12:56 PM CDT 1 Active polyethylene glycol 3350 (Miralax) 17 gram/dose Powder Take 1 Scoop (17 Grams) by mouth daily. Dissolve in 8 ounces of fluid and drink entire liquid 510 Gram 03/22/2021 12:56 PM CDT 1 Active Active Problems Problem Noted Date Diagnosed Date Status post total right knee replacement 021 History of pancreatitis 03/20/2021 GERD (gastroesophageal reflux disease) 1 History of COVID-19 -hospita lized for 5 days July 2020. 01/24/2021 Chronic constipation 01/24/2021 Allergic rhinitis 01/24/2021 Closed nondisplaced fracture of left ischium with routine healing, subsequent encounter 07/01/2018 Closed displaced transverse fracture of shaft of femur with routine healing 03/25/2018 Closed nondisplaced fracture of pelvis 8 Left tibialis posterior tendinitis 06/07/2016 Plantar fasciitis 06/07/2016 Onychomycosis 06/07/2016 Calcaneal spur of left foot 06/07/2016 Pes planus of both feet 06/07/2016 Pronation of both feet 06/07/2016 Tailor's bunion of left foot 06/07/2016 Abnormal TSH Resolved Problems Problem Noted Date Diagnosed Date Resolved Date Preoperative general physical examination 01/24/2021 03/20/2021 Primary osteoarthritis of right knee 01/24/2021 04/15/2021 Cellulitis of left lower extremity 04/19/2018 01/24/2021 Multiple trauma 04/14/2018 04/28/2018 History of ileus 04/14/2018 04/28/2018 Hypokalemia 04/14/2018 01/24/2021 Acute blood loss anemia 04/08/201812/31 Open wound of left hip and t high with complication 04/08/2018 01/24/2021 Hypotension (arterial) 03/25/201801/24 Immunizations Immunization Administration Dates [...] Date Smoking Tobacco: Never Smokeless Tobacco: Never Tobacco Cessation:Counseling Given: No Alcohol Use Standard Drinks/Week Comments No 0 (1 standard drink = 0.6 oz pur e alcohol) Comments No Sex and Gender Information Value Date Recorded Sex Assigned at Not on file 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 Gender Identity Not on file Sexual Orientation Not on file Occupation Industry Job Start Date Job End Date Not on file Not on file Not on file Not on file Retired Not on file Not on file Not on file [place] Not on file Not on file Not on file Last Filed Vital Signs Vital Sign Reading Time Taken Comments Blood Pressure 129/75 04/15/2021 1:22 PM CDT Pulse 80 04/15/2021 1:22 PM CDT Temperature 36.8 C (98.2 F) 03/22/2021 7:56 AM CDT Respiratory Rate 16 03/22/2021 7:56 AM CDT Oxygen Saturation 93% 03/22/2021 7:56 AM CDT Inhaled Oxygen Concentration - - Weight 71.7 kg (158 lb) 04/15/2021 1:22 PM CDT Height 157.5 cm (5' 2 ) 04/15/2021 1:22 PM CDT Body Mass Index 28.9 04/15/2021 1:22 PM CDT Plan of Treatment Health Maintenance Due Date Last Done Comments ZOSTER VACCINE (1 of 2) 1994 PNEUMOCOCCAL VACCINE 50+ YEARS (2 of 2 - PCV) 06/21/20 13 06/21/2012 OSTEOPOROSIS SCREENING 04/06/2016 04/06/2011 RSV VACCINE (60+ or ) (1 - 1-dose 75+ series) 2019 INFLUENZA VACCINE (#1) 2025 DTAP/TDAP/TD VACCINES (2 - Td or Tdap) 03/25/2028 Medical Devices Implanted Type Area Animal Ride Manager Device Identifier Shelf Expiration Date Model / Serial / Lot Primatrix Meshed [id number] - Sna Implanted:Qty: 3 on 04/09/2018 by Nico Moreno MD at [facility] Biological Left: Leg [employer] 04/28/2022 [id number] / NA / [id number] Description:Bovine ski n tissue Cement Palacos Mv Zirconium Dioxide St Lf Disp [id number] - [id number] Implanted:Qty: 1 on 03/21/2021 by Lance De La Cruz MD at [facility] Cement Right: Knee [employer] [id number] 04/28/2022 [id number] / / [id number] Cement Palacos Mv Zirconium Dioxide St Lf Disp [id number] - [id number] Implanted:Qty: 1 on 03/21/2021 by Lance De La Cruz MD at [facility] Cement Right: Knee [employer] [id number] 04/28/2022 [id number] / / [id number] Knee Knee Description:Left knee replac ement Comp Fem Attune Ps Cmnt Sz5 1504-00-225 - [id number] Implanted:Qty: 1 on 03/21/2021 by Lance De La Cruz MD at [facility] Knee Right: Knee [employer] [id number] 07/29/2030 [id number] / / [id number] Comp Tib Attune Fb Cmnt Sz4 1506-70-004 - [id number] Implanted:Qty: 1 on 03/21/2021 by Lance De La Cruz MD at [facility] Knee Right: Knee [employer] [id number] 09/28/2030 [id number] / / [id number] Insert Attune Fb Cr Sz5 [facility] 1516-20-505 - [id number] Implanted:Qty: 1 on 03/21/2021 by Lance De La Cruz MD at [facility] Knee Right: Knee [employer] [id number] 09/28/2024 [id number] / / [id number] Nail Intrtn [id number] 130d [id number] - Sna Implanted:Qty: 1 on 03/26/2018 by Helio English MD at [facility] Nail Left: Femur [employer] 01/04/2026 [id number] / NA / [id number] Description:PER INVOICE Screw Lag/Comp 95/90 [id number] - Sna Implanted:Qty: 1 on 03/26/2018 by Helio English MD at [facility] Screw Left: Femur [employer] 12/20/2027 [id number] / NA / [id number] Description:PER INVOICE Screw Trgn Lp 5.0x40mm [id number] - Sna Implanted:Qty: 1 on 03/26/2018 by Helio English MD at [facility] Screw Left: Femur [employer] 12/15/2027 [id number] / NA / [id number] Description:PER INVOICE Screw Trgn Lp 5.0x47.5mm 0925-6537 - Sna Implanted:Qty: 1 on 03/26/2018 by Helio English MD at [facility] Screw Left: Femur [employer] 12/19/2027 [id number] / NA / [id number] Description:PER INVOICE Procedures Procedure Name Priority Date/Time [...] Maintenance Insurance MEDICARE PART A AND B [facility] Medicare Part D Advance Directives For more information, please contact: [phone] * Full Code (Latest Code Status on File) Date Activated Date Inactivated Comments 05/26/2018 12:43 PM 06/03/2018 12:34 PM * Full Code Date Activated Date Inactivated Comments 05/26/2018 9:16 AM 05/26/2018 12:43 PM * Full Code Date Activated Date Inactivated Comments 05/26/2018 7:05 AM 05/26/2018 9:16 AM * Full Code Date Activated Date Inactivated Comments 04/14/2018 4:20 PM 04/30/2018 5:17 PM * Full Code Date Activated Date Inactivated Comments 04/09/2018 7:11 AM 04/14/2018 4:18 PM Care Teams Paper Cone Grader Relationship Specialty Start Date End Date Eyal Acevedo MD [address] [place] [phone] PCP - General Family Practice 03/20/21
--- OUTSIDE RECORDS SUMMARY | 2025-11-03 16:36 | XMS_ITS | Continuity of Care Document ---
Author Organization MARK Gutiérrez [facility], [facility] ([facility]) Address [address] [place] [address] Care Team Providers Care Retail Client Solutions Analyst Name Role Phone FORREST ACEVEDO Primary Care Provider Unavaila ble Assessment No assessment recorded. Plan of Treatment Reminders Order Date Submit Date Provider Last Modified By Organization Details Last Modified Time Details Appointments RECHECK 2025 11:10A M Forrest Acevedo MD Not available Not available Not available Lab CMP, serum or plasma 2024 025 [facility], [address], [facility], [place], [address], 08/16/2025 14:34:14 lipid panel, blood 2024 025 [facility], [address], [facility], [place], [address], 08/16/2025 14:34:17 CBC 2024 025 [facility], [address], [facility], [place], [address], 08/16/2025 13:38:46 Referral None recorded . Procedures None recorded . Surgeries None recorded . Imaging None recorded . Medication Orders None recorded . Patient TargetsNo targets recorded. Patient InstructionsNo instructions recorded. Reason for Referral None Reported. Results Created Date Observation Date Name Description Value Unit Range Abnormal Flag Note LastModifiedBy Organization Detail LastModifiedTime 08/16/2008/16/2025 CBC WBC 4.4 x10 4.0-10 .5 Not Available [facility] [address] [facility], [place], [address], 08/16/2025 13:38:46 08/16/2008/16/2025 CBC RBC 4.61 x10 3.50-5 .50 Not Available [facility] [address] [facility], [place], [address], 08/16/2025 13:38:46 08/16/20 25 08/16/2025 CBC HGB 14.1 g/dL 12.0-1 6.0 Not Available [facility] [address] [facility], [place], [address], 08/16/2025 13:38:46 08/16/2008/16/2025 CBC HCT 42.9 % 37.0-4 7.0 Not Available [facility] [address] [facility], [place], [address], 08/16/2025 13:38:46 08/16/2008/16/2025 CBC MCV 93.0 fL 80.0-9 9.9 Not Available [facility] [address] [facility], [place], [address], 08/16/2025 13:38:46 08/16/2008/16/2025 CBC MCH 30.5 pg 27.0-3 2.0 Not Available [facility] [address] [facility], [place], [address], 08/16/2025 13:38:46 08/16/2008/16/2025 CBC MCHC 32.8 g/dL 32.0-3 6.0 Not Available [facility] [address] [facility], [place], [address], 08/16/2025 13:38:46 08/16/20 25 08/16/2025 CBC RDW 13.8 % 11.5-1 4.5 Not Available [facility] [address] [facility], [place], [address], 08/16/2025 13:38:46 08/16/20 25 08/16/2025 CBC plt 257.4 x10 140.0- 451.0 Not Available [facility] [address] [facility], [place], [address], 08/16/2025 13:38:46 08/16/20 25 08/16/2025 CBC lymphocytes % 37.6 % 20.0-5 0.0 Not Available [facility] [address] [address], [place], [address], 08/16/2025 13:38:46 08/16/20 25 08/16/2025 CBC granulcytes % 46.8 % 30.0-7 0.0 Not Available [facility] [address] [facility], [place], [address], 08/16/2025 13:38:46 08/16/20 25 08/16/2025 CBC monocytes % 13.0 % 2.0-16 .0 Not Available [facility] [address] [address], [place], [address], 08/16/2025 13:38:46 08/16/20 25 08/16/2025 CBC granulcytes# 2.0 x10 Not Neelima ilable [facility] [address] [address], [place], [address], 08/16/2025 13:38:46 08/16/20 25 08/16/2025 CBC lymphocytes # 1.6 x10 Not Available [facility] [address] [facility], [place], [address], 08/16/2025 13:38:46 08/16/20 25 08/16/2025 CBC monocytes # 0.6 x10 Not Avai lable [facility] [address] [facility], [place], [address], 08/16/2025 13:38:46 08/16/20 25 08/16/2025 CMP (FEMA LE) glucose 104.0 mg/dL 60.0-9 9.0 high Not Available [facility] [address] [facility], [place], [address], 08/16/2025 14:34:14 08/16/20 25 08/16/2025 CMP (FEMA LE) BUN (blood urea nitrogen) 15.0 mg/dL 10.0-2 6.0 Not Available [facility] [address] [facility], [place], [address], 08/16/2025 14:34:14 08/16/20 25 08/16/2025 CMP (FEMA LE) creatinine (serum) 0.8 mg/dL 0.4-1. 5 Not Available [facility] [address] [facility] [address] [address], [place], [address], 08/16/2025 14:34:14 08/16/20 25 08/16/2025 CMP (FEMA LE) BUN/creatini ne ratio 18.75 ratio Not Available [facility] [address] [address], [place], [address], 08/16/2025 14:34:14 08/16/20 25 08/16/2025 CMP (FEMA LE) eGFR calculated 73.4 Not Available [facility] [address] [facility] [address] [address], [place], [address], 08/16/2025 14:34:14 08/16/20 25 08/16/2025 CMP (FEMA LE) total protein 7.7 g/dL 6.0-8. 5 Not Available [facility] [address] [facility], [place], [address], 08/16/2025 14:34:14 08/16/20 25 08/16/2025 CMP (FEMA LE) total bilirubin 1.0 mg/dL 0.2-1. 3 Not Available [facility] [address] [facility], [place], [address], 08/16/2025 14:34:14 08/16/20 25 08/16/2025 CMP (FEMA LE) albumin 4.5 g/dL 3.5-5. 5 Not Available [facility] [address] [facility], [place], [address], 08/16/2025 14:34:14 08/16/20 25 08/16/2025 CMP (FEMA LE) globulin 3.2 calc Not Available [facility] [place] [facility] [address] [facility], [place], [address], 08/16/2025 14:34:14 08/16/20 25 08/16/2025 CMP (FEMA LE) AST (SGOT) 45.0 U/L 0.0-46 .0 Not Available [facility] [address] [facility], [place], [address], 08/16/2025 14:34:14 08/16/20 25 08/16/2025 CMP (FEMA LE) altv (SGPT) 15.0 U/L 13.0-6 9.0 normal Not Available [facility] [address] [facility], [place], [address], 08/16/2025 14:34:14 08/16/20 25 08/16/2025 CMP (FEMA LE) A/G ratio 1.4 ratio Not Available [facility] [address] [facility], [place], [address], 08/16/2025 14:34:14 08/16/2008/16/2025 CMP (FEMA LE) ALP phos 68.0 U/L 30.0-1 40.0 normal Not Available [facility] [address] [facility], [place], [address], 08/16/2025 14:34:14 08/16/20 25 08/16/2025 CMP (FEMA LE) calcium 9.3 mg/dL 8.4-10 .5 Not Available [facility] [address] [facility], [place], [address], 08/16/2025 14:34:14 08/16/20 25 08/16/2025 CMP (FEMA LE) sodium 140.0 mmol/ L 136.0- 145.0 Not Available [facility] [address] [facility], [place], [address], 08/16/2025 14:34:14 08/16/2008/16/2025 CMP (FEMA LE) potassium 4.0 mmol/ L 3.5-5. 1 Not Available [facility] [address] [facility], [place], [address], 08/16/2025 14:34:14 08/16/20 25 08/16/2025 CMP (FEMA LE) chloride 106.0 mmol/ L 98.0-1 10.0 normal Not Available [facility] [address] [facility], [place], [address], 08/16/2025 14:34:14 08/16/2008/16/2025 CMP (FEMA LE) C02 26.0 mmol/ L 22.0-3 1.0 Not Available [facility] [address] [facility], [place], [address], 08/16/2025 14:34:14 08/16/20 25 08/16/2025 CMP (FEMA LE) anion gap 8.0 calc Not Available [facility] [address] [facility], [place], [address], 08/16/2025 14:34:14 08/16/20 25 08/16/2025 CMP (FEMA LE) osmolality 290.2 calc Not Available [facility] [address] [facility], [place], [address], 08/16/2025 14:34:14 08/16/20 25 08/16/2025 LIPID PROFI LE (FEMA LE) cholesterol 145.0 mg/dL 0.0-20 0.0 Not Available [facility] [address] [facility], [place], [address], 08/16/2025 14:34:17 08/16/20 25 08/16/2025 LIPID PROFI LE (FEMA LE) trig 83.0 mg/dL 0.0-15 0.0 Not Available [facility] [address] [facility], [place], [address], 08/16/2025 14:34:17 08/16/20 25 08/16/2025 LIPID PROFI LE (FEMA LE) HDL - direct 50.0 mg/dL >40.0 Not Available [facility] [address] [facility], [place], [address], 08/16/2025 14:34:17 08/16/20 25 08/16/2025 LIPID PROFI LE (FEMA LE) VLDL - direct 16.6 mg/dL Not Available [facility] [address] [facility], [place], [address], 08/16/2025 14:34:17 08/16/20 25 08/16/2025 LIPID PROFI LE (FEMA LE) LDL - direct 78.4 mg/dL 0.0-13 0.0 Not Available [facility] [address] [address], [place], [address], 08/16/2025 14:34:17 Result Notes None recorded. Problems Name Problem SNOMED Code Status Onset Date Resolution Date Notes Provider Name and Address Organization Details Recorded Time History of tubal ligation 160101630 Completed 202102/15/2025 Tubal Ligatio n; 4:02PM by Molly Silverman, Office Visit; Promote d; acuity set as *; SHAHEEN ingram [facility] 12:29:08 Total knee replacemen t Completed 202102/15/2025 Total Knee Replace ment; 4:02PM by Molly Silverman, Office Visit; Promote d; acuity set as *; SHAHEEN ingram [facility] 5 12:29:14 Heartburn 00417587 Active [address] [facility] 5 13:09:10 Low back pain 154491080 Active [address] [facility] 5 12:29:11 Ulcer of lower extremity 22667437 Active [address] [facility] 5 12:53:59 Pain in limb 27432329 Active [address] [facility] 5 12:54:03 Allergic contact dermatitis 918630169 Active 2024 Evin Lemus MD [address] [place], [address], [facility], Andre 13:47:45 [facility] 01597343 Active 2024 Forrest Acevedo MD [address] [place] [address], [address], [facility], Andre 13:37:07 Problem Notes None recorded. Procedures Surgical History Date Name Laterality Status Provider Name and Address Organization Details Recorded Time 025 Most Recent Mammogram completed [facility], Andre 02/23/2025 17:14:47 mammography completed [facility], Andre 02/22/2025 18:37:45 025 dual energy X-ray [facility]pti[facility]25 17:17:43 grafting to skin of extremity completed [facility], Andre 08/16/2024 10:54:27 [facility]/15[facility]25 12:29:42 [facility] 12:30:41 [facility] bilateral fallopian tubes [facility]/15/2025 12:31:24 Imaging Results None [...] Not Available Not Available Not Available Vitals None Recorded Social History Question Answer Notes LastModified by Organizat ion Details LastModified Time Tobacco Smoking Status Never Smoker KARY ingram [facility], [facility] 08/16/2024 10:53:21 Are You Blind Or Do [...] difficulty concentrating, remembering or making decisions? [place] [address] Information no t available 02/15/2025 Family History [...] virus, trivalent, preservative 9 completed Not Available [facility] 06/26/2023 02:27:38 pneumococcal polysaccharide PPV23 9 completed Not Available [facility] 06/26/2023 02:27:38 Past Encounters Encounter ID Performer Location Encounter Start Date Encounter Closed Date Diagnosis/Indication Diagnosis SNOMED-CT Code Diagnosis ICD10 Code Diagnosis IMO Codes Diagnosis Note [id number] Forrest Acevedo MD [facility] ([facility]) [address] [place] [phone] 08/16/2025 13:00:16 08/17/2025 12:43:47 Physical examination 3513982 Z00.00 366126 Health Concerns Section Related Observation LastModified by Organization Detai ls LastModified Time None Recorded Concern Status LastModified by Organization Details LastModified Time None Recorded Payers Encounter Date Sequence Insurance Name Policy Number Policy Caicedo Covered Member ID Caicedo Member ID Guarantor Name 08/16/2025 1 [place] Kevin Galeana [id number] Kevin Galeana 08/16/2025 2 [employer] - PLAN F (MEDICARE SUPPLEMENT) Kevin Galeana [id number] Kevin Galeana OBGyn Episode No OBEpisode recorded.
--- OUTSIDE RECORDS SUMMARY | 2025-11-03 16:36 | XMS_ITS | Encounter Summary ---
Author Organization [facility] Address [address] [place] [address] Care Team Providers Care Online Editor Name Role Phone Eyal Acevedo MD Primary Care Provider [phone]- [phone] Encounter Details Date Type Department Care Team (Late st Contact Info) Description 06/23/2012 Ancillary Orders [facility] Pre-Registration Lilly CALL TO MAKE APPOINTMENT ONLY [address] [place] [phone] Duane Jerez MD [address] [place] [address] Thyroid cyst Social History Tobacco Use Types Packs/Day Years Used Date Smoking Tobacco: Never Assessed Comments Unknown Sex and Gender Information Value Date Recorded Sex Assigned at Not on file Legal Sex Female 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
[2025-11-03 16:49] VITALS: BP 177/94; PULSE 94; RESP 18; O2SAT 97
[2025-11-03 17:01] LABS: Hematocrit 43.0 % (36-47); Hemoglobin 13.60 g/dL (11.27-16.99); Mean Corpuscular HGB Conc 31.6 g/dL (30-55); Mean Corpuscular Hemoglobin 29.7 pg (27-33); Mean Corpuscular Volume 93.9 fl (85-98); Nucleated Red Blood Cells % 0 %; Platelet Count 235 10^3/cmm (157-399); Red Blood Count 4.58 10^6/uL (3.85-5.65); White Blood Count 8.92 10^3/uL (3.29-11.43)
--- NOTE | 2025-11-03 17:02 | W.ED.NEUROSD ---
HPI - Neuro Symptoms/Deficit General: Chief Complaint: Neuro Symptoms/Deficit Stated Complaint: stroke like symptoms Time Seen by Provider: 11/03/25 16:30 Source: patient Mode of arrival: ambulatory Limitations: no limitations History of Present Illness: 79-year-old female states she has noticed some right sided facial droop around noon today she had some slight slurred speech as well. She states that she has had some improvement she denies any vision changes denies any weakness in her extremities or difficulty swallowing. Patient's laboratory without any issues. Denies any history of stroke or TIA in the past. Related Data Home Medications ?Medication ?Instructions ?Recorded ?Confirmed cetirizine 10 mg tablet 5 mg PO DAILY PRN Allergy Symptoms 08/15/20 10/29/25 Protonix 1 tab PO DAILY@92908/16/20 10/29/25 vitamin B complex 1 tab PO DAILY@92908/16/20 10/29/25 Vitamin D3 1 tab PO DAILY@92901/25/21 10/29/25 multivitamin with minerals 1 tab PO DAILY@92901/25/21 10/29/25 (Hair,Skin and Nails tablet) polyethylene glycol 3350 17 17 g PO DAILY@92901/25/21 10/29/25 gram/dose oral powder (Miralax) Previous Rx's ?Medication ?Instructions ?Recorded ciprofloxacin HCl 500 mg tablet 500 mg PO BID #14 tabs 01/30/21 (Cipro) potassium chloride 20 mEq 20 meq PO DAILY #14 tabs 01/30/21 tablet,extended release meloxicam 15 mg tablet See Rx Instructions .Route 01/18/23 .COMPLEX #30 tabs triamcinolone acetonide 0.1 % 1 applic topical DAILY contact 03/15/25 topical cream dermatitis #30 grams prednisone 50 mg tablet 50 mg PO DAILY #5 tabs 11/03/25 valacyclovir 1 gram tablet 1,000 mg PO BID 7 days #14 tabs 11/03/25 Allergies Allergy/AdvReac Type Severity Reaction Status Date / Time morphine Allergy ADR-Nausea Verified 12/28/23 11:23 [facility] PFSH: Medical History Posterior tibial tendon dysfunction (PTTD) of left lower extremity Acute pancreatitis Allergic rhinitis History of pancreatitis Surgical History History of knee surgery Family History Other CAD (coronary artery disease) Dementia Social History Smoking and tobacco/nicotine status: never used tobacco/nicotine Alcohol intake: never NIH stroke score NIHSS: Level Of Consciousness - 1a: 0 Level Of Consciousness Questions - 1b: Both Correct Level Of Consciousness Commands - 1c: Both Correct Best Gaze - 2: Normal Visual [place] - 3: No Visual Loss Facial Palsy - 4: Minor Paralysis Motor Arm Right - 5: No Drift Motor Arm Left - 5: No Drift Motor Leg Right - 6: No Drift Motor Leg Left - 6: No Drift Limb Ataxia - 7: Absent Sensory - 8: Normal Best Language - 9: No Aphasia Dysarthia - 10: Normal Extinction And Inattention - 11: 0 Score: Total Score: 1 Physical Exam Const: COMMON NORMALS: patient oriented x3 HENMT: COMMON NORMALS: normocephalic and atraumatic HEAD & SCALP: normocephalic and atraumatic Eye: COMMON NORMALS: Equal, round and reactive pupils present, EOMs intact bilaterally and conjunctivae normal CONJUNCTIVA: Yes conjunctivae normal PUPIL: Yes Equal, round and reactive pupils present Neck/C-Spine: COMMON NORMALS: full ROM and supple Chest: COMMONS NORMALS: normal inspection of the chest and normal palpation of entire chest wall Resp: COMMON NORMALS: normal respiratory effort, No retractions, No use of accessory muscles and clear to auscultation bilaterally AUSCULTATION: clear to auscultation bilaterally Cardio: COMMON NORMALS: regular rate, regular rhythm and No murmurs present (Cardio) RATE: regular rate RHYTHM: regular rhythm Extremity: COMMON NORMALS: normal to inspection and full ROM Neuro: COMMON NORMALS: patient oriented x3 and moves all extremities SPEECH: speech normal GAIT: Yes Normal gait present MOTOR EXAM: 5/5 motor strength present throughout Psych: COMMON NORMALS: mental status grossly normal, Normal thought process present and cooperative THOUGHT PROCESS: Normal thought process present Skin: COMMON NORMALS: no rashes or lesions noted and no wounds GENERAL SKIN EXAM: no rashes or lesions noted Course Vital Signs: Vital signs: Vital Signs Temperature 98.3 F 11/03/25 16:28 Pulse Rate 86 11/03/25 17:03 Respiratory Rate 18 11/03/25 17:03 Blood Pressure 175/100 11/03/25 17:03 Pulse Oximetry 94 11/03/25 17:03 Oxygen Delivery Me thod Room Air 11/03/25 16:49 MDM - Neuro Symptoms/Deficit Medical Decision Making Patient presents with right sided facial droop that started at noon she has no other symptoms whatsoever here. Differential includes CVA, intracerebral hemorrhage, Hudson's palsy. Head CT here is normal NIH here was 1. She has no headache no signs of intracerebral hemorrhage. 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 Did offer her admission but she states she wants to go home I do not believe this is an acute stroke she is ambulatory without any difficulties we will start her on prednisone along with acyclovir she is to follow-up with her PCP and return if worsening. Medical Records I reviewed the patient's medical records. Lab Data I reviewed the patient's lab results. 11/03/25 16:53 11/03/25 16:[address] 11/03/25 16:33 IMPRESSION: 1. No acute intracranial abnormality. ASSESSMENT: ASPECTS ([place] Stroke Program Early CT Score) is 10. ADDENDUM: 11/03/25 3672 The findings were verbally communicated by telephone with Dr. EDWARDS at 4:49 PM PHYSICAL EDUCATION INSTRUCTOR on 11/03/2025. Laboratory Results WBC 8.92 10^3/uL (3.29-11.43) 11/03/25 16:53 RBC 4.58 10^6/uL (3.85-5.65) 11/03/25 16:53 Hgb 13.60 g/dL (11.27-16.99) 11/03/25 16:53 Hct 43.0 % (36-47) 11/03/25 16:53 MCV 93.9 fl (85-98) 11/03/25 16:53 MCH 29.7 pg (27-33) 11/03/25 16:53 MCHC 31.6 g/dL (30-55) 11/03/25 16:53 RDW 13.2 % (12.1-15.1) 11/03/25 16:53 Plt Count 235 10^3/cmm (157-399) 11/03/25 16:53 MPV 10.8 fL (7.4-10.4) H 11/03/25 16:53 Neut % (Auto) 60.5 % 11/03/25 16:53 Lymph % (Auto) 27.9 % 11/03/25 16:53 [place] % (Auto) 8.0 % 11/03/25 16:53 Eos % (Auto) 2.4 % 11/03/25 16:53 Baso % (Auto) 0.8 % 11/03/25 16:53 Neut # (Auto) 5.40 10^3/uL (1.8-7.7) 11/03/25 16:53 Lymph # (Auto) 2.5 10^3/uL (0.8-4.8) 11/03/25 16:53 [place] # (Auto) 0.7 10^3/uL (0.2-0.9) 11/03/25 16:53 Eos # (Auto) 0.2 10^3/uL (0.0-0.8) 11/03/25 16:53 Baso # (Auto) 0.1 10^3/uL (0.0-0.1) 11/03/25 16:53 Nucleated RBC % (auto) 0 % 11/03/25 16:53 Nucleated RBCs # 0.0 /100WBC 11/03/25 16:53 PT 11.90 SECONDS (12.1-14.9) L 11/03/25 16:53 INR 0.82 (0.8-1.2) 11/03/25 16:53 APTT 23.6 SECONDS (23.9-36.7) L 11/03/25 16:53 Sodium 139 mmol/L (136-145) 11/03/25 16:53 Potassium 3.6 mmol/L (3.5-5.1) 11/03/25 16:53 Chloride 103 mmol/L (98-107) 11/03/25 16:53 Carbon Dioxide 22 mmol/L (22-29) 11/03/25 16:53 Anion Gap 17.6 (5-19) 11/03/25 16:53 BUN 17 mg/dL (8-23) 11/03/25 16:53 Creatinine 0.7 mg/dL (0.5-0.9) 11/03/25 16:53 GFR Calculation Not Reportable 11/03/25 16:53 Glucose 83 mg/dL (65-115) 11/03/25 16:53 POC Glucose 81 mg/dL (70-110) 11/03/25 16:36 Calculated Osmolality 289 mOsm/kg (285-295) 11/03/25 16:53 Calcium 9.2 mg/dL (8.5-10.5) 11/03/25 16:53 Total Bilirubin 0.3 mg/dL (0.15-1.2) 11/03/25 16:53 AST 20 U/L (0-32) 11/03/25 16:53 ALT 13 U/L (0-33) 11/03/25 16:53 Alkaline Phosphatase 80 U/L (35-105) 11/03/25 16:53 Total Protein 7.8 g/dL (6.6-8.7) 11/03/25 16:53 Albumin 4.0 g/dL (3.5-5.2) 11/03/25 16:53 Globulin 3.8 g/dL (1.3-4.6) 11/03/25 16:53 Urine Color Yellow (Yellow) 11/03/25 17:07 Urine Appearance Clear (CLEAR) 11/03/25 17:07 Urine pH 5.5 (5-7) 11/03/25 17:07 Ur Specific [place] 1.005 (1.005-1.030) 11/03/25 17:07 Urine Protein Negative (Negative) 11/03/25 17:07 Urine Glucose (UA) Negative (Normal) 11/03/25 17:07 Urine Ketones Negative (Negative) 11/03/25 17:07 Urine Blood Negative (Negative) 11/03/25 17:07 Urine Nitrate Negative (Negative) 11/03/25 17:07 Urine Bilirubin Negative (Negative) 11/03/25 17:07 Urine Urobilinogen 0.2 mg/dL (Negative) 11/03/25 17:07 Ur Leukocyte Esterase Negative (Negative) 11/03/25 17:07 Urine RBC 0-2 /hpf (0-2) 11/03/25 17:07 Urine WBC 0-5 /hpf (0-5) 11/03/25 17:07 Ur Squamous Epith Cells 0-5 /hpf (0-5) 11/03/25 17:07 Amorphous Sediment Not Reportable 11/03/25 17:07 Urine Bacteria None seen /hpf (NONE) 11/03/25 17:07 Hyaline Casts 0-4 /lpf H 11/03/25 17:07 Urine Opiates Screen Negative ng/mL (Negative) 11/03/25 17:07 Ur Barbiturates Screen Negative ng/mL (Negative) 11/03/25 17:07 Ur Phencyclidine Scrn Negative ng/mL (Negative) 11/03/25 17:07 Ur Amphetamines Screen Negative ng/mL (Negative) 11/03/25 17:07 U Benzodiazepines Scrn Negative ng/mL (Negative) 11/03/25 17:07 Urine Cocaine Screen Negative ng/mL (Negative) 11/03/25 17:07 U Marijuana (THC) Screen Negative ng/mL (Negative) 11/03/25 17:07 All radiology interpretation(s) finalized by discharge Discharge Plan Discharge Patient Disposition: Home Clinical Impression: Hudson's palsy Condition: Stable Prescriptions: New prednisone 50 mg tablet 50 mg PO DAILY Qty: 5 0RF valacyclovir 1 gram tablet 1,000 mg PO BID 7 Days Qty: 14 0RF No Action triamcinolone acetonide 0.1 % cream 1 applic topical DAILY Qty: 30 0RF meloxicam 15 mg tablet See Rx Instructions .ROUTE .COMPLEX Qty: 30 0RF Dose Instruction: TAKE 1 TABLET BY MOUTH DAILY Rx Instructions: TAKE 1 TABLET BY MOUTH DAILY Hair,Skin and Nails Tablet 1 tab PO DAILY@0930 Miralax 17 gram/dose Powder 17 g PO DAILY@0930 Vitamin D3 1 tab PO DAILY@0930 Cipro 500 mg tablet 500 mg PO BID Qty: 14 0RF potassium chloride 20 mEq tablet extended release 20 meq PO DAILY Qty: 14 0RF cetirizine 10 mg Tablet 5 mg PO DAILY PRN (Reason: Allergy Symptoms) Protonix 1 tab PO DAILY@0930 vitamin B complex 1 tab PO DAILY@0930 Discharge Orders: Discharge ED (Routine); Ordered 11/03/25 Ordered By: Lobito Edwards Referrals: Eyal Acevedo MD [Primary Care Provider, Family Practice] - 4-7 days Discharge Diet: Advance as tolerated Discharge Activity: Resume usual activity Patient Instructions: Hudson Palsy (ED) Print Language: Gibraltarian Coding Level of Care Code ED [employer] for Anam Aguilera
[2025-11-03 17:03] VITALS: BP 175/100; PULSE 86; RESP 18; O2SAT 94
[2025-11-03 17:14] LABS: Glucose Urine UA Negative (Normal); Nitrate Urine Negative (Negative); Specific Gravity, Urine 1.005 (1.005-1.030)
[2025-11-03 17:15] LABS: INR 0.82 (0.8-1.2); Partial Thromboplastin Time 23.6 SECONDS (23.9-36.7); Prothrombin Time 11.90 SECONDS (12.1-14.9)
[2025-11-03 17:18] LABS: Add Urine Microscopic? YES
[2025-11-03 17:23] LABS: PCP Screen Urine Negative (Negative)
[2025-11-03 17:27] LABS: Alanine Aminotransferase 13 U/L (0-33); Albumin Level 4.0 g/dL (3.5-5.2); Alkaline Phosphatase 80 U/L (35-105); Anion Gap 17.6 (5-19); Aspartate Amino Transferase 20 U/L (0-32); Blood Urea Nitrogen 17 mg/dL (8-23); Calcium 9.2 mg/dL (8.5-10.5); Carbon Dioxide 22 mmol/L (22-29); Chloride 103 mmol/L (98-107); Globulin 3.8 g/dL (1.3-4.6); Glucose 83 mg/dL (65-115); Osmolality Calculated 289 mOsm/kg (285-295); Potassium 3.6 mmol/L (3.5-5.1); Sodium 139 mmol/L (136-145); Total Protein 7.8 g/dL (6.6-8.7)
[2025-11-03 17:48] VITALS: BP 165/80; PULSE 78; RESP 16; O2SAT 96
== END 2025-11-03 17:51 | disposition home or self-care (01) ==
PROVIDERS: Emergency Provider Emergency Medicine; PCP Family Medicine
DX: G51.0 Bell's palsy (principal)
CPT/HCPCS: 36415; 36416; 70450; 80053; 80306; 81001; 82962; 85025; 85610; 85730; 93005; 99284